=== PATIENT | male | born 1935 | race African-American/Black ===

== ENCOUNTER 2023-02-03 11:32 | Inpatient (IN) | payer OTHER ==
--- OUTSIDE RECORDS SUMMARY | 2023-02-03 11:39 | XMS REPORT | Continuity of Care Document ---
:1935 Author Organization [facility] t Address [address] [place] [address] [place] [id number] Care Team Providers Name Role Phone Rodolfo Durand Primary Care Physician [id number] Attending Clinician Unavailable RODOLFO DURAND Attending Clinician Unavailable LARRY SORTO Attending Clinician Unavailable JEFF FISHER Attending Clinician Unavailable ELVIRA MENDEZ Attending Clinician Unavailable Gita BOYD, [facility] Attending Clinician Doctor Unassigned, [place] Attending Clinician Unavailable Suki Lee RN Attending Clinician Unavailable ELAN WARNER Attending Clinician Unavailable Perri BOYD, Lilian Sahu Attending Clinician [phone] Elan Warner MD Attending Clinician Jackie Lennon Attending Clinician JACKIE GUTIÉRREZ Attending Clinician Unavailable ERIK PEDERSEN Attending Clinician Unavailable Erik Pedersen Rahil Attending Clinician Unavailable Celio BOYD, Kei Corado Attending Clinician Melody Bishop MA Attending Clinician Unavailable Waylon Clakre MD Attending Clinician Lucero PhD, Myla Reed Attending Clinician RASHAAD JAIN Attending Clinician Unavailable [id number] Admitting Clinician Unavailable ELAN WARNER Admitting Clinician Unavailable Elan Warner MD Admitting Clinician RODOLFO DURAND Admitting Clinician Unavailable Erik Pedersen Rahil Admitting Clinician Unavailable Payers Payer Name Policy Type Policy Number Effective Date Expiration Date S [facility] MEDIC[place] PART A [id number] AND B 00:00:00 00:00:00 [facility] [id number] GENERIC OTHER [id number] 2021 00:00:00 [facility] [id number] 2002 PLAN-[facility] 00:00:00 Problems Condition Condition Condition Status Onset Resolution Last Treating Co mments Source Name Details Category Date Date Treatment Clinician Date Class 2 Class 2 Disease Active 2022-03 [facility] obesity obesity 03-19 due to due to 00:00: Hospita excess excess 00 l calories calories without without serious serious comorbidit comorbidit y with y with body mass body mass index index (BMI) of (BMI) of 36.0 to 36.0 to 36.9 in 36.9 in adult adult Primary Primary Disease Active 2022-03 [facility] open angle open angle 03-19 glaucoma glaucoma 00:00: Hospit a (POAG) of (POAG) of 00 l both eyes both eyes Benign Benign Disease Active 2022-03 [facility] non-nodula non-nodula 03-19 r r 00:00: Hospita 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 a without a without lower lower urinary urinary tract tract symptoms symptoms Memory Memory Disease Active [facility] loss loss 9 Health 00:00: 00 Epilepsy Epilepsy Disease Active Metho di 10-25 st 00:00: Hospita 00 l 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 10-25 st 00:00: Hospita 00 l Procedure Procedure Disease Active [facility] not not 5-02 Health carried carried 00:00: out out 00 Seizure Seizure Disease Active Univers 3-13 ity of 00:00: [address] Branch 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 00:00: Hospita disease disease 00 l Seizure Seizure Disease Active 2021-[address] 00:00: Hospita 00 l Dementia Dementia Disease Active [facility] without without 4-12 Health behavioral behavioral 00:00: disturbanc disturbanc 00 e e 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 [address] st Alzheimer' Alzheimer' 00:00: Ho spita s dementia s dementia 00 l Essential Essential Disease Active Met hodi hypertensi hypertensi 4-12 st on on 00:00: Hospita 00 l 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 4 st 00:00: Hospita 00 l No known No known Disease Metho di active active st problems problems Hospit a l Allergies, Adverse Reactions, Alerts Allergy Allergy Status Severity Reaction(s) Onset Inactive Treating Comm ents Source Name Type Date Date Clinician NKA Allergy Active 2021-03 ENCCLR 0-14 14:00: 23 NKA Allergy Active 2021-03 ENCCLR 0-14 14:00: 23 NO KNOWN Drug Active Univers ALLERGIE Class ity of [facility] Family History Family Member Diagnosis Comments Start Date Stop Date Source Natural father [facility] Natural mother Hy[facility] Social History Social Habit Start Date Stop Date Quantity Comments Source Gender identity [facility] Sexual orientation [facility] History of Social 2023-01-17 2023-01-[address] function 00:00:00 00:00:00 Hospital Alcohol intake 2023-01-17 2023-01-17 Current [facility] 00:00:00 00:00:00 non-drinker of Hospital alcohol (finding) Exposure to 2022-06-24 2022-07-04 Not sure [facility] SARS-CoV-2 (event) 00:00:00 10:35:00 History SDOH Food 2022-05-17 2022-05-17 1 Univers ity of Worry 00:00:00 00:00:00 [place] [facility] History SDOH Food 2022-05-17 2022-05-17 1 Univers ity of Scarcity 00:00:00 00:00:00 [place] [facility] History SDOH 2022-05-17 2022-05-17 2 University o f Transport Med 00:00:00 00:00:00 [place] [facility] History SDOH 2022-05-17 2022-05-17 2 University o f Transport Non-Med 00:00:00 00:00:00 [place] [facility] History SDOH 2021-10-11 2021-10-11 2 [facility] Alcohol Frequency 00:00:00 00:00:00 History SDSD 2021-10-11 2021-10-11 0 [facility] Alcohol Std Drinks 00:00:00 00:00:00 History SDSD 2021-10-11 2021-10-11 2 [facility] Alcohol Binge 00:00:00 00:00:00 Education 2021-06-01 2021-06-01 18 [facility] 00:00:00 00:00:00 Alcohol Comment 2021-06-01 2021-06-01 has not had much [facility] 00:00:00 00:00:00 to drink for 50 years Tobacco use and 2020-11-05 2020-11-05 Smokeless [facility] exposure 00:00:00 00:00:00 tobacco non-user Hospital Sex Assigned At [birth year] [facility] Smoking Status Start Date Stop Date Source Tobacco [facility] [place] [facility] Never smoked tobacco [facility] Medications Ordered Filled Start Stop Current Ordering Indication Dosage Frequency Signature Comments Components Source Medication Medication Date Date Medication? Clinician (SIG) Name Name bimatoprost 2022-03- No 1[drp] QD 1 drop M etholegario (LEEANN) 03-[address] 0.01 % 12:06: 00:00 Hospita ophthalmic 44 :00 l drops aspirin 2022-03 Yes 81mg QD Take 1 [facility] (ECOTRIN) 1-15 tablet (81 st 81 MG 11:46: mg total) Hospita enteric 38 by mouth l coated daily. tablet simvastatin 2022-03 Yes [id number] 40mg QD Take 1 [facility] (ZOCOR) 40 1-15 tablet (40 st mg tablet 00:00: mg total) Hos bg 00 by mouth l nightly. OXcarbazepi 2022-03 Yes [id number] 450mg Q.5D Take 3 Methodi ne 1-[address] (TRILEPTAL) 00:00: (450 mg Hos bg 150 MG 00 total) by l tablet mouth 2 (two) times a day. NIFEdipine 2022-03 Yes [id number] 30mg QD Take 1 M ethodi ER 1-15 tablet (30 st (PROCARDIA- 00:00: mg total) H ospita XL) 30 MG 00 by mouth l 24 hr daily. tablet memantine 2022-03 Yes [id number] 5mg QD Take 1 Me thodi (NAMENDA) 5 1-15 tablet (5 st MG tablet 00:00: mg total) Hos bg 00 by mouth l daily. hydrALAZINE 2022-03 Yes [id number] 25mg Q.[id number] Take 1 [facility] (APRESOLINE 1-15 [id number] tablet (25 st ) 25 MG 00:00: 3D mg total) Hospi ta tablet 00 by mouth 3 l (three) times a day with meals. finasteride 2022-03 Yes [id number] 5mg QD Take 1 [facility] (PROSCAR) 5 1-15 tablet (5 st mg tablet 00:00: mg total) Hos bg 00 by mouth l daily. donepeziL 2022-03 Yes [id number] 10mg QD Take 1 Me thodi (ARICEPT) 1-15 tablet (10 st 10 MG 00:00: mg total) Hospita tablet 00 by mouth l nightly. Combigan 2022-03 Yes [id number] 1[drp] Q.5D Administer [facility] 0.2-0.5 % 1-15 [id number] [address] ophthalmic 00:00: both eyes Ho spita solution 00 2 (two) l times a day. bimatoprost 2022-03 Yes [id number] 1[drp] QD Administer [facility] (LUMIGAN) 03-19 [id number] 0.01 % 00:00: both eyes Hospit a ophthalmic 00 nightly. l drops OXcarbazepi Yes [id number] 450mg Q.5D Take 3 UT ne 11-03 tablets Health (Trileptal) 00:00: (450 mg 150 MG 00 total) by tablet mouth in the morning and 3 tablets (450 mg total) in the evening. donepezil 2025- No [id number] 10mg Take 1 U T (Aricept) 11-03-17 tablet (10 Hea lth 10 MG 00:00: 04:59 mg total) tablet 00 :00 by mouth every night. memantine 2023- No [id number] 5mg Q.5D Take 1 U T (Namenda) 5 11-03 08-27 tablet (5 He alth MG tablet 00:00: 04:59 mg total) 00 :00 by mouth in the morning and 1 tablet (5 mg total) in the evening. donepeziL 2022- No 10mg QD Take 1 Metho di (ARICEPT) 11-03-15 tablet (10 st 10 MG 00:00: 00:00 mg total) Hospit a tablet 00 :00 by mouth l nightly. memantine 2022- No 5mg Take 1 Metho di (NAMENDA) 5 11-03-15 tablet (5 st MG tablet 00:00: 00:00 mg total) Ho spita 00 :00 by mouth. l OXcarbazepi 2022- No [id number] TAKE 3 UT ne 10-17 TABLETS BY Health (Trileptal) 00:00: 00:00 MOUTH IN 150 MG 00 :00 THE tablet MORNING AND 3 TABLETS IN THE EVENING. finasteride 0 Yes [id number] 5mg QD Take 1 UT (Proscar) 5 8-10 tablet (5 Hea lth MG tablet 00:00: mg total) 00 by mouth 1 (one) time each day. Do not crush, chew, or split. simvastatin 2022-0 Yes [id number] 40mg Take 1 UT (Zocor) 40 8-10 tablet (40 Hea lth MG tablet 00:00: mg total) 00 by mouth every night. OXcarbazepi 2022-2022- No 450mg Take 3 Me thodi ne 7-15 11-[address] (TRILEPTAL) 00:00: 00:00 (450 mg Ho spita 150 MG 00 :00 total) by l tablet mouth. hydrALAZINE 2023- No [id number] 25mg Q.[id number] Take 1 UT (Apresoline 09-06 07-05 [id number] tablet (25 Health ) 25 MG 00:00: 04:59 3D mg total) tablet 00 :00 by mouth in the morning and 1 tablet (25 mg total) at noon and 1 tablet (25 mg total) in the evening. NIFEdipine Yes [id number] 30mg Take 1 U T XL 5-23 tablet (30 Health (Procardia 00:00: mg total) XL) 30 MG 00 by mouth 1 24 hr (one) time tablet each day before breakfast. ( DO NOT CRUSH CHEW OR SPLIT) NIFEdipine 2022- No 30mg QD Take 1 Meth olegario ER 07-25 11-15 tablet (30 st (PROCARDIA- 00:00: 00:00 mg total) Hospita XL) 30 MG 00 :00 by mouth l 24 hr daily. tablet donepezil 2025- No [id number] 10mg Take 1 U T (Aricept) 07-04-17 tablet (10 Hea lth 10 MG 00:00: 04:59 mg total) tablet 00 :00 by mouth every night. memantine 2023- No [id number] 5mg Q.5D Take 1 U T (Namenda) 5 07-04-27 tablet (5 He alth MG tablet 00:00: 04:59 mg total) 00 :00 by mouth in the morning and 1 tablet (5 mg total) in the evening. donepezil 2022-2022- No [id number] 10mg Take 1 U T (Aricept) 07-04 tablet (10 Hea lth 10 MG 00:00: 00:00 mg total) tablet 00 :00 by mouth every night. memantine 2022-0 2022- No [id number] 5mg Q.5D Take 1 U T (Namenda) 5 5-02 09-01 tablet (5 He alth MG tablet 00:00: 00:00 mg total) 00 :00 by mouth in the morning and 1 tablet (5 mg total) in the evening. aspirin 81 3-0 Yes 81mg QD Take 81 mg U T MG EC 4-27 by mouth 1 Health tablet 11:14: (one) time 30 each day. brimonidine 3-0 Yes 1[drp] Q12H Administer UT -timolol 4-27 1 drop Health (Combigan) 11:14: into both 0.2-0.5 % 30 eyes every ophthalmic 12 solution (twelve) hours. bimatoprost 3-0 Yes 1[drp] 1 drop UT (Lumigan) 4-27 every Health 0.03 % 11:14: night. ophthalmic 30 solution aspirin 81 3-0 Yes 81mg QD Take 81 mg U T MG EC 4-27 by mouth 1 Health tablet 11:14: (one) time 30 each day. brimonidine 3-0 Yes 1[drp] Q12H Administer UT -timolol 4-27 1 drop Health (Combigan) 11:14: into both 0.2-0.5 % 30 eyes every ophthalmic 12 solution (twelve) hours. bimatoprost 3-0 Yes 1[drp] 1 drop UT (Lumigan) 4-27 every Health 0.03 % 11:14: night. ophthalmic 30 solution aspirin 81 3-0 Yes 81mg QD Take 81 mg U T MG EC 4-27 by mouth 1 Health tablet 11:14: (one) time 30 each day. brimonidine 3-0 Yes 1[drp] Q12H Administer UT -timolol 4-27 1 drop Health (Combigan) 11:14: into both 0.2-0.5 % 30 eyes every ophthalmic 12 solution (twelve) hours. bimatoprost 3-0 Yes 1[drp] 1 drop UT (Lumigan) 4-27 every Health 0.03 % 11:14: night. ophthalmic 30 solution OXcarbazepi 2023-0 2024- No [id number] 450mg Q.5D Take 3 UT ne 4-25 04-25 tablets Health (Trileptal) 00:00: 04:59 (450 mg 150 MG 00 :00 total) by tablet mouth in the morning and 3 tablets (450 mg total) in the evening. OXcarbazepi 2023-0 2024- No [id number] 450mg Q.5D Take 3 DC ne 4-25 04-25 tablets Health (Trileptal) 00:00: 04:59 (450 mg 150 MG 00 :00 total) by tablet mouth in the morning and 3 tablets (450 mg total) in the evening. hydrALAZINE 2023-0 Yes 25mg Take 1 Univ ers 25 mg 3-14 tablet by ity of tablet 14:55: mouth in [place] [address] the Medical morning Branch and 1 tablet at noon and 1 tablet in the evening. Takes at 0900, 1500, 2100 OXcarbazepi 2023-0 Yes 450mg Take 3 Uni vers ne 150 mg 3-14 tablets by ity of tablet 14:55: mouth in [place] [address] the Medical morning Branch and 3 tablets in the evening. donepeziL 2022-0 Yes 10mg Take 1 Univer s 10 mg 3-14 tablet by ity of tablet 14:55: mouth at [place] [address] bedtime. Medical Branch aspirin 81 2022-0 Yes 81mg Take 1 Unive rs mg chewable 3-14 tablet by ity of tablet 14:55: mouth in [place] [address] the Medical morning. Branch Brimonidine 2022-0 Yes 2[drp] Place 2 U nivers -Timolol 3-14 Drops in ity of (COMBIGAN) 14:55: each eye Abdirashid as 0.2-0.5 % 34 in the Medical ophthalmic morning Branch drops and 2 Drops in the evening. bimatoprost 2022-0 Yes at Univer s (LUMIGAN) 3-14 bedtime. ity of 0.01 % 14:55: [place] [address] Medical drops Branch finasteride 3-0 Yes 5mg Take 1 Univ ers 5 mg tablet 3-14 tablet by ity of 14:55: mouth in [place] [address] the Medical morning. Branch NIFEdipine 3-0 Yes 30mg Take 1 Unive rs ER 30 mg 3-14 tablet by ity of tablet 14:55: mouth in [place] [address] the Medical morning. Branch hydrALAZINE 3-0 Yes 25mg Take 1 Univ ers 25 mg 3-14 tablet by ity of tablet 14:55: mouth in [place] [address] the Medical morning Branch and 1 tablet at noon and 1 tablet in the evening. Takes at 0900, 1500, 2100 OXcarbazepi 2023-0 Yes 450mg Take 3 Uni vers ne 150 mg 3-14 tablets by ity of tablet 14:55: mouth in [place] [address] the Medical morning Branch and 3 tablets in the evening. donepeziL 2023-0 Yes 10mg Take 1 Univer s 10 mg 3-14 tablet by ity of tablet 14:55: mouth at [place] [address] bedtime. Medical Branch aspirin 81 2022-0 Yes 81mg Take 1 Unive rs mg chewable 3-14 tablet by ity of tablet 14:55: mouth in [place] [address] the Medical morning. Branch Brimonidine 2022-0 Yes 2[drp] Place 2 U nivers -Timolol 3-14 Drops in ity of (COMBIGAN) 14:55: each eye Abdirashid as 0.2-0.5 % 34 in the [facility] ophthalmic morning Branch drops and 2 Drops in the evening. bimatoprost 3-0 Yes at Univer s (LUMIGAN) 3-14 bedtime. ity of 0.01 % 14:55: [place] [address] Medical drops Branch finasteride 3-0 Yes 5mg Take 1 Univ ers 5 mg tablet 3-14 tablet by ity of 14:55: mouth in [place] [address] the Medical morning. Branch NIFEdipine 2022-0 Yes 30mg Take 1 Unive rs ER 30 mg 3-14 tablet by ity of tablet 14:55: mouth in [place] [address] the Medical morning. Branch hydrALAZINE 3-0 Yes 25mg Take 1 Univ ers 25 mg 3-14 tablet by ity of tablet 14:55: mouth in [place] [address] the Medical morning Branch and 1 tablet at noon and 1 tablet in the evening. Takes at 0900, 1500, 2100 OXcarbazepi 2023-0 Yes 450mg Take 3 Uni vers ne 150 mg 3-14 tablets by ity of tablet 14:55: mouth in [place] [address] the Medical morning Branch and 3 tablets in the evening. donepeziL 2023-0 Yes 10mg Take 1 Univer s 10 mg 3-14 tablet by ity of tablet 14:55: mouth at [place] [address] bedtime. Medical Branch aspirin 81 3-0 Yes 81mg Take 1 Unive rs mg chewable 3-14 tablet by ity of tablet 14:55: mouth in [place] [address] the Medical morning. Branch Brimonidine Yes 2[drp] Place 2 U nivers -Timolol 3-14 Drops in ity of (COMBIGAN) 14:55: each eye Abdirashid as 0.2-0.5 % 34 in the Medical ophthalmic morning Branch drops and 2 Drops in the evening. bimatoprost 2022-0 Yes at Univer s (LUMIGAN) 3-14 bedtime. ity of 0.01 % 14:55: [place] ophthalmic Medical drops Branch finasteride 0 Yes 5mg Take 1 Univ ers 5 mg tablet 3-14 tablet by ity of 14:55: mouth in [place] [address] the Medical morning. [place] NIFEdipine 0 Yes 30mg Take 1 Unive rs ER 30 mg 3-14 tablet by ity of tablet 14:55: mouth in [place] [address] the Medical morning. [place] carvediloL 0 2022- No 12.5mg Take 1 Un derek 12.5 mg 3-14 03-14 tablet by ity of tablet 14:55: 00:00 mouth in [place] 29 :00 the Medical morning Branch and 1 tablet in the evening. Take with meals. simvastatin 2022-0 2022- No 40mg Take 1 Uni vers 40 mg 3-14 03-14 tablet by ity of tablet 14:55: 00:00 mouth at [place] 29 :00 bedtime. [facility] aspirin 0 Yes 81mg 81 mg, Univers chewable 3-14 Oral, ity of tablet 81 14:00: DAILY, [place] mg 00 First dose Medical on [facility] 05/16/22 at 0900, Until Discontinu ed, Routine carvediloL 0 Yes 12.5mg 12.5 mg, U nivers (COREG) 3-14 Oral, BID ity of tablet 12.5 13:00: MEALS, [place] mg 00 First dose Medical on [facility] 05/16/22 at 0800, Until Discontinu ed, Routine donepeziL 0 Yes 10mg 10 mg, Univer s (ARICEPT) 3-14 Oral, QHS, ity of tablet 10 02:00: First dose [place] mg 00 on [facility] 05/15/22 at [place] 2100, Until Discontinu ed, Routine QUEtiapine 2022- No 25mg 25 mg, Univ ers (SEROQUEL) 05-16 03-14 Oral, ity of tablet 25 02:00: 01:19 ONCE, 1 [place] mg [place] :00 dose, On Medical [facility] Branch 05/15/22 at 2100, Routine haloperidol 0 Yes 2.5mg 2.5 mg, Un derek lactate 3-14 Slow IV ity of (HALDOL) 01:30: Push, PRN, Abdirashid as injection 34 2 doses, Medica l 2.5 mg Starting Branch on Sun05/15/22 at 2030, Until Discontinu ed, Routine, Psychosis hydrALAZINE 0 Yes 25mg 25 mg, Univ ers (APRESOLINE 3-14 Oral, TID, it y of ) tablet 25 01:00: First dose [place] mg 00 on [facility] Medical 05/15/22 at Branch 1999, Until Discontinu ed, Routine OXcarbazepi 0 Yes 450mg 450 mg, Un derek ne 3-14 Oral, BID, ity of (TRILEPTAL) 01:00: First dose [place] tablet 450 00 on [facility] mg 05/15/22 at Branch 1999, Until Discontinu ed, Routine enoxaparin 0 Yes 30mg 30 mg, Unive rs (LOVENOX) 05-15 Subcutaneo ity of injection 22:00: us, DAILY, [place] 30 mg 00 First dose Medical on [place] Branch 05/15/22 at 1700, Until Discontinu ed, Routine acetaminoph 0 Yes 650mg 650 mg, Un derek en 13 Oral, ity of (TYLENOL) 19:58: Q6HPRN, [place] tablet 650 56 Starting Medic al mg on Sun Branch 05/15/22 at 1458, Until Discontinu ed, Routine, Pain (scale 1-3) NaCl 0.9% 2022- No 500mL at 999 Univ ers (NS) bolus 05-15-13 mL/hr, 500 it y of infusion 18:15: 20:37 mL, IV [place] 500 mL 00 :00 Infusion, Medical ONCE, 1 Branch dose, On Sun05/15/22 at 1315, STAT hydralAZINE 2022- No 10mg 10 mg, Uni vers (APRESOLINE 3-07 03-07 Slow IV ity of ) injection 02:15: 02:13 [place], [place] 10 mg 00 :00 ONCE, 1 Medical dose, On Branch Sun05/08/22 at 2015, [facility] hydralAZINE 0 2022- No 10mg 10 mg, Uni vers (APRESOLINE 307 03-07 Slow IV ity of ) injection 01:15: 01:17 [place], [place] 10 mg 00 :00 ONCE, 1 Medical dose, On Branch Sun05/08/22 at 1915, [facility] memantine 0 Yes [id number] 5mg Q.5D Take 1 UT (Namenda) 5 2-15 tablet (5 Hea lth MG tablet 00:00: mg total) 00 by mouth in the morning and 1 tablet (5 mg total) in the evening. donepezil 2022- No [id number] 10mg Take 1 U T (Aricept) 2-15 05-17 tablet (10 Hea lth 10 MG 00:00: 04:59 mg total) tablet 00 :00 by mouth every night. donepezil 2022- No [id number] 10mg Take 1 U T (Aricept) 2-15 05-02 tablet (10 Hea lth 10 MG 00:00: 00:00 mg total) tablet 00 :00 by mouth every night. memantine 2022- No [id number] 5mg Q.5D Take 1 U T (Namenda) 5 2-15 05-02 tablet (5 He alth MG tablet 00:00: 00:00 mg total) 00 :00 by mouth in the morning and 1 tablet (5 mg total) in the evening. NIFEdipine Yes [id number] Take 1 U T XL 1-30 tablet by Health (Procardia 00:00: mouth once XL) 30 MG 00 a day 24 hr before tablet breakfast ( Do not crush, chew, or split) NIFEdipine 2022-0 Yes [id number] Take 1 U T XL 1-30 tablet by Health (Procardia 00:00: mouth once XL) 30 MG 00 a day 24 hr before tablet breakfast ( Do not crush, chew, or split) hydrALAZINE 2021-03- No [id number] 25mg Q.[id number] Take 1 UT (Apresoline 04-10 [id number] tablet (25 Health ) 25 MG 00:00: 05:59 3D mg total) tablet 00 :00 by mouth in the morning and 1 tablet (25 mg total) at noon and 1 tablet (25 mg total) in the evening. hydrALAZINE 2021-03- No [id number] 25mg Q.[id number] Take 1 UT (Apresoline 04-10 [id number] tablet (25 Health ) 25 MG 00:00: 05:59 3D mg total) tablet 00 :00 by mouth in the morning and 1 tablet (25 mg total) at noon and 1 tablet (25 mg total) in the evening. carvedilol 2021-03- No [id number] 12.5mg Take 1 UT (Coreg) 03-13 tablet Health 12.5 MG 00:00: 00:00 (12.5 mg tablet 00 :00 total) by mouth in the morning and 1 tablet (12.5 mg total) in the evening. Take with meals. Take 12.5 mg by mouth in the morning and 12.5 mg in the evening. Take with meals.. finasteride Yes [id number] 5mg QD Take 1 UT (Proscar) 5 5-24 tablet (5 Hea lth MG tablet 00:00: mg total) 00 by mouth 1 (one) time each day. Do not crush, chew, or split. simvastatin Yes [id number] 40mg Take 1 UT (Zocor) 40 5-24 tablet (40 Hea lth MG tablet 00:00: mg total) 00 by mouth every night. finasteride Yes [id number] 5mg QD Take 1 UT (Proscar) 5 5-24 tablet (5 Hea lth MG tablet 00:00: mg total) 00 by mouth 1 (one) time each day. Do not crush, chew, or split. simvastatin 0 Yes [id number] 40mg Take 1 UT (Zocor) 40 5-24 tablet (40 Hea lth MG tablet 00:00: mg total) 00 by mouth every night. finasteride Yes [id number] Take 1 [facility]i (PROSCAR) 5 5-[address] mg tablet 00:00: mouth Hospita 00 daily l amLODIPine 2022-0 Yes [id number] Take 1 M ethodi (NORVASC) 5-[address] 10 mg 00:00: mouth Hospita tablet 00 daily l finasteride 2-0 Yes [id number] Take 1 [facility] (PROSCAR) 5 5-[address] mg tablet 00:00: mouth Hospita 00 daily l amLODIPine 2022-0 Yes [id number] Take 1 M ethodi (NORVASC) 5-[address] 10 mg 00:00: mouth Hospita tablet 00 daily l finasteride 2021-0 Yes [id number] Take 1 [facility]i (PROSCAR) 5 5-[address] mg tablet 00:00: mouth Hospita 00 daily l amLODIPine 2021-0 Yes [id number] Take 1 M ethodi (NORVASC) 5-[address] 10 mg 00:00: mouth Hospita tablet 00 daily l finasteride 2021-0 Yes [id number] Take 1 Methodi (PROSCAR) 5 5-[address] mg tablet 00:00: mouth Hospita 00 daily l amLODIPine 2021-0 Yes [id number] Take 1 M ethodi (NORVASC) 5-[address] 10 mg 00:00: mouth Hospita tablet 00 daily l finasteride 2021-0 Yes [id number] Take 1 Methodi (PROSCAR) 5 5-[address] mg tablet 00:00: mouth Hospita 00 daily l amLODIPine 2-0 Yes [id number] Take 1 M ethodi (NORVASC) 5-[address] 10 mg 00:00: mouth Hospita tablet 00 daily l finasteride 2-0 Yes [id number] Take 1 Methodi (PROSCAR) 5 5-[address] mg tablet 00:00: mouth Hospita 00 daily l amLODIPine 2022-0 Yes [id number] Take 1 M ethodi (NORVASC) 5-[address] 10 mg 00:00: mouth Hospita tablet 00 daily l finasteride 2022-0 2023- No [id number] Take 1 [facility]i (PROSCAR) 5 5-23 11-[address] mg tablet 00:00: 00:00 mouth Hospit a 00 :00 daily l amLODIPine 2022-0 2023- No [id number] Take 1 [facility]i (NORVASC) 5-23 11-[address] 10 mg 00:00: 00:00 mouth Hospita tablet 00 :00 daily l allopurinoL 2022-0 Yes [id number] Take 1 [facility] (ZYLOPRIM) 2-[address] 300 MG 00:00: mouth Hospita tablet 00 daily l simvastatin 2022-0 Yes [id number] Take 1 [facility] (ZOCOR) 40 2-[address] mg tablet 00:00: mouth Hospita 00 nightly l allopurinoL 2022-0 Yes [id number] Take 1 [facility] (ZYLOPRIM) 2-[address] 300 MG 00:00: mouth Hospita tablet 00 daily l simvastatin 2022-0 Yes [id number] Take 1 [facility] (ZOCOR) 40 2-[address] mg tablet 00:00: mouth Hospita 00 nightly l allopurinoL 2022-0 Yes [id number] Take 1 [facility] (ZYLOPRIM) 2-[address] 300 MG 00:00: mouth Hospita tablet 00 daily l simvastatin 2022-0 Yes [id number] Take 1 [facility] (ZOCOR) 40 2-[address] mg tablet 00:00: mouth Hospita 00 nightly l allopurinoL 2022-0 Yes [id number] Take 1 [facility] (ZYLOPRIM) 2-[address] 300 MG 00:00: mouth Hospita tablet 00 daily l simvastatin 2022-0 Yes [id number] Take 1 [facility] (ZOCOR) 40 2-[address] mg tablet 00:00: mouth Hospita 00 nightly l allopurinoL 2022-0 Yes [id number] Take 1 [facility] (ZYLOPRIM) 2-[address] 300 MG 00:00: [facility] tablet 00 daily l simvastatin 2022-0 Yes [id number] Take 1 [facility] (ZOCOR) 40 2-[address] mg tablet 00:[facility]: [facility] 00 nightly l allopurinoL 2022-0 Yes [id number] Take 1 [facility] (ZYLOPRIM) 2-[address] 300 MG 00:00: [facility] tablet 00 daily l simvastatin 2022-0 Yes [id number] Take 1 [facility] (ZOCOR) 40 - tablet by st mg tablet 00:[facility]: [facility] 00 nightly l allopurinoL 2022- No [id number] Take 1 [facility] (ZYLOPRIM) 05-[address] 300 MG 00:00: 00:00 [facility] tablet 00 :00 daily l simvastatin 2021-0 3- No [id number] Take 1 [facility] (ZOCOR) 40 05-[address] mg tablet 00:00: 00:00 mouth [facility] 00 :00 nightly l donepeziL 2021-0 2023- No 10mg QD Take 1 [facility] (Aricept) 05-02 tablet (10 st 10 MG 00:00: 05:59 mg total) [facility] tablet 00 :00 by mouth l nightly. donepeziL 2021-0 2023- No 10mg QD Take 1 [facility] ([facility]pt) 05-02 tablet (10 st 10 MG 00:00: 05:59 mg total) [facility] tablet 00 :00 by mouth l nightly. donepeziL 2021-0 2023- No 10mg QD Take 1 [facility] (Ar[facility]pt) 05-02 tablet (10 st 10 MG 00:00: 05:59 mg total) [facility] tablet 00 :00 by mouth l nightly. donepeziL 2021-0 2023- No 10mg QD Take 1 [facility] (Ar[facility]pt) 05-02 tablet (10 st 10 MG 00:00: 05:59 mg total) [facility] tablet 00 :00 by mouth l nightly. donepeziL 2-0 2023- No 10mg QD Take 1 [facility] (Aricept) 05-02 tablet (10 st 10 MG 00:00: 05:59 mg total) [facility] tablet 00 :00 by mouth l nightly. donepeziL 2022-0 2023- No 10mg QD Take 1 [facility] ([facility]pt) 05-02 tablet (10 st 10 MG 00:00: 05:59 mg total) [facility] tablet 00 :00 by mouth l nightly. donepeziL 2022-0 2023- No 10mg QD Take 1 [facility] (Aricept) 2-28 03-01 tablet (10 st 10 MG 00:00: 05:59 mg total) [facility] tablet 00 :00 by mouth l nightly. triamterene Yes [id number] 1{tbl} QD Take 1 [facility] (MAXZIDE-25 00 every l ) 37.5-25 morning mg per tablet triamterene 0 Yes [id number] 1{tbl} QD Take 1 [facility] (MAXZIDE-25 00 every l ) 37.5-25 morning mg per tablet triamterene 0 Yes [id number] 1{tbl} QD Take 1 [facility] (MAXZIDE-25 00 every l ) 37.5-25 morning mg per tablet triamterene 0 Yes [id number] 1{tbl} QD Take 1 [facility] (MAXZIDE-25 00 every l ) 37.5-25 morning mg per tablet triamterene 2021-0 Yes [id number] 1{tbl} QD Take 1 [facility] (MAXZIDE-25 00 every l ) 37.5-25 morning mg per tablet triamterene 2021-0 Yes [id number] 1{tbl} QD Take 1 [facility] (MAXZIDE-25 00 every l ) 37.5-25 morning mg per tablet triamterene 2021-0 2022- No [id number] 1{tbl} QD Take 1 [facility] (MAXZIDE-25 00 :00 every l ) 37.5-25 morning mg per tablet tamsulosin 2021-0 Yes [id number] Take 2 [facility] (FLOMAX) 1-[address] 0.4 mg 00:00: by [facility] capsule 00 once a day l metoprolol 2022-0 Yes [id number] 100mg Q.5D Take 1 [facility] tartrate 1-[address] (LOPRESSOR) 00:00: (100 mg Hos bg 100 mg 00 total) by l tablet mouth 2 (two) times a day. tamsulosin 2022-0 Yes [id number] Take 2 [facility] (FLOMAX) 1-[address] 0.4 mg 00:00: by [facility] capsule 00 once a day l metoprolol 2022-0 Yes [id number] 100mg Q.5D Take 1 [facility] tartrate 1-[address] (LOPRESSOR) 00:00: (100 mg Hos bg 100 mg 00 total) by l tablet mouth 2 (two) times a day. tamsulosin 2022-0 Yes [id number] Take 2 [facility] (FLOMAX) 1-[address] 0.4 mg 00:00: by [facility] capsule 00 once a day l metoprolol 2022-0 Yes [id number] 100mg Q.5D Take 1 [facility] tartrate 1-[address] (LOPRESSOR) 00:00: (100 mg Hos bg 100 mg 00 total) by l tablet mouth 2 (two) times a day. tamsulosin 2022-0 Yes [id number] Take 2 [facility] (FLOMAX) 1-[address] 0.4 mg 00:00: by [facility] capsule 00 once a day l metoprolol 2022-0 Yes [id number] 100mg Q.5D Take 1 [facility]rate 1-[address] (LOPRESSOR) 00:00: (100 mg Hos bg 100 mg 00 total) by l tablet mouth 2 (two) times a day. tamsulosin 2022-0 Yes [id number] Take 2 [facility] (FLOMAX) 1-[address] 0.4 mg 00:00: by [facility] capsule 00 once a day l metoprolol 2022-0 Yes [id number] 100mg Q.5D Take 1 [facility] tartrate 1-[address] (LOPRESSOR) 00:00: (100 mg Hos bg 100 mg 00 total) by l tablet mouth 2 (two) times a day. tamsulosin 2022-0 Yes [id number] Take 2 [facility] (FLOMAX) 1-[address] 0.4 mg 00:00: by [facility] capsule 00 once a day l metoprolol Yes [id number] 100mg Q.5D Take 1 [facility] tartrate 1-[address] (LOPRESSOR) 00:00: (100 mg Hos bg 100 mg 00 total) by l tablet mouth 2 (two) times a day. tamsulosin 2022- No [id number] Take 2 [facility] (FLOMAX) 1- 11-[address] 0.4 mg 00:00: 00:00 by mouth [facility] capsule 00 :00 once a day l metoprolol 2022- No [id number] 100mg Q.5D Take 1 [facility] tartrate 03-07-[address] (LOPRESSOR) 00:00: 00:00 (100 mg [facility] 100 mg 00 :00 total) by l tablet mouth 2 (two) times a day. metoprolol 2020-03 No [id number] 100mg Q.5D Take 1 [facility] tartrate 05-02-[address] (LOPRESSOR) 00:00: 00:00 (100 mg [facility] 100 mg 00 :00 total) by l tablet mouth 2 (two) times a day. metoprolol 2020-03 No [id number] 100mg Q.5D Take 1 [facility] tartrate 05-02-[address] (LOPRESSOR) 00:00: 00:00 (100 mg [facility] 100 mg 00 :00 total) by l tablet mouth 2 (two) times a day. donepeziL 2020-03- No 5mg QD Take 1 [facility] ([facility]pt) 5 04-25 tablet (5 st MG tablet 00:00: 05:59 mg total) [facility] 00 :00 by mouth l nightly. donepeziL 2020-03- No 5mg QD Take 1 [facility] ([facility]pt) 5 04-25- tablet (5 st MG tablet 00:00: 05:59 mg total) [facility] 00 :00 by mouth l nightly. donepeziL 2020-03- No 5mg QD Take 1 [facility] ([facility]pt) 5 04-25- tablet (5 st MG tablet 00:00: 05:59 mg total) [facility] 00 :00 by mouth l nightly. donepeziL 2020-03- No 5mg QD Take 1 [facility] ([facility]pt) 5 04-25- tablet (5 st MG tablet 00:00: 05:59 mg total) [facility] 00 :00 by mouth l nightly. donepeziL 2020-03- No 5mg QD Take 1 [facility] (Ar[facility]pt) 5 04-25 tablet (5 st MG tablet 00:00: 05:59 mg total) [facility] 00 :00 by mouth l nightly. donepeziL 2020-03- No 5mg QD Take 1 [facility] (Aricept) 5 04-25 tablet (5 st MG tablet 00:00: 05:59 mg total) [facility] 00 :00 by mouth l nightly. donepeziL 2020-03- No 5mg QD Take 1 [facility] (Aricept) 5 04-25 tablet (5 st MG tablet 00:00: 05:59 mg total) [facility] 00 :00 by mouth l nightly. donepeziL 2020-03- No 10mg QD Take 1 [facility] ([facility]pt) 04-25 tablet (10 st 10 MG 00:00: 00:00 mg total) [facility] tablet 00 :00 by mouth l nightly. donepeziL 2020-03 No 10mg QD Take 1 [facility] ([facility]pt) 04-25 tablet (10 st 10 MG 00:00: 00:00 mg total) [facility] tablet 00 :00 by mouth l nightly. triamterene 2020-03- No [id number] 1{tbl} QD Take 1 [facility] -hydrochlor 03-[address] othiazid 00:00: 00:00 [facility] (MAXZIDE-25 00 :00 every l ) 37.5-25 morning mg per tablet triamterene 2020-03- No [id number] 1{tbl} QD Take 1 [facility] -hydrochlor 03-12- tablet by st othiazid 00:00: 00:00 [facility] (MAXZIDE-25 00 :00 every l ) 37.5-25 morning mg per tablet lisinopriL 2020-03 Yes [id number] 40mg QD Take 1 [facility] (PRINIVIL) 0-25 tablet (40 st 40 mg 00:00: mg total) [facility]ospita tablet 00 by mouth l daily. lisinopriL 2020-03 Yes [id number] 40mg QD Take 1 [facility] (PRINIVIL) 0-25 tablet (40 st 40 mg 00:00: mg total) [facility]ospita tablet 00 by mouth l daily. lisinopriL 2020-03 Yes [id number] 40mg QD Take 1 [facility] (PRINIVIL) 0-25 tablet (40 st 40 mg 00:00: mg total) [facility]ospita tablet 00 by mouth l daily. lisinopriL 2020-03 Yes [id number] 40mg QD Take 1 [facility] (PRINIVIL) 0-25 tablet (40 st 40 mg 00:00: mg total) [facility]ospita tablet 00 by mouth l daily. lisinopriL 2020-03 Yes [id number] 40mg QD Take 1 [facility] (PRINIVIL) 0-25 tablet (40 st 40 mg 00:00: mg total) [facility]ospita tablet 00 by mouth l daily. lisinopriL 2020-03 Yes [id number] 40mg QD Take 1 [facility] (PRINIVIL) 0-25 tablet (40 st 40 mg 00:00: mg total) [facility]osp[facility] tablet 00 by mouth l daily. lisinopriL 2020-03- No [id number] 40mg QD Take 1 [facility] (PRINIVIL) 0-25 11-15 tablet (40 st 40 mg 00:00: 00:00 mg total) [facility] tablet 00 :00 by mouth l daily. amLODIPine 2020-03- No [id number] Take 1 [facility] (NORVASC) 0-25 05-[address] 10 mg 00:00: 00:00 [facility] tablet 00 :00 daily l amLODIPine 2020-03- No [id number] Take 1 [facility] (NORVASC) 0-25 05-[address] 10 mg 00:00: 00:00 [facility] tablet 00 :00 daily l amLODIPine 2020-03- No [id number] Take 1 [facility] (NORVASC) 0-25 05-[address] 10 mg 00:00: 00:00 [facility] tablet 00 :00 daily l aspirin 2020-0 Yes 81mg QD Take 81 mg [facility] (ECOTRIN) 11-[address] 81 MG 09:35: daily. [facility]ospita enteric 37 l coated tablet bimatoprost 2020-0 Yes 1[drp] QD 1 drop [facility] (LUMIGAN) 11-[address] 0.01 % 09:35: [facility]ospita ophthalmic 37 l drops aspirin 2020-0 Yes 81mg QD Take 81 mg [facility] (ECOTRIN) 11-[address] 81 MG 09:35: daily. [facility]osp[facility] enteric 37 l coated tablet bimatoprost 2020-0 Yes 1[drp] QD 1 drop [facility] (LUMIGAN) 11-[address] 0.01 % 09:35: [facility]ospita ophthalmic 37 l drops aspirin 2020-0 Yes 81mg QD Take 81 mg [facility] (ECOTRIN) 11-[address] 81 MG 09:35: daily. [facility]osp[facility] enteric 37 l coated tablet bimatoprost 2020-0 Yes 1[drp] QD 1 drop [facility] (LUMIGAN) 11-[address] 0.01 % 09:35: [facility]osp[facility] ophthalmic 37 l drops aspirin 2020-0 Yes 81mg QD Take 81 mg [facility] (ECOTRIN) 11-[address] 81 MG 09:35: daily. [facility]osp[facility] enteric 37 l coated tablet bimatoprost 2020-0 Yes 1[drp] QD 1 [facility] (LUMIGAN) 11-[address] 0.01 % 09:35: [facility]osp[facility] ophthalmic 37 l drops aspirin 1-0 Yes 81mg QD Take 81 mg [facility] (ECOTRIN) 11-[address] 81 MG 09:35: daily. [facility]osp[facility] enteric 37 l coated tablet bimatoprost 2020-0 Yes 1[drp] QD 1 [facility] (LUMIGAN) 11-[address] 0.01 % 09:35: [facility]osp[facility] ophthalmic 37 l drops aspirin 1-0 Yes 81mg QD Take 81 mg [facility] (ECOTRIN) 11-[address] 81 MG 09:35: daily. [facility]osp[facility] enteric 37 l coated tablet bimatoprost 2020-0 Yes 1[drp] QD 1 [facility] (LUMIGAN) 11-[address] 0.01 % 09:35: [facility]osp[facility] ophthalmic 37 l drops furosemide 2020-0 Yes [id number] 20mg QD Take 1 [facility] (LASIX) 20 9- tablet (20 st mg tablet 00:00: mg total) Hos bg 00 by mouth l daily. hydrALAZINE 0 Yes [id number] 25mg Q.[id number] Take 1 [facility] (APRESOLINE - [id number] tablet (25 st ) 25 MG 00:00: 3D mg total) Hospi ta tablet 00 by mouth 3 l (three) times a day with meals. furosemide 0 Yes [id number] 20mg QD Take 1 [facility] (LASIX) 20 11-05 tablet (20 st mg tablet 00:00: mg total) Hos bg 00 by mouth l daily. hydrALAZINE 0 Yes [id number] 25mg Q.[id number] Take 1 [facility] (APRESOLINE - [id number] tablet (25 st ) 25 MG 00:00: 3D mg total) [facility]pi ta tablet 00 by mouth 3 l (three) times a day with meals. furosemide 0 Yes [id number] 20mg QD Take 1 [facility] (LASIX) 20 11-05 tablet (20 st mg tablet 00:00: mg total) Hos bg 00 by mouth l daily. hydrALAZINE 0 Yes [id number] 25mg Q.[id number] Take 1 [facility] (APRESOLINE - [id number] tablet (25 st ) 25 MG 00:00: 3D mg total) [facility] ta tablet 00 by mouth 3 l (three) times a day with meals. furosemide 0 Yes [id number] 20mg QD Take 1 [facility] (LASIX) 20 -03 tablet (20 st mg tablet 00:00: mg total) Hos bg 00 by mouth l daily. hydrALAZINE 2020-0 Yes [id number] 25mg Q.[id number] Take 1 [facility] (APRESOLINE 9- [id number] tablet (25 st ) 25 MG 00:00: 3D mg total) [facility] ta tablet 00 by mouth 3 l (three) times a day with meals. furosemide Yes [id number] 20mg QD Take 1 [facility] (LASIX) 20 9-03 tablet (20 st mg tablet 00:00: mg total) Hos bg 00 by mouth l daily. hydrALAZINE Yes [id number] 25mg Q.[id number] Take 1 [facility] (APRESOLINE - [id number] tablet (25 st ) 25 MG 00:00: 3D mg total) [facility] ta tablet 00 by mouth 3 l (three) times a day with meals. furosemide Yes [id number] 20mg QD Take 1 [facility] (LASIX) 20 11-05 tablet (20 st mg tablet 00:00: mg total) Hos bg 00 by mouth l daily. hydrALAZINE Yes [id number] 25mg Q.[id number] Take 1 [facility] (APRESOLINE - [id number] tablet (25 st ) 25 MG 00:00: 3D mg total) Hospi ta tablet 00 by mouth 3 l (three) times a day with meals. furosemide 2022- No [id number] 20mg QD Take 1 [facility] (LASIX) 20 11-05 11-15 tablet (20 st mg tablet 00:00: 00:00 mg total) [facility] 00 :00 by mouth l daily. hydrALAZINE 2022- No [id number] 25mg Q.[id number] Take 1 [facility] (APRESOLINE 11-05 11-15 [id number] tablet (25 st ) 25 MG 00:00: 00:00 3D mg total) [facility] tablet 00 :00 by mouth 3 l (three) times a day with meals. finasteride 2021- No [id number] 5mg QD Take 1 [facility] (PROSCAR) 5 11-05 05-23 tablet (5 st mg tablet 00:00: 00:00 mg total) [facility] 00 :00 by mouth l daily. finasteride 2021- No [id number] 5mg QD Take 1 [facility] (PROSCAR) 5 11-05 05-23 tablet (5 st mg tablet 00:00: 00:00 mg total) [facility] 00 :00 by mouth l daily. finasteride 2021- No [id number] 5mg QD Take 1 [facility] (PROSCAR) 5 11-05 05-23 tablet (5 st mg tablet 00:00: 00:00 mg total) [facility] 00 :00 by mouth l daily. allopurinoL No [id number] 300mg QD Take 1 [facility] (ZYLOPRIM) 11-[address] 300 MG 00:00: 00:00 (300 mg [facility]osp[facility] tablet 00 :00 total) by l mouth daily. simvastatin No [id number] 40mg QD Take 1 [facility] (ZOCOR) 40 11-05 tablet (40 st mg tablet 00:00: 00:00 mg total) [facility] 00 :00 by mouth l nightly. allopurinoL No [id number] 300mg QD Take 1 [facility] (ZYLOPRIM) 11-[address] 300 MG 00:00: 00:00 (300 mg [facility]osp[facility] tablet 00 :00 total) by l mouth daily. simvastatin No [id number] 40mg QD Take 1 [facility] (ZOCOR) 40 11-05 tablet (40 st mg tablet 00:00: 00:00 mg total) [facility] 00 :00 by mouth l nightly. lisinopriL 2020- No [id number] 40mg QD Take 1 [facility] (PRINIVIL) 11-05 10-25 tablet (40 st 40 mg 00:00: 00:00 mg total) Hospit a tablet 00 :00 by mouth l daily. lisinopriL No [id number] 40mg QD Take 1 [facility] (PRINIVIL) 11-05 10-25 tablet (40 st 40 mg 00:00: 00:00 mg total) Hospit a tablet 00 :00 by mouth l daily. metoprolol 2020- No [id number] Take 1 [facility] tartrate 8-03 03- tablet by st (LOPRESSOR) 00:00: 00:00 mouth [facility] 100 mg 00 :00 twice l tablet daily metoprolol 2020- No [id number] Take 1 [facility] tartrate 8-30 -[address] (LOPRESSOR) 00:00: 00:00 mouth [facility] 100 mg 00 :00 twice l tablet daily tamsulosin 2021- No [id number] Take 2 [facility] (FLOMAX) 10-27- capsules st 0.4 mg 00:00: 00:00 by mouth [facility] a capsule 00 :00 once a day l tamsulosin 2021- No [id number] Take 2 [facility] (FLOMAX) 10-[address] 0.4 mg 00:00: 00:00 by mouth [facility] a capsule 00 :00 once a day l amLODIPine 2020- No [id number] Take 1 [facility] (NORVASC) 8- 10-[address] 10 mg 00:00: 00:00 [facility] tablet 00 :00 daily l amLODIPine 2020- No [id number] Take 1 [facility] (NORVASC) 8- 10-[address] 10 mg 00:00: 00:00 [facility] tablet 00 :00 daily l triamterene 2020- No [id number] 1{tbl} QD Take 1 [facility] -hydrochlor 5-17 -[address] othiazid 00:00: 00:00 [facility] (MAXZIDE-25 00 :00 every l ) 37.5-25 morning mg per tablet triamterene 2020- No [id number] 1{tbl} QD Take 1 [facility] -hydrochlor 5-17 11-[address] othiazid 00:00: 00:00 [facility] (MAXZIDE-25 00 :00 every l ) 37.5-25 morning mg per tablet COMBIGAN 2017-0 Yes [facility] 0.2-0.5 % 9- st ophthalmic 00:00: Hospita solution 00 l COMBIGAN 2017-0 Yes [facility] 0.2-0.5 % 9-11 st ophthalmic 00:00: Hospita solution 00 l COMBIGAN 2017-0 Yes [facility] 0.2-0.5 % 9-11 st ophthalmic 00:00: Hospita solution 00 l COMBIGAN 2017-0 Yes [facility] 0.2-0.5 % 9- st ophthalmic 00:00: Hospita solution 00 l COMBKEYONNA 2016-0 Yes [facility] 0.2-0.5 % 9-11 st ophthalmic 00:00: Hospita solution 00 l COMBIGAN Yes [facility] 0.2-0.5 % -11 st ophthalmic 00:00: Hospita solution 00 l COMBIGAN 2022- No [facility] 0.2-0.5 % -11 11-15 st ophthalmic 00:00: 00:00 Hospit a solution 00 :00 l Immunizations Ordered Filled Immunization Date Status Comments [facility] e Immunization Name Name Pneumococcal 2021-12-30 Completed [facility] Conjugate PCV 20 00:00:00 Pneumococcal 2021-12-30 Completed [facility] Conjugate PCV 20 00:00:00 Pneumococcal 2021-12-30 [facility]pleted [facility] Conjugate PCV 20 00:00:00 Influenza, live, 2021-12-03 [facility] Influenza, live, 2021-12-03 [facility]:00 Influenza, live, 2021-12-03 [facility]:00 COVID-19 Pfizer 2021-07-25 Completed [facility] 12+yr 00:00:00 (egan) COVID-19 Pfizer 2021-07-25 Completed [facility] 12+yr 00:00:00 (egan) COVID-19 Pfizer 2021-07-25 Completed [facility] 12+yr 00:00:00 (egan) PFIZER COVID-19 2020-11-30 Completed [facility] 00:00:00 [facility] PFIZER COVID-19 2020-11-30 Completed [facility] 00:00:00 [facility] PFIZER COVID-19 2020-11-30 Completed [facility] 00:00:00 [facility] PFIZER COVID-19 2020-11-30 Completed [facility] 00:00:00 [facility] PFIZER COVID-19 2020-11-30 Completed [facility] 00:00:00 [facility] COVID-19 Pfizer 2020-04-30 [facility] (PURPLE-DILUTE) COVID-19 Pfizer 2020-04-30 [facility] (PURPLE-DILUTE) COVID-19 Pfizer 2020-04-30 [facility] (PURPLE-DILUTE) PFIZER COVID-19 2020-04-30 Completed [facility] 00:00:00 [facility] PFIZER COVID-19 2020-04-30 Completed [facility] 00:00:00 [facility] PFIZER COVID-19 2020-04-30 Completed [facility] 00:00:00 [facility] PFIZER COVID-19 2020-04-30 Completed [facility] 00:00:00 Hospital PFIZER COVID-19 2020-04-30 Completed [facility] 00:00:00 [facility] COVID-19 Pfizer 2020-04-09 [facility] (PURPLE-DILUTE) COVID-19 Pfizer 2020-04-09 [facility] (PURPLE-DILUTE) COVID-19 Pfizer 2020-04-09 [facility] (PURPLE-DILUTE) PFIZER COVID-19 2020-04-09 Completed [facility] VACC[facility] 00:00:00 [facility] PFIZER COVID-19 2020-04-09 Completed [facility] VACC[facility] 00:00:00 [facility] PFIZER COVID-19 2020-04-09 Completed [facility] 00:00:00 Hospital PFIZER COVID-19 2020-04-09 Completed [facility] 00:00:00 Hospital PFIZER COVID-19 2020-04-09 Completed [facility]ACC[facility] 00:00:00 [facility] FLUCELVAX QUAD PF 2019-11-[address] [facility] FLUCELVAX QUAD PF 2019-11-[address] 00:[facility] FLUCELVAX QUAD PF 2019-11-[address] 00:[facility] FLUCELVAX QUAD PF 2019-11-[address] 00:[facility]:00 [facility] FLUCELVAX QUAD PF 2019-11-[address] 00:[facility]:00 [facility] Zoster Vaccine 2019-08-05 Completed [facility] Recombinant 00:00:00 [facility] Zoster Vaccine 2019-08-05 Completed [facility] Re[facility] 00:00:00 [facility] Zoster Vaccine 2019-08-05 Completed [facility] 00:00:00 [facility] Zoster Vaccine 2019-08-05 Completed [facility] 00:00:00 [facility] Zoster Vaccine 2019-08-05 Completed [facility] 00:00:00 [facility] Zoster Vaccine 2019-05-19 Completed [facility] 00:00:00 [facility] Zoster Vaccine 2019-05-19 Completed [facility] 00:00:00 [facility] Zoster Vaccine 2019-05-19 Completed [facility] 00:[facility]:00 [facility] Zoster Vaccine 2019-05-19 Completed [facility] 00:00:00 [facility] Zoster Vaccine 2019-05-19 Completed [facility] 00:[facility]:00 Hospital FLUZONE HIGH-DOSE 2019-01-[address] [facility] 00:00:00 Hospital FLUZONE HIGH-DOSE 2019-01-[address] [facility] 00:00:00 Hospital FLUZONE HIGH-DOSE 2019-01-[address] [facility] 00:00:00 Hospital FLUZONE HIGH-DOSE 2019-01-[address] PF 00:00:00 [facility] FLUZONE HIGH-DOSE 2019-01-[address] PF 00:00:00 [facility] FLUZONE HIGH-DOSE 2017-11-[address] PF 00:00:00 [facility] FLUZONE HIGH-DOSE 2017-11-[address] PF 00:00:00 [facility] FLUZONE HIGH-DOSE 2017-11-[address] PF 00:00:00 [facility] FLUZONE HIGH-DOSE 2017-11-[address] PF 00:00:00 [facility] FLUZONE HIGH-DOSE 2017-11-[address] PF 00:00:00 [facility] Influenza, High 2016-11-20 [facility] Dose Seasonal 00:00:00 (fluzone) Influenza, High 2016-11-20 Completed [facility] Dose Seasonal 00:00:00 (fluzone) Influenza, High 2016-11-20 Completed [facility] Dose Seasonal 00:00:00 (fluzone) FLUZONE HIGH-DOSE 2016-11-[address] [facility] 00:00:00 [facility] Pneumococcal 2016-11-20 Completed [facility] Conjugate 13-Valent 00:00:00 [facility] FLUZONE HIGH-DOSE 2016-11-[address] [facility] 00:00:00 Hospital Pneumococcal 2016-11-20 Completed [facility] Conjugate 13-[facility]ent 00:00:00 [facility] FLUZONE HIGH-DOSE 2016-11-[address] [facility] 00:00:00 Hospital Pneumococcal 2016-11-20 Completed [facility] Conjugate 13[facility] 00:00:00 [facility] FLUZONE HIGH-DOSE 2016-11-[address] PF 00:00:00 Hospital Pneumococcal 2016-11-20 Completed [facility] Conjugate 13[facility] 00:00:00 [facility] FLUZONE HIGH-DOSE 2016-11-[address] PF 00:00:00 Hospital Pneumococcal 2016-11-20 Completed [facility] Conjugate 13[facility]ent 00:00:00 [facility] FLUZONE HIGH-DOSE 2015-11-[address] PF 00:00:00 Hospital FLUZONE HIGH-DOSE 2015-11-[address] PF 00:00:00 Hospital FLUZONE HIGH-DOSE 2015-11-[address] PF 00:00:00 Hospital FLUZONE HIGH-DOSE 2015-11-[address] [facility] 00:00:00 Hospital FLUZONE HIGH-DOSE 2015-11-[address] [facility] 00:00:00 Hospital FLUZONE HIGH-DOSE Unknown Completed [facility] FLUZONE HIGH-DOSE Unknown Completed [facility] Pneumococcal Unknown Completed [facility] FLUZONE [facility]IGH-DOSE Unknown Completed [facility] FLUZONE HIGH-DOSE Unknown Completed [facility] Zoster Vaccine Unknown Completed [facility] Zoster Vacc[facility] Unknown Completed [facility] FLUCELVAX QUAD PF Unknown Completed [facility] PFIZER COVID-19 Unknown Completed [facility] PFIZER COVID-19 Unknown Completed [facility] PFIZER COVID-19 Unknown Completed [facility] FLUZONE HIGH-DOSE Unknown Completed [facility] FLUZONE HIGH-DOSE Unknown Completed [facility] Pneumococcal Unknown Completed [facility] FLUZONE HIGH-DOSE Unknown Completed [facility] FLUZONE HIGH-DOSE Unknown Completed [facility] Zoster Vaccine Unknown Completed [facility] Zoster Vacc[facility] Unknown Com[facility] FLUCELVAX QUAD PF Unknown Completed [facility] PFIZER COVID-19 Unknown Com[facility] P[facility] COVID[facility]19 Unknown Com[facility] P[facility] COVID-19 Unknown Com[facility] Influenza LAIV Unknown Com[facility] Pneumococcal Unknown Com[facility] P[facility] COVID[facility]19 Unknown Com[facility] FLUZONE HIGH-DOSE Unknown Completed [facility] Vital Signs Vital Name Observation Time Observation Value Comments Source Systolic blood 2022-05-16 17:00:00 131 mm[Hg] [facility] Diastolic blood 2022-05-16 17:00:00 70 mm[Hg] [facility] Heart rate 2022-05-16 17:00:00 50 /min [facility] [facility] Body temperature 2022-05-16 17:00:00 36.39 Alisha [facility] Respiratory rate 2022-05-16 17:00:00 12 /min [facility] Oxygen saturation in 2022-05-16 17:00:00 99 /min [facility] Arterial blood by [facility] kalia Pulse oximetry Branch Body weight 2022-05-16 09:02:00 84.959 kg [facility] BMI 2022-05-16 09:02:00 27.66 kg/m2 [facility] Body height 2022-05-15 20:59:00 175.3 cm [facility] Systolic blood 2022-05-09 03:00:00 166 mm[Hg] Univer [facility]ity of pressure [facility] Diastolic blood 2022-05-09 03:00:00 88 mm[Hg] Unive rsity of pressure [facility] Heart rate 2022-05-09 03:00:00 71 /min [facility] [place] [facility] Respiratory rate 2022-05-09 03:00:00 23 /min [facility] Oxygen saturation in 2022-05-09 03:00:00 98 /min [facility] Arterial blood by [facility] kalia Pulse oximetry Branch Body temperature 2022-05-08 23:30:00 36.61 Alisha [facility] Body height 2022-05-08 23:30:00 175.3 cm [facility] Body weight 2022-05-08 23:30:00 85.276 kg [facility] BMI 2022-05-08 23:30:00 27.76 kg/m2 [facility] Systolic blood 2023-01-17 17:48:00 138 mm[Hg] [facility] pressure Diastolic blood 2023-01-17 17:48:00 75 mm[facility]Hg[facility] Heart rate 2023-01-17 17:48:00 60 /min [facility] Respiratory rate 2023-01-17 17:48:00 18 /min [facility] Body height 2023-01-17 17:48:00 175.3 cm [facility] Oxygen saturation in 2023-01-17 17:48:00 99 /min [facility] Arterial blood by Pulse oximetry BMI 2021-02-22 16:52:00 36.92 kg/m2 [facility] Systolic blood 2021-02-22 16:52:00 119 mm[Hg] [facility] pressure Diastolic blood 2021-02-22 16:52:00 72 mm[Hg] [facility] pressure Heart rate 2021-02-22 16:52:00 67 /min [facility] Body temperature 2021-02-22 16:52:00 36.28 Alisha [facility] Body height 2021-02-22 16:52:00 175.3 cm [facility] Body weight 2021-02-22 16:52:00 113.399 kg [facility] Procedures Procedure Date / Time Performing Clinician Source Performed BASIC METABOLIC PANEL 2022-05-16 09:08:00 Elan Warner [facility] (NA, K, CL, CO2, Medical Branch GLUCOSE, BUN, CREATININE, CA) CBC WITH DIFF 2022-05-16 09:08:[address] [facility] MAGNESIUM 2022-05-16 09:08:[address] [facility] HEPATIC FUNCTION PANEL 2022-05-16 09:08:00 Elan Warner [facility] ([id number]) (ALB,T.PRO,BILI Medical Branch T,BU/BC,ALT,AST,ALK PHOS) CBC WITH DIFF 2022-05-15 21:26:[address] [facility] VITAMIN D, 25-OH 2022-05-15 21:26:00 Alana Elan [facility] PHOSPHORUS 2022-05-15 21:26:[address] [facility] VITAMIN B12, LEVEL 2022-05-15 21:26:00 Elan Warner [facility] FOLATE 2022-05-15 21:26:00 Elan Warner [facility] HB ECG ROUTINE & RHYTHM 2022-05-15 18:52:59 Lilian Rayo [facility] STRIP [facility] CT HEAD WO CONTRAST 2022-05-15 18:36:08 Lilian Rayo [facility] COMP. METABOLIC PANEL 2022-05-15 18:23:00 Lilian Rayo [facility] ([id number]) [facility] IRON PANEL 2022-05-15 18:23:[address] [facility] CBC WITH DIFF 2022-05-15 18:23:00 [facility] N-TERMINAL PRO-BNP 2022-05-15 18:23:00 Lilian Rayo [facility] FERRITIN SERUM 2022-05-15 18:23[facility] 2022-05-15 18:23:00 [facility] THYROID STIMULATING 2022-05-15 18:23:00 Alana [facility] HORMONE [facility] URINALYSIS 2022-05-09 00:19:00 Jackie Gutiérrez [facility] TROPONIN I 2022-05-09 00:10:00 Jackie Gutiérrez [facility] COMP. METABOLIC PANEL 2022-05-09 00:10:00 Jackie Gutiérrez [facility] ([id number]) [facility] CBC WITH DIFF 2022-05-09 00:10:00 Jackie Gutiérrez [facility] NOTICE OF PRIVACY 2022-05-08 23:07:55 Doctor Unassigned, No [facility] PRACTICES Name [facility] CONSENT/REFUSAL FOR 2022-05-08 23:04:49 Doctor Unassigned, No [facility] DIAGNOSIS AND TREATMENT Name Medical Branch MRI BRAIN WO CONTRAST 2020-12-13 20:26:17 Whitneykinjal Waylon [facility] Plan of Care Planned Activity Planned Date Details Comments Source Future Scheduled 2023-02-02 65+ PNEUMOCOCCAL [facility] Test 10:45:11 VACCINE (2 - PPSV23 or PCV20) [code = 65+ PNEUMOCOCCAL VACCINE (2 - PPSV23 or PCV20)] Future Scheduled 2023-02-02 COVID-19 VACCINE (5 - [facility] Test 10:45:11 season) [code = COVID-19 VACCINE ( - season)] Future Scheduled 2022-11-24 65+ PNEUMOCOCCAL [facility] Test 10:52:28 VACCINE (2 - PPSV23 or PCV20) [code = 65+ PNEUMOCOCCAL VACCINE (2 - PPSV23 or PCV20)] Future Scheduled 2022-11-24 COVID-19 VACCINE (4 - [facility] Test 10:52:28 Pfizer series) [code = COVID-19 VACCINE (4 - Pfizer series)] Future Scheduled 2022-11-24 INFLUENZA VACCINE (#1) [facility] Test 10:52:28 [code = INFLUENZA VACCINE (#1)] Future Scheduled 2022-08-23 65+ PNEUMOCOCCAL [facility] Test 09:02:58 VACCINE (2 - PPSV23 if available, else PCV20) [code = 65+ PNEUMOCOCCAL VACCINE (2 - PPSV23 if available, else PCV20)] Future Scheduled 2022-08-23 COVID-19 VACCINE (4 - [facility] Test 09:02:58 Pfizer series) [code = COVID-19 VACCINE (4 - Pfizer series)] Future Scheduled 2022-08-23 INFLUENZA VACCINE Method [facility] Test 09:02:58 [code = INFLUENZA VACCINE] Future Scheduled 2022-06-07 65+ PNEUMOCOCCAL [facility] Test 10:02:08 VACCINE (2 - PPSV23 if available, else PCV20) [code = 65+ PNEUMOCOCCAL VACCINE (2 - PPSV23 if available, else PCV20)] Future Scheduled 2022-06-07 COVID-19 VACCINE (4 - [facility] Test 10:02:08 Booster for Pfizer series) [code = COVID-19 VACCINE (4 - Booster for Pfizer series)] Future Scheduled 2022-06-07 INFLUENZA VACCINE [facility] Test 10:02:08 [code = INFLUENZA VACCINE] Future Scheduled 2022-06-07 65+ [facility] Test 10:02:08 VACCINE (2 - PPSV23 if available, else PCV20) [code = 65+ PNEUMOCOCCAL VACCINE (2 - PPSV23 if available, else PCV20)] Future Scheduled 2022-06-07 COVID-19 VACCINE (4 - [facility] Test 10:02:08 Booster for Pfizer series) [code = COVID-19 VACCINE (4 - Booster for Pfizer series)] Future Scheduled 2022-06-07 INFLUENZA VACCINE [facility] Test 10:02:08 [code = INFLUENZA VACCINE] Future Scheduled 2021-11-23 HEPATITIS B VACCINES Met [facility] Test 10:13:25 (1 of 3 - 3-dose series) [code = HEPATITIS B VACCINES (1 of 3 - 3-dose series)] Future Scheduled 2021-11-23 65+ [facility]OCCAL [facility] Test 10:13:25 VACCINE (2 - PPSV23 or PCV20) [code = 65+ PNEUMOCOCCAL VACCINE (2 - PPSV23 or PCV20)] Future Scheduled 2021-11-23 COVID-19 VACCINE (4 - [facility] Test 10:13:25 Booster for Pfizer series) [code = COVID-19 VACCINE (4 - Booster for Pfizer series)] Future Scheduled 2021-11-23 INFLUENZA VACCINE Method [facility] Test 10:13:25 [code = INFLUENZA VACCINE] Future Scheduled 2021-11-02 HEPATITIS B VACCINES Met [facility] Test 07:18:30 (1 of 3 - 3-dose series) [code = HEPATITIS B VACCINES (1 of 3 - 3-dose series)] Future Scheduled 2021-11-02 65+ [facility]OCCAL [facility] Test 07:18:30 VACCINE (2 - PPSV23 or PCV20) [code = 65+ PNEUMOCOCCAL VACCINE (2 - PPSV23 or PCV20)] Future Scheduled 2021-11-02 COVID-19 VACCINE (4 - Me [facility] Test 07:18:30 Booster for Pfizer series) [code = COVID-19 VACCINE (4 - Booster for Pfizer series)] Future Scheduled 2021-11-02 INFLUENZA VACCINE Method [facility] Test 07:18:30 [code = INFLUENZA VACCINE] Encounters Start End Encounter Admission Attending Care Care Encounter Source Date/Time Date/Time Type Type Clinicians Facility Department ID 2022-10-02 Outpatient [facility] [id number] [place] 10:28:44 [id number] [facility] 2022-09-19 Outpatient [facility] [id number] [place] 15:20:12 [id number] [facility] 2022-09-13 Outpatient [facility] [id number] [place] 07:03:06 [id number] [facility] 2022-09-07 Outpatient [facility] [id number] [place] 10:44:33 [id number] [facility] 2022-08-08 Outpatient [facility] [id number] [place] 13:26:33 [id number] [facility] 2022-08-04 Outpatient [facility] [id number] [place] 07:08:03 [id number] [facility] 2022-07-25 Outpatient [facility] [id number] [place] 10:12:59 [id number] [facility] 2022-07-17 Outpatient [facility] [id number] [place] 16:34:28 [id number] [facility] 2022-07-13 Outpatient [facility] [id number] [place] 09:13:27 [id number] [facility] 2022-07-10 Outpatient [facility] [id number] [place] 15:44:06 [id number] [facility] 2022-07-09 Outpatient [facility] [id number] [place] 14:49:08 [id number] [facility] 2022-07-04 Outpatient [facility] [id number] [place] 06:51:25 [id number] [facility] 2022-06-26 Outpatient [facility] [id number] [place] 08:14:13 [id number] [facility] 2022-06-23 Outpatient [facility] [id number] [place] 13:39:58 [id number] [facility] 2022-06-20 Outpatient [facility] [id number] [place] 07:59:41 [id number] [facility] 2022-06-09 Outpatient [facility] [id number] [place] 14:24:03 [id number] [facility] 2022-06-07 Outpatient [facility] [id number] [place] 09:05:31 [id number] [facility] 2022-06-05 Outpatient [facility] [id number] [place] 09:25:48 [id number] [facility] 2022-05-29 Outpatient [facility] [id number] [place] 09:21:30 [id number] [facility] 2022-05-22 Outpatient [facility] [id number] [place] 11:39:58 [id number] [facility] 2022-05-22 Outpatient [facility] [id number] [place] 09:08:45 [id number] [facility] 2022-05-19 Outpatient [facility] [id number] [place] 13:32:39 [id number] [facility] 2022-05-11 Outpatient [facility] [id number] [place] 13:48:36 [id number] [facility] 2022-05-10 Outpatient [facility] [id number] [place] 06:35:56 [id number] [facility] 2022-05-09 Outpatient [facility] [id number] [place] 11:02:16 [id number] [facility] 2022-04-18 Outpatient [facility] [id number] [place] 10:10:04 [id number] [facility] 2022-04-11 Outpatient [facility] [id number] [place] 08:11:22 [id number] [facility] 2022-04-04 Outpatient [facility] [id number] [place] 06:04:58 [id number] [facility] 2022-04-02 Outpatient [facility] [id number] [place] 16:45:57 [id number] [facility] 2022-03-26 Outpatient [facility] [id number] [place] 13:39:40 [id number] [facility] 2022-03-25 Outpatient [facility] [id number] [place] 18:42:02 [id number] [facility] 2022-03-20 Outpatient [facility] [id number] [place] 08:29:55 [id number] [facility] 2022-03-10 Outpatient [facility] [id number] [place] 03:28:19 [id number] [facility] 2022-03-09 Outpatient [facility] [id number] [place] 19:20:13 [id number] [facility] 2022-03-02 Outpatient [facility] [id number] [place] 08:23:48 [facility] 2022-02-13 Outpatient [facility]TH [facility] [id number] [place] 16:50:57 [id number] [facility] 2022-02-07 Outpatient [facility] [id number] [place] 11:21:45 [id number] [facility] 2022-02-06 Outpatient UTH UTH [id number] [place] 11:24:33 [id number] [facility] 2022-01-31 Outpatient [facility]TH [facility] [id number] [place] 16:23:57 [id number] [facility] 2022-01-17 Outpatient UTH U[facility] [id number] [place] 14:23:44 [id number] [facility] 2022-01-13 Outpatient [facility]TH U[facility] [id number] [place] 14:46:45 [id number] [facility] 2022-01-11 Outpatient UTH UTH [id number] [place] 11:03:50 [id number] [facility] 2021-12-27 Outpatient UTH UTH [id number] [place] 15:58:53 [id number] [facility] 2021-12-21 Outpatient UTH UTH [id number] [place] 11:58:59 [id number] [facility] 2021-12-20 Outpatient UTH UTH [id number] [place] 08:36:25 [id number] [facility] 2021-12-19 Outpatient UTH [place] [id number] UT 13:22:39 [id number] [facility] 2021-12-17 Outpatient UTH UTH [id number] [place] 08:53:28 [id number] [facility] 2021-11-29 Outpatient [id number] [place] [id number] [facility] 13:48:04 [facility] Jamila baldwin 2021-11-21 Outpatient UTH UTH [id number] [place] 13:14:36 [id number] [facility] 2021-11-17 Outpatient UTH UTH [id number] [place] 10:23:52 [id number] [facility] 2021-11-15 Outpatient UTH U[facility] [id number] [place] 13:54:54 [id number] [facility] 2021-10-27 Outpatient UTH UTH [id number] [place] 09:48:42 [id number] [facility] 2021-10-20 Outpatient UTH UTH [id number] UT 15:21:33 [id number] [facility] 2021-10-03 Outpatient UTH UTH [id number] [place] 15:01:24 [id number] [facility] 2021-09-29 Outpatient UTH UTH [id number] UT 12:59:22 [id number] [facility] 2021-09-21 Outpatient [place] [id number] UT 12:13:19 [id number] [facility] 2021-09-14 Outpatient HINCKS, [facility] [id number] [place] 02:49:49 RODOLFO [id number] [facility] 2021-09-13 Outpatient HINCKS, [facility] [id number] [place] 02:56:36 RODOLFO [id number] [facility] 2021-09-12 [facility] [id number] [place] 12:45:23 [id number] [facility] 2021-08-17 Outpatient HINCKS, [facility] [id number] [place] 11:01:52 RODOLFO [id number] [facility] 2021-07-26 Outpatient BROWN, [facility] [id number] UT 03:05:43 LARRY [id number] [facility] 2021-07-25 Outpatient [facility] [id number] [place] 17:05:20 [id number] [facility] 2021-06-24 Outpatient BROWN, [facility] [id number] [place] 03:11:14 LARRY [id number] [facility] 2021-06-23 Outpatient FISHER, [facility] [id number] UT 14:43:49 JEFF [id number] [facility] 2021-06-21 Outpatient BROWN, [facility] [id number] [place] 13:19:15 LARRY [id number] [facility] 2021-06-15 Outpatient BROWN, [facility] [id number] UT 03:09:41 LARRY [id number] [facility] 2021-06-14 Outpatient HINCKS, [facility] [id number] UT 14:55:01 RODOLFO [id number] [facility] 2021-06-09 Outpatient FISHER, [facility] [id number] UT 11:03:47 JEFF [id number] [facility] 2021-06-08 Outpatient HINCKS, [facility] [id number] UT 12:28:36 RODOLFO [id number] [facility] 2021-06-06 Outpatient BROWN, [facility] [id number] [place] 08:16:37 LARRY [id number] [facility] 2021-06-03 Outpatient [facility] [id number] [place] 17:05:09 [id number] [facility] 2021-06-02 Outpatient [facility] [id number] [place] 08:38:02 [id number] [facility] 2021-06-01 Outpatient HINCKS, [facility] [id number] [place] 10:48:35 RODOLFO [id number] [facility] 2021-05-30 Outpatient HINCVANCE, [facility] [id number] [place] 12:08:39 RODOLFO [id number] [facility] 2023-07-04 2023-07-04 [facility] [id number] [place] 11:00:00 11:00:00 [facility] 2023-04-20 2023-04-20 Outpatient ANDREA, [facility] [id number] [place] 11:00:00 11:00:00 [facility] 2023-01-31 2023-01-31 Orders Askandar, 1.2.840.1 [id number] Methodi 00:00:00 00:00:00 Only [facility] [id number] 3.430.2.7 Hospit a .3.392411 l .8 2023-01-17 2023-01-17 Office Askandar, 1.2.840.1 [id number] [id number] Methodi 11:30:00 12:14:44 Visit Same 20932.1.[address] 3.430.2.7 Hospit a .3.312779 l .8 2023-01-17 2023-01-17 Outpatient ASKANDAR, [facility] [id number] [place] 00:00:00 00:00:[address] SAME [address] 2022-11-02 2022-11-02 Telemedici Santhosh, [facility] [id number] 1.2.840.114 [id number] [place] 16:00:00 16:37:[address] 350.1.13.58 [facility] 9.2.7.2.686 [id number] 8 2022-10-03 2022-10-03 [facility] [id number] [place] 15:00:00 15:00:00 LARRY [facility] 2022-09-19 2022-09-19 Outpatient SANTHOSH [facility] [id number] [place] 13:00:00 13:00:00 LARRY [facility] 2022-07-04 2022-07-04 Telemedici SANTHOSH [facility] 1.2.840.114 [id number] [place] 10:30:00 10:30:00 ne LARRY LYN[place] 350.1.13.58 He [place]th [place] 9.2.7.2.686 MULTI [id number] SPECIALTY 5 2022-06-29 2022-06-29 Telemedici Ladarius [facility] 1.2.840.114 [id number] [place] 11:00:00 11:21:27 ne Rodolfo LYNNE 350.1.13.58 He [place]th [place] 9.2.7.2.686 MULTI [id number] SPECIALTY 3 2022-06-07 2022-06-07 Outpatient LADARIUS, [facility] [id number] [place] 09:15:00 09:24:08 RODOLFO [facility] 2022-05-31 2022-05-31 Patient Doctor [facility] 1.2.840.114 [id number] Univers 00:00:00 00:00:00 Secure Msg Unassigned, MULTISPEC 350.1.13.10 [place] [id number] [facility] [place] [id number] [facility] 2022-05-17 2022-05-17 Transition HEATH Lee 1.2.840.114 [id number] Univers 00:00:00 00:00:00 of Care Suki CEBALLOS 350.1.13.10 it [place] [id number] [facility] 403 Branch 2022-05-15 2022-05-16 Outpatient X ALANA [facility] LISA [id number] Univers 12:51:00 14:43:00 ELAN jones of [facility] 2022-05-15 2022-05-16 Emergency AufderheLilian neal [facility] 1.2.840.114 [id number] Univers 12:51:00 14:43:00 Elan Warner 350.1.13.10 ity of [place] 4.2.7.2.686 [facility] [id number] [place] [id number] Branch 2022-05-11 2022-05-11 Outpatient HINCKS, [facility] [id number] [place] 13:00:00 14:12:10 [facility] 2022-05-08 2022-05-08 Emergency Ibidrisunaileen, [facility] 1.2.840.114 [id number] Univers 17:31:00 21:31:00 Jackie [facility].10 [facility] 4.2.7.2.686 [facility] [id number] [place] [id number] Branch 2022-05-08 2022-05-08 Emergency X IBCELINE, [facility] ERT [id number] Univers 17:31:00 21:31:00 JACKIE jones [facility] 2022-04-18 2022-04-18 Outpatient CHIADIKA, [facility] [id number] [place] 11:40:00 11:47:04 [facility] 2022-04-18 2022-04-18 Outpatient HINCKS, [facility] [id number] [place] 10:30:00 10:44:28 [facility] 2022-03-21 2022-03-21 Outpatient SANTHOSH, [facility] [id number] [place] 15:30:00 15:49:23 [facility] 2022-03-16 2022-03-16 Outpatient FISHER, [facility] [id number] [place] 10:20:00 10:20:00 [facility] 2021-12-16 2022-02-08 Outpatient JESUS PEDERSEN, [facility] [id number] [facility] 00:00:00 00:00:00 ADMISSION ERIK 2022-01-13 2022-01-13 Outpatient CHIADIKA, [facility] [id number] [place] 09:00:00 10:08:14 [facility] 2021-12-30 2021-12-30 Outpatient HINCKS, [facility] [id number] [place] 13:30:00 14:57:22 [facility] 2021-12-27 2021-12-27 Outpatient SANTHOSH, [facility] [id number] [place] 08:15:00 08:15:00 [facility] 2021-11-30 2021-12-15 Inpatient 3 Slava, ENCPL BIN [id number] [facility] 18:18:00 11:25:00 Erik 0928 [facility] itation Jamila d 2021-11-15 2021-11-15 Outpatient BROWN, [facility] [id number] [place] 14:15:00 14:49:07 [facility] 2021-10-20 2021-10-20 Outpatient FISHER, [facility] [id number] [place] 15:40:00 15:40:00 [facility] 2021-10-11 2021-10-11 Outpatient HINCKS, [facility] [id number] [place] 11:00:00 11:13:44 [facility] 2021-07-23 2021-07-23 Refill Kei Shelton 1.2.840.1 [id number] Methodi 00:00:00 00:00:[address] 3.430.2.7 Hospit a .3.478167 l .8 2021-04-30 2021-04-30 Refill Kei Shelton 1.2.840.1 [id number] 21 [id number] Methodi 00:00:00 00:00:[address] 3.430.2.7 Hospit a .3.214508 l .8 2021-04-16 2021-04-16 Refill Kei Shelton 1.2.840.1 [id number] 21 [id number] Methodi 00:00:00 00:00:[address] 3.430.2.7 Hospit a .3.092317 l .8 2021-03-01 2021-03-01 Refill Dario 1.2.840.1 [id number] Methodi 00:00:00 00:00:[address] 3.430.2.7 Hospit a .3.476935 l .8 2021-03-01 2021-03-01 Telephone Kei Shelton 1.2.840.1 [id number] Methodi 00:00:00 00:00:[address] 3.430.2.7 Hospit a .3.330032 l .8 2021-02-22 2021-02-22 Office Waylon Clarke 1.2.840.1 [id number] 21 [id number] Methodi 10:50:00 11:24:[address] 3.430.2.7 Hospit a .3.643364 l .8 2021-02-22 2021-02-22 Travel 1.2.840.1 1.2.896.891 [id number] Methodi 00:00:00 00:00:[address] 3.430.2.7 0.2.7.3.698 Ho spita .3.350684 084.8 l .8 2021-02-14 2021-02-14 Office Waylon Clarke 1.2.840.1 [id number] Methodi 13:00:00 15:06:49 Visit Myla Barker 89663.1.[address] 3.430.2.7 Hospit a .3.549819 l .8 2021-02-14 2021-02-14 Travel 1.2.840.1 1.2.780.830 [id number] Methodi 00:00:00 00:00:[address] 3.430.2.7 0.2.7.3.698 Ho spita .3.088742 084.8 l .8 2021-01-08 2021-01-08 Kei Gann 1.2.840.1 [id number] 21 [id number] Methodi 00:00:00 00:00:[address] 3.430.2.7 Hospit a .3.154233 l .8 2020-12-25 2020-12-25 Refill Kei Shelton 1.2.840.1 [id number] [facility] 00:00:00 00:00:[address] 3.430.2.7 Hospit a .3.339590 l .8 2020-12-13 2020-12-13 [facility] Waylon Clarke 1.2.840.1 [id number] 2 [id number] [facility] 14:03:27 23:59:[address] 3.430.2.7 Hospit a .3.428580 l .8 2020-12-13 2020-12-13 Travel 1.2.840.1 1.2.351.690 1151 031391 [facility] 00:00:00 00:00:[address] 3.430.2.7 0.2.7.3.698 Ho spita .3.398139 084.8 l .8 2020-11-30 2020-11-30 Clinical 1.2.840.1 [id number] [facility] 11:50:00 12:24:[address] 3.430.2.7 Hospit a .3.252084 l .8 2020-11-19 2020-11-19 Travel 1.2.840.1 1.2.372.115 0990 247922 [facility] 00:00:00 00:00:[address] 3.430.2.7 0.2.7.3.698 Ho spita .3.344594 084.8 l .8 2020-11-17 2020-11-17 [facility] Waylon Clarke 1.2.840.1 [id number] [facility] 13:45:00 14:09:[address] 3.430.2.7 Hospit a .3.417535 l .8 2020-11-05 2020-11-05 Outpatient [facility] [id number] [address] [place] [address] 00:00:00 00:00:[address] 2020-05-31 2020-05-31 Outpatient [facility] [id number] [address] [place] 00:00:00 00:00:[address] 2020-04-30 2020-04-30 Outpatient CRISTOBAL, [facility] [id number] [place] 00:00:00 00:00:00 RASHAAD [address] 2020-04-09 2020-04-09 Outpatient [facility] [id number] [address] [place] 00:00:00 00:00:[address] 2020-02-18 2020-02-18 Outpatient KEI SHELTON [facility] [id number] [place] 00:00:00 00:00:[address] 2019-11-18 2019-11-18 Outpatient WAYLON CLARKE [facility] 960 [id number] [place] 00:00:00 00:00:00 904 Method i st 2019-10-23 2019-10-23 Outpatient [facility] [id number] [place] 00:00:00 00:00:[address] Results Test Description Test Time Test Comments Results Result Comments Source CBC with Differential 2022-05-16 11:24:00 Test Item Value Reference Range Interpretation Comme nts WBC (test code = 6690-2) 3.82 See_Comment L [A utomated message] The system which ge nerated this result transmit fernando reference range: 4.20 - 1 0.70 10*3/?L. The reference r marcus was not used to interpr et this result as normal/abnor mal. RBC (test code = 789-8) 3.34 See_Comment L [Au tomated message] The system which ge nerated this result transmit fernando reference range: 4.26 - 5 .52 10*6/?L. The reference r marcus was not used to interpr et this result as normal/abnor mal. HGB (test code = 718-7) 10.5 g/dL 12.2-16.4 L HCT (test code = 4544-3) 30.9 % 38.4-49.3 L MCV (test code = 787-2) 92.5 fL 81.7-95.6 MCH (test code = 785-6) 31.4 pg 26.1-32.7 MCHC (test code = 786-4) 34.0 g/dL 31.2-35.0 RDW-SD (test code = 49759-2) 43.8 fL 38.5-51.6 RDW-CV (test code = 788-0) 13.1 % 12.1-15.4 PLT (test code = 777-3) 186 See_Comment [Au tomated message] The system which ge nerated this result transmit fernando reference range: 150 - 32 8 10*3/?L. The reference range was not used to interpret th is result as normal/abnormal . MPV (test code = 41174-6) 10.8 fL 9.8-13.0 NRBC/100 WBC (test code = 0.0 See_Comment [ Automated message] The 8762175662) system which ge nerated this result transmit fernando reference range: 0.0 - 10 .0 /100 WBCs. The reference r marcus was not used to interpr et this result as normal/abnor mal. NRBC x10^3 (test code = See_Comment [Au tomated message] The 6771012624) system which ge nerated this result transmit fernando reference range: 10*3/?L. The reference range was not u sed to interpret this result as normal/abnormal . SEG % (test code = 07517-7) 40 % 33-76 LYMPH % (test code = 40 % 14-54 71495-6) MONO % (test code = 73747-2) 12 % 0-4 H EOS % (test code = 07714-5) 8 % 0-3 H ANC (test code = 753-4) 1.53 10*3/uL 1.99-6.95 L Lab Interpretation (test Abnormal code = 99400-0) [facility] (NA, K, CL, CO2, GLUCOSE, BUN, CREATININE, CA)2022-05-16 09:55:48 Test Item Value Reference Range Interpretation Comments NA (test code = 138 mmol/L 135-145 2079417782) K (test code = 3.4 mmol/L 3.5-5.0 L 3449027074) CL (test code = 106 mmol/L 98-108 6248308821) CO2 TOTAL (test code = 24 mmol/L 23-31 8829710295) AGAP (test code = 8 2-16 2618552302) BUN (test code = 31 mg/dL 7-23 H 5122336084) GLUCOSE (test code = 98 mg/dL 70-110 4809021766) CREATININE (test code = 2.42 mg/dL 0.60-1.25 H 8677821086) CALCIUM (test code = 9.0 mg/dL 8.6-10.6 2532286512) eGFR (test code = 25.5 mL/min/1.73m2 0336179917) JACQUES (test code = JACQUES) Association of Glomerular Filtration Rate (GFR) and Staging of Kidney Disease* + --+ --+ ------+| GFR (mL/min/1.73 m2) ?| With Kidney Damage ?| ?Without Kidney Damage+ --------+ --------+ +| ?>90 ?| ?Stage one ?| ? Normal ?+ ---+ ---+ -------+| ?60-89 ?| ?Stage two ?| ? Decreased GFR ? + --+ --+ ------+| ?30-59 ?| ?Stage three ?| ? Stage three ? + --+ --+ ------+| ?15-29 ?| ?Stage four ? | ? Stage four ?+ ---+ ---+ -------+| ?<15 (or dialysis) ? ?| ?Stage five ? | ? Stage five ?+ ---+ ---+ -------+ *Each stage assumes the associated GFR level has been in effect for at least three months. ?Stages 1 to 5, with or without kidney disease, indicate chronic kidney disease. Notes: Determination of stages one and two (with eGFR >59mL/min/1.73 m2) requires estimation of kidney damage for at least three months as defined by structural or functional abnormalities of the kidney, manifested by either:Pathological abnormalities or Markers of kidney damage (including abnormalities in the composition of the blood or urine or abnormalities in imaging tests). Lab Interpretation Abnormal (test code = 19125-4) [facility] [id number] 09:55:48 Test Item Value Reference Range Interpretation Comments MAGNESIUM (test code = 0155949806) 1.7 mg/dL 1.7-2.4 Lab Interpretation (test code = Normal 05161-5) [facility] (83855) (ALB,T.PRO,BILI T,BU/BC,ALT,AST,ALK PHOS)2022-05-16 09:55:48 Test Item Value Reference Range Interpretation Comments TOTAL BILI (test code = 1707631594) 0.7 mg/dL 0.1-1.1 BILI UNCON (test code = 3160602737) 0.3 mg/dL 0.1-1.1 BILI CONJ (test code = 3688843813) 0.0 mg/dL 0.0-0.3 T PROTEIN (test code = 9367604369) 6.6 g/dL 6.3-8.2 ALBUMIN (test code = 4248216245) 3.6 g/dL 3.5-5.0 ALK PHOS (test code = 9328796203) 67 U/L 34-122 ALTv (test code = 1742-6) 16 U/L 5-50 AST(SGOT) (test code = 9534638015) 24 U/L 13-40 Lab Interpretation (test code = Normal 91664-8) [facility]ERR[facility] [id number] 22:12:47 Test Item Value Reference Range Interpretation Comments FERRITIN (test code = 224.0 ng/mL 18.0-464.0 1635628253) JACQUES (test code = JACQUES) Biotin has been reported to cause a negative bias, interpret results relative to patient's use of biotin. Lab Interpretation (test Normal code = 42573-1) [facility] STIMULATING [id number] 22:08:44 Test Item Value Reference Range Interpretation Comments TSH (test code = 5.35 See_Comment H [Automated message] 3164922776) The system [employer] generated this result transmitted ref erence range: 0.45 - 4 .70 mIU/L. The refe rence range was not u sed to interpret this result as normal/abnor mal. Lab Interpretation (test Abnormal code = 21300-6) [facility] [id number] 21:43:21 Test Item Value Reference Range Interpretation Comments IRON (test code = 3326958276) 75 ug/dL 50-160 TIBC (test code = 0881377651) 247 ug/dL 250-410 L % FE SAT (test code = 7946773923) 30 % 20-50 Lab Interpretation (test code = Abnormal 38025-8) [facility] Paso[facility] [id number] 19:03:55 Test Item Value Reference Range Interpretation Comments TROPONIN I (test code = 0.021 ng/mL <=0.034 8853105991) JACQUES (test code = JACQUES) Reference (Normal) Range (defined by the 99th percentile reference limit): <= 0.034 ng/mL Note: Cardiac troponin begins to rise 3-4 hours after the onset of ischemia. Repeat in 4-6 hours if the sample was drawn within 3-4 hours of the onset of the symptom and found normal. Diagnosis of myocardial injury is made with acute changes in cTn concentrations with at least one serial sample above the 99th percentile upper reference limit (URL), taken together with the patient's clinical presentation. Biotin has been reported to cause a negative bias, interpret results relative to patient's use of biotin. Lab Interpretation Normal (test code = 39173-8) [facility] [id number] 19:00:33 Test Item Value Reference Range Interpretation Comments NT-proBNP (test code = 854 pg/mL <=450 H 1082507110) JACQUES (test code = JACQUES) Biotin has been reported to cause a negative bias, interpret results relative to patient's use of biotin. Lab Interpretation (test Abnormal code = 35290-7) [facility]. METABOLIC PANEL (22566)2022-05-15 18:52:10 Test Item Value Reference Range Interpretation Comments NA (test code = 138 mmol/L 135-145 1864998636) K (test code = 3.8 mmol/L 3.5-5.0 7274049530) CL (test code = 103 mmol/L 98-108 6677906337) CO2 TOTAL (test code = 25 mmol/L 23-31 3819601186) AGAP (test code = 10 2-16 0894983530) BUN (test code = 31 mg/dL 7-23 H 2890107317) GLUCOSE (test code = 145 mg/dL 70-110 H 1796608264) CREATININE (test code = 2.08 mg/dL 0.60-1.25 H 0851729776) TOTAL BILI (test code = 0.7 mg/dL 0.1-1.4 2548902835) CALCIUM (test code = 8.9 mg/dL 8.6-10.6 5822998811) T PROTEIN (test code = 7.0 g/dL 6.3-8.2 5336983285) ALBUMIN (test code = 4.0 g/dL 3.5-5.0 6630321404) ALK PHOS (test code = 73 U/L 34-122 8716670224) ALTv (test code = 17 U/L 5-50 1742-6) AST(SGOT) (test code = 24 U/L 13-40 7636382491) eGFR (test code = 30.4 mL/min/1.73m2 3404534880) JACQUES (test code = JACQUES) Association of Glomerular Filtration Rate (GFR) and Staging of Kidney Disease* + --+ --+ ------+| GFR (mL/min/1.73 m2) ?| With Kidney Damage ?| ?Without Kidney Damage+ --------+ --------+ +| ?>90 ?| ?Stage one ?| ? Normal ?+ ---+ ---+ -------+| ?60-89 ?| ?Stage two ?| ? Decreased GFR ? + --+ --+ ------+| ?30-59 ?| ?Stage three ?| ? Stage three ? + --+ --+ ------+| ?15-29 ?| ?Stage four ? | ? Stage four ?+ ---+ ---+ -------+| ?<15 (or dialysis) ? ?| ?Stage five ? | ? Stage five ?+ ---+ ---+ -------+ *Each stage assumes the associated GFR level has been in effect for at least three months. ?Stages 1 to 5, with or without kidney disease, indicate chronic kidney disease. Notes: Determination of stages one and two (with eGFR >59mL/min/1.73 m2) requires estimation of kidney damage for at least three months as defined by structural or functional abnormalities of the kidney, manifested by either:Pathological abnormalities or Markers of kidney damage (including abnormalities in the composition of the blood or urine or abnormalities in imaging tests). Lab Interpretation Abnormal (test code = 74484-5) [facility] WITH [id number] 18:39:30 Test Item Value Reference Range Interpretation Comments WBC (test code = 5.41 See_Comment [Automated 6690-2) message] The sy stem which generated this result transmitted reference range : 4.20 - 10.70 10*3/?L. The reference range was not used to interpret this result as normal/abnormal . RBC (test code = 3.46 See_Comment L [Automated 789-8) message] The sy stem which generated this result transmitted reference range : 4.26 - 5.52 10*6/?L. The reference range was not used to interpret this result as normal/abnormal . HGB (test code = 10.8 g/dL 12.2-16.4 L 718-7) HCT (test code = 32.6 % 38.4-49.3 L 4544-3) MCV (test code = 94.2 fL 81.7-95.6 787-2) MCH (test code = 31.2 pg 26.1-32.7 785-6) MCHC (test code = 33.1 g/dL 31.2-35.0 786-4) RDW-SD (test code = 45.0 fL 38.5-51.6 86934-9) RDW-CV (test code = 13.1 % 12.1-15.4 788-0) PLT (test code = 209 See_Comment [Automated 777-3) message] The sy stem which generated this result transmitted reference range : 150 - 328 10*3/ ?L. The reference r marcus was not used to interpret this result as normal/abnormal . MPV (test code = 10.3 fL 9.8-13.0 24901-0) NRBC/100 WBC (test 0.0 See_Comment [Automat ed code = 6824796297) message] The system which generated this result transmitted reference range : 0.0 - 10.0 /100 WBCs. The refer ence range was not u sed to interpret th is result as normal/abnormal . NRBC x10^3 (test code See_Comment [Auto mated = 8604430557) message] The s ystem which generated this result transmitted reference range : 10*3/?L. The reference range was not used to interpret this result as normal/abnormal . GRAN MAT (NEUT) % 66.1 % (test code = 770-8) IMM GRAN % (test code 0.20 % = 2934650608) LYMPH % (test code = 20.9 % 736-9) MONO % (test code = 8.5 % 5905-5) EOS % (test code = 3.0 % 713-8) BASO % (test code = 1.3 % 706-2) GRAN MAT x10^3(ANC) 3.58 10*3/uL 1.99-6.95 (test code = 5788418720) IMM GRAN x10^3 (test 0.00-0.06 code = 9196503005) LYMPH x10^3 (test code 1.13 10*3/uL 1.09-3.23 = 731-0) MONO x10^3 (test code 0.46 10*3/uL 0.36-1.02 = 742-7) EOS x10^3 (test code = 0.16 10*3/uL 0.06-0.53 711-2) BASO x10^3 (test code 0.07 10*3/uL 0.01-0.09 = 704-7) Lab Interpretation Abnormal (test code = 15834-6) [facility]"
--- NOTE | 2023-02-03 12:35 | RAD REPORT ---
EXAM DESCRIPTION: RAD - Chest Single View - 02/03/2023 12:23 pm CLINICAL HISTORY: COUGH Chest pain. COMPARISON: <Comparisons> FINDINGS: Portable technique limits examination quality. The lungs are grossly clear. The heart is mildly enlarged in size. Chondroid lesion is seen in the sh aft of the proximal right humerus.Aortic atherosclerosis. IMPRESSION: No acute intrathoracic process suspected.
[2023-02-03 12:39] LABS: SARS-CoV-2 Antigen Rapid Res Negative (Negative)
[2023-02-03] MEDS ORDERED: NA CHLORIDE 0.9% 500 ML ONE (12:39)
[2023-02-03] MEDS ORDERED: CEFTRIAXONE 1000 MG/VIAL ONE (12:39)
[2023-02-03] MEDS ORDERED: NA CHLORIDE 0.9% 1,000 ML ONE (12:39)
[2023-02-03 12:43] LABS: Absolute Lymphocytes (CBC) 1.1 K/uL (0.7-4.9); Lymphocytes % 17.2 % (15.3-44.8); MCV 93.3 fL (80-100); Platelets 257 thou/uL (152-406); RBC Red Blood Cell Count 3.43 M/uL (4.33-5.43)
[2023-02-03 12:50] LABS: Protime INR 1.05
[2023-02-03 13:03] LABS: Bilirubin Direct 0.2 mg/dL (0-0.2); Bilirubin Indirect, Calculated 0.3 mg/dL (0.2-0.8); Bilirubin Total 0.5 mg/dL (0.2-1.0); Magnesium 2.4 mg/dL (1.6-2.4); Potassium 3.7 mEq/L (3.5-5.1); Protein, Total 7.8 g/dL (6.4-8.2)
[2023-02-03 13:05] LABS: Troponin High Sensitivity 72.7 pg/mL (<58.9)
--- NOTE | 2023-02-03 13:16 | RAD REPORT ---
EXAM DESCRIPTION: CT - Head Brain Wo Cont - 02/03/2023 1:08 pm CLINICAL HISTORY: MENTAL STATUS CHANGE Headache, drowsiness COMPARISON: <Comparisons> TECHNIQUE: All CT scans are performed using dose optimization technique as appropriate and may inclu de automated exposure control or mA/KV adjustment according to patient size. FINDINGS: No intracranial hemorrhage, hydrocephalus or extra-axial fluid collection.Advanced general ized brain atrophy is present with advanced periventricular and deep white matter chronic microvascul ar ischemic changes.No areas of brain edema or evidence of midline shift. The paranasal sinuses and mastoids are clear. The calvarium is intact. Vertebral atherosclerosis. IMPRESSION: No acute intracranial abnormality. Advanced atrophy and chronic microvascular ischemic.
[2023-02-03 13:21] LABS: Specific Gravity 1.021 (1.005-1.030); Urine Bacteria None Seen /HPF (<20); Urine Bilirubin NEGATIVE (Negative); Urine Blood Trace (Negative); Urine Clarity Clear (Clear); Urine Color Light-Yellow (Yellow); Urine Glucose NEGATIVE (Negative); Urine Mucus Slight /HPF (None Seen); Urine Protein 2+ (Negative); Urine RBC 21-50 /HPF (None Seen); Urine Urobilinogen Normal (Normal); Urine pH 6.5 (5.0-7.0)
--- NOTE | 2023-02-03 13:57 | RAD REPORT ---
EXAM DESCRIPTION: CT - Stone Protocol - 02/03/2023 1:41 pm CLINICAL HISTORY: Flank pain. Flank pain;Fever COMPARISON: <Comparisons> TECHNIQUE: Axial images were obtained without oral or IV contrast. Lack of contrast limits solid org an and vascular assessment. The fkhar-ub-gykm spans the entirety of the system partially obscuring uppermost abdomen and lung bases. Coronal reformatted images were obtained and reviewed. All CT scans are performed using dose optimization technique as appropriate and may include automated exposure control or mA/KV adjustment according to patient size. FINDINGS: The lower lung conner are clear. The liver contains nonspecific 21 mm low-density lesion lateral right lobe. Additional 22 mm low-dens ity lesion inferior right lobe additional small subcentimeter lesions are present centrally and in th e left lobe. These are incompletely assessed on noncontrast CT.Cholelithiasis. The pancreas and adren al glands are normal. No pathologic lymphadenopathy in the abdomen or pelvis. Aortoiliac atherosclero sis. Small to moderate fat containing umbilical hernia. No urinary tract stones or obstructive uropathy. No bowel obstruction, free air, free fluid or abscess. The appendix is not identified as a discrete s tructure, however, no secondary findings of appendicitis are identified. Significant stool retention is present throughout the colon with a particularly notable amount of stool retained in the rectum. B ilateral fat containing inguinal hernias, slightly larger on the left. No significant bony abnormality. IMPRESSION: No urinary tract stones or obstructive uropathy. Cholelithiasis. There is a large amount of retained stool throughout the colon. Rectal fecal impaction also suspected .
--- NOTE | 2023-02-03 14:22 | ER ---
Nurse's Notes [facility] Name: Boubacar Holly Age: 87 yrs Sex: Male : 1935 Arrival Date: 02/03/2023 Time: 11:32 Bed 16 Private MD: Diagnosis: Altered mental status, unspecified;Acute kidney failure, unspecified;Anorexia;Dysuria;Abnormal levels of other serum enzymes-ELEVATED TROPONIN;Weakness Presentation: 02/03 11:45 Chief complaint: EMS states: pt has dementia and has gradually been getting worse over kc6 the past 2 weeks with weakness x1 day. BGl en route 162. Coronavirus screen: At this time, the client does not indicate any symptoms associated with coronavirus-19. Ebola Screen: No symptoms or risks identified at this time. Initial Sepsis Screen: Does the patient meet any 2 criteria? Altered Mental Status. Does the patient have a suspected source of infection? No. Patient's initial sepsis screen is negative. Risk Assessment: Do you want to hurt yourself or someone else? Patient reports no desire to harm self or others. Onset of symptoms was February 03, 2023. 11:45 Method Of Arrival: EMS: [facility] kc6 11:45 Acuity: MAURICE 3 kc6 Triage Assessment: 11:46 General: Appears in no apparent distress. comfortable, Behavior is calm, cooperative, kc6 appropriate for age. Pain: Unable to use pain scale. Patient is disoriented. FLACC scale score is 0 out of 10. EENT: No signs and/or symptoms were reported regarding the EENT system. Neuro: Level of Consciousness is awake, alert, obeys commands, Oriented to person, Appropriate for age. Cardiovascular: Capillary refill < 3 seconds. Respiratory: Airway is patent Trachea midline Respiratory effort is even, unlabored, Respiratory pattern is regular, symmetrical. GI: No signs and/or symptoms were reported involving the gastrointestinal system. : No signs and/or symptoms were reported regarding the genitourinary system. Derm: No signs and/or symptoms reported regarding the dermatologic system. Skin is intact, is healthy with good turgor, Skin is pink, warm \T\ dry. Musculoskeletal: No signs and/or symptoms reported regarding the musculoskeletal system. Circulation, motion, and sensation intact. Capillary refill < 3 seconds, Range of motion: intact in all extremities. Historical: - Allergies: 11:46 No Known Allergies; kc6 - PMHx: 11:46 Hypertensive disorder; Seizure; Cerebrovascular accident; Dementia; Alzheimer's disease;kc6 - PSHx: 11:46 None; kc6 - Immunization history:: Adult Immunizations up to date. - Social history:: Smoking status: Patient denies any tobacco usage or history of. Screenin:47 [facility] ED Fall Risk Assessment (Adult) History of falling in the last 3 months, kc6 including since admission No falls in past 3 months (0 pts) Confusion or Disorientation Yes (5 pts) Intoxicated or Sedated No (0 pts) Impaired Gait Yes (1 pt) Mobility Assist Device Used Yes (1 pt) Altered Elimination Yes (1 pt) Score/Fall Risk Level 3 or more points = High Risk. Abuse screen: Denies threats or abuse. Denies injuries from another. Nutritional screening: No deficits noted. Tuberculosis screening: No symptoms or risk factors identified. Assessment: 11:48 Reassessment: please see triage assessment. [facility] 12:48 Reassessment: Patient appears in no apparent distress at this time. No changes from kc6 previously documented assessment. Patient and/or family updated on plan of care and expected duration. Pain level reassessed. 13:48 Reassessment: Patient appears in no apparent distress at this time. No changes from kc6 previously documented assessment. Patient and/or family updated on plan of care and expected duration. Pain level reassessed. 14:48 Reassessment: Patient appears in no apparent distress at this time. No changes from kc6 previously documented assessment. Patient and/or family updated on plan of care and expected duration. Pain level reassessed. 15:48 Reassessment: Patient appears in no apparent distress at this time. No changes from kc6 previously documented assessment. Patient and/or family updated on plan of care and expected duration. Pain level reassessed. 19:10 General: Appears in no apparent distress. Behavior is calm, cooperative, appropriate la4 for age. 19:10 Neuro: Mccall Agitation-Sedation Scale (RASS): 0 - Alert and Calm Level of la4 Consciousness is confused, Oriented to person, [employer] are equal bilaterally. Respiratory: No deficits noted. Airway is patent Trachea midline Respiratory effort is even, unlabored, Respiratory pattern is regular, symmetrical, Breath sounds are coarse bilaterally. Vital Signs: 11:45 BP 149 / 92; Pulse 74; Resp 14 S; Temp 98.6(O); Pulse Ox 100% on R/A; Weight 83.91 kg kc6 (R); Height 5 ft. 9 in. (R); 13:28 BP 182 / 85; Pulse 61; Resp 16 S; Pulse Ox 99% on R/A; kc6 16:17 BP 161 / 101; Pulse 82; Resp 19 S; Pulse Ox 97% on R/A; kc6 19:10 BP 182 / 99; Pulse 87; Resp 20; Pulse Ox 93% ; la4 20:00 BP 191 / 101; Pulse 82; Resp 20; Pulse Ox 94% ; la4 21:00 BP 167 / 99; Pulse 75; Resp 20; Temp 97.8; Pulse Ox 93% on R/A; Pain 0/10; la4 11:45 Body Mass Index 27.32 (83.91 kg, 175.26 cm) kc6 21:00 Pain Scale: Adult la4 Vitals: 21:00 Cardiac Rhythm Assessment. la4 [place] Coma Score: 21:00 Eye Response: spontaneous(4). Motor Response: obeys commands(6). Verbal Response: la4 confused(4). Total: 14. ED Course: 11:44 Patient arrived in ED. kc6 11:46 Triage completed. kc6 11:46 Arm band placed on. kc6 11:47 Patient maintains SpO2 saturation greater than 95% on room air. kc6 11:48 Patient has correct armband on for positive identification. Placed in gown. Bed in low kc6 position. Call light in reach. Side rails up X2. Adult w/ patient. Client placed on continuous cardiac and pulse oximetry monitoring. NIBP monitoring applied. residential monitor on. 11:51 Wilner Bartlett MD is Attending Physician. bang 11:52 Paula Arango, JASMYNE is Primary Nurse. kc6 12:21 Missed attempt(s): 20 gauge in left forearm. Missed attempt(s): 20 gauge in right kc6 antecubital area. 12:24 XRAY Chest (1 view) In Process Unspecified. EDMS 13:10 CT Head Brain wo Cont In Process Unspecified. EDMS 13:43 CT Stone Protocol In Process Unspecified. EDMS 14:20 Chana Hope MD is Hospitalizing Provider. bang 19:17 Primary Nurse role handed off by Paula Arango RN la4 19:17 Raf Bowling, JASMYNE is Primary Nurse. la4 20:00 No provider procedures requiring assistance completed. Inserted saline lock: 20 gauge la4 in right forearm, using aseptic technique. Patient admitted, IV remains in place. intact. 21:00 Provided Education on: Plan of care discussed with patients spouse and daughter who are la4 present at bedside. Administered Medications: 12:54 Drug: NS 0.9% IV 500 ml IV at bolus once Route: IV; Rate: bolus; Site: right kc6 antecubital; 12:54 Drug: NS 0.9% IV 1000 ml IV at 125 ml/hr continuous Route: IV; Rate: 125 ml/hr; Site: kc6 right antecubital; 12:54 Drug: Rocephin IV 1 grams IV at per protocol once; Given slow IV push per pharmacy kc6 instructions Route: IV; Rate: per protocol; Site: right antecubital; 13:47 Not Given (already infusingg): ns 0.9% 1000 ml IV at 125 ml/hr continuous kc6 15:39 Drug: Aspirin PO Chewable Tablet 162 mg PO once Route: PO; kc6 16:18 Follow up: Response: No adverse reaction kc6 15:39 Drug: Famotidine IVP 20 mg IVP once; dilute with 10 mL 0.9% NaCl; give over 2 minutes kc6 Route: IVP; Site: right antecubital; 16:18 Follow up: Response: No adverse reaction kc6 Medication: 21:00 VIS not applicable for this client. la4 Outcome: 14:22 Decision to Hospitalize by Provider. [facility] 20:00 Admitted to Tele accompanied by tech, via stretcher, on monitor, with chart, Report la4 called to Jesus MEDLEY 20:00 Condition: stable 20:00 Instructed on the need for admit, 22:10 Patient left the ED. la4 Signatures: Dispatcher [employer] EDWilner Santos MD MD cha Campbell, Kaitlyn, RN RN kc6 Raf Bowling RN RN laNohemi Corrections: (The following items were deleted from the chart) 16:16 12:48 Reassessment: Patient appears in no apparent distress at this time. No changes kc6 from previously documented assessment. Patient and/or family updated on plan of care and expected duration. Pain level reassessed. Patient is alert, oriented x 3, equal unlabored respirations, skin warm/dry/pink. kc6
--- NOTE | 2023-02-03 14:22 | EDPHYS ---
Physician Documentation [facility] Name: Boubacar Holly Age: 87 yrs Sex: Male : 1935 Arrival Date: 02/03/2023 Time: 11:32 Bed 16 Private MD: ED Physician Wilner Bartlett HPI: 02/03 14:16 This 87 yrs old Black Male presents to ER via EMS with complaints of Altered Mental bang Status, General Weakness. 14:16 The patient presents with confusion, decreased mental status. Onset: The bang symptoms/episode began/occurred 2 day(s) ago. Possible causes: CVA or TIA, head injury, low blood sugar, sepsis. Associated signs and symptoms: Pertinent positives: confusion, dizziness, weakness. Current symptoms: In the emergency department the patient's symptoms are unchanged from the initial presentation. Historical: - Allergies: 11:46 No Known Allergies; kc6 - PMHx: 11:46 Hypertensive disorder; Seizure; Cerebrovascular accident; Dementia; Alzheimer's disease;kc6 - PSHx: 11:46 None; kc6 - Immunization history:: Adult Immunizations up to date. - Social history:: Smoking status: Patient denies any tobacco usage or history of. ROS: 14:17 Constitutional: Negative for fever, chills, and weight loss, Eyes: Negative for injury, bang pain, redness, and discharge, ENT: Negative for injury, pain, and discharge, Neck: Negative for injury, pain, and swelling, Cardiovascular: Negative for chest pain, palpitations, and edema, Respiratory: Negative for shortness of breath, cough, wheezing, and pleuritic chest pain, Abdomen/GI: Negative for abdominal pain, nausea, vomiting, diarrhea, and constipation, Back: Negative for injury and pain, : Negative for injury, bleeding, discharge, and swelling, MS/Extremity: Negative for injury and deformity, Skin: Negative for injury, rash, and discoloration, Psych: Negative for depression, anxiety, suicide ideation, homicidal ideation, and hallucinations, Allergy/Immunology: Negative for hives, rash, and allergies, Endocrine: Negative for neck swelling, polydipsia, polyuria, polyphagia, and marked weight changes, 14:17 Neuro: Positive for altered mental status, weakness, Exam: 14:17 Constitutional: This is a well developed, well nourished patient who is awake, alert, bang and in no acute distress. Head/Face: Normocephalic, atraumatic. Eyes: Pupils equal round and reactive to light, extra-ocular motions intact. Lids and lashes normal. Conjunctiva and sclera are non-icteric and not injected. Cornea within normal limits. Periorbital areas with no swelling, redness, or edema. ENT: Nares patent. No nasal discharge, no septal abnormalities noted. Tympanic membranes are normal and external auditory canals are clear. Oropharynx with no redness, swelling, or masses, exudates, or evidence of obstruction, uvula midline. Mucous membranes moist. Neck: Trachea midline, no thyromegaly or masses palpated, and no cervical lymphadenopathy. Supple, full range of motion without nuchal rigidity, or vertebral point tenderness. No Meningismus. Chest/axilla: Normal chest wall appearance and motion. Nontender with no deformity. No lesions are appreciated. Cardiovascular: Regular rate and rhythm with a normal S1 and S2. No gallops, murmurs, or rubs. Normal PMI, no JVD. No pulse deficits. Respiratory: Lungs have equal breath sounds bilaterally, clear to auscultation and percussion. No rales, rhonchi or wheezes noted. No increased work of breathing, no retractions or nasal flaring. Abdomen/GI: Soft, non-tender, with normal bowel sounds. No distension or tympany. No guarding or rebound. No evidence of tenderness throughout. Back: No spinal tenderness. No costovertebral tenderness. Full range of motion. Skin: Warm, dry with normal turgor. Normal color with no rashes, no lesions, and no evidence of cellulitis. MS/ Extremity: Pulses equal, no cyanosis. Neurovascular intact. Full, normal range of motion. Neuro: Awake and alert, GCS 15, oriented to person, place, time, and situation. Cranial nerves II-XII grossly intact. Motor strength 5/5 in all extremities. Sensory grossly intact. Cerebellar exam normal. Normal gait. Psych: Awake, alert, with orientation to person, place and time. Behavior, mood, and affect are within normal limits. 14:17 Neck: ROM/movement: is normal, no acute changes, Lymph nodes: no appreciated lymphadenopathy, 14:17 ECG was reviewed by the Attending Physician. Vital Signs: 11:45 BP 149 / 92; Pulse 74; Resp 14 S; Temp 98.6(O); Pulse Ox 100% on R/A; Weight 83.91 kg kc6 (R); Height 5 ft. 9 in. (R); 13:28 BP 182 / 85; Pulse 61; Resp 16 S; Pulse Ox 99% on R/A; kc6 16:17 BP 161 / 101; Pulse 82; Resp 19 S; Pulse Ox 97% on R/A; kc6 19:10 BP 182 / 99; Pulse 87; Resp 20; Pulse Ox 93% ; la4 20:00 BP 191 / 101; Pulse 82; Resp 20; Pulse Ox 94% ; la4 21:00 BP 167 / 99; Pulse 75; Resp 20; Temp 97.8; Pulse Ox 93% on R/A; Pain 0/10; la4 11:45 Body Mass Index 27.32 (83.91 kg, 175.26 cm) kc6 21:00 Pain Scale: Adult la4 Edson Coma Score: 21:00 Eye Response: spontaneous(4). Motor Response: obeys commands(6). Verbal Response: la4 confused(4). Total: 14. MDM: 11:52 Patient medically screened. [facility] 02/03 11:51 Order name: Basic Metabolic Panel [facility] 02/03 11:51 Order name: CBC with Diff; Complete Time: 13:10 [facility] 02/03 11:51 Order name: LFT's [facility] 02/03 11:51 Order name: Magnesium [facility] 02/03 11:51 Order name: NT PRO-BNP [facility] 02/03 11:51 Order name: PT-INR; Complete Time: 13:10 [facility] 02/03 11:51 Order name: Troponin HS [facility] 02/03 11:51 Order name: Urinalysis w/ reflexes; Complete Time: 14:11 [facility] 02/03 11:51 Order name: Blood Culture Adult (2) [facility] 02/03 11:51 Order name: Lactate w/ 2H reflex if indic.; Complete Time: 13:10 [facility] 02/03 11:51 Order name: SARS RAPID; Complete Time: 13:10 [facility] 02/03 11:51 Order name: Flu; Complete Time: 13:10 [facility] 02/03 15:20 Order name: Basic Metabolic Panel [facility] 02/03 15:20 Order name: Basic Metabolic Panel [facility] 02/03 15:20 Order name: Basic Metabolic Panel [facility] 02/03 15:20 Order name: Basic Metabolic Panel [facility] 02/03 15:20 Order name: CBC with Automated Diff [facility] 02/03 15:20 Order name: CBC with Automated Diff [facility] 02/03 15:20 Order name: CBC with Automated Diff [facility] 02/03 15:20 Order name: CBC with Automated Diff [facility] 02/03 15:20 Order name: Creatine Phosphokinase [facility] 02/03 15:20 Order name: Creatine Phosphokinase EDMS 02/03 15:20 Order name: Creatine Phosphokinase EDMS 02/03 15:20 Order name: Creatine Phosphokinase EDMS 02/03 15:20 Order name: Magnesium EDMS 02/03 15:20 Order name: Magnesium EDMS 02/03 15:20 Order name: Magnesium EDMS 02/03 15:20 Order name: Magnesium [facility]MS 02/03 16:07 Order name: Creatine Phosphokinase [facility] 02/03 11:51 Order name: XRAY Chest (1 view); Complete Time: 13:10 [facility] 02/03 11:51 Order name: CT Head Brain wo Cont; Complete Time: 14:11 [facility] 02/03 13:11 Order name: CT Stone Protocol; Complete Time: 14:11 [facility] 02/03 20:42 Order name: US [facility] 02/03 11:51 Order name: EKG; Complete Time: 11:51 [facility] 02/03 15:20 Order name: Physical Therapy Consult [facility] 02/03 11:51 Order name: Cardiac monitoring; Complete Time: 11:53 [facility] 02/03 11:51 Order name: EKG - Nurse/Tech; Complete Time: 12:12 [facility] 02/03 11:51 Order name: IV Saline Lock; Complete Time: 12:54 [facility] 02/03 11:51 Order name: Labs collected and sent; Complete Time: 12:54 [facility] 02/03 11:51 Order name: O2 Per Protocol; Complete Time: 11:52 [facility] 02/03 11:51 Order name: O2 Sat Monitoring; Complete Time: 11:52 [facility] EC:17 Rate is 68 beats/min. Rhythm is regular. QRS [place] is Normal. [place] interval is normal. QRS bang interval is normal. No Q waves. T waves are Normal. No ST changes noted. Clinical impression: Abnormal EKG without significant change. Interpreted by me. Reviewed by me. Administered Medications: 12:54 Drug: NS 0.9% IV 500 ml IV at bolus once Route: IV; Rate: bolus; Site: right kc6 antecubital; 12:54 Drug: NS 0.9% IV 1000 ml IV at 125 ml/hr continuous Route: IV; Rate: 125 ml/hr; Site: kc6 right antecubital; 12:54 Drug: Rocephin IV 1 grams IV at per protocol once; Given slow IV push per pharmacy kc6 instructions Route: IV; Rate: per protocol; Site: right antecubital; 13:47 Not Given (already infusingg): ns 0.9% 1000 ml IV at 125 ml/hr continuous kc6 15:39 Drug: Aspirin PO Chewable Tablet 162 mg PO once Route: PO; kc6 16:18 Follow up: Response: No adverse reaction kc6 15:39 Drug: Famotidine IVP 20 mg IVP once; dilute with 10 mL 0.9% NaCl; give over 2 minutes kc6 Route: IVP; Site: right antecubital; 16:18 Follow up: Response: No adverse reaction kc6 Disposition Summary: 02/03/23 14:22 Hospitalization Ordered Notes: Hospitalization Status: Inpatient Admission bang Provider: Chana Hope cha Condition: Stable bang Problem: new bang Symptoms: have improved bang Bed/Room Type: Standard bang Location: Telemetry/MedSurg (Inpatient)(02/03/23 20:23) Room Assignment: 211(02/03/23 20:38) as6 Diagnosis - Altered mental status, unspecified bang - Acute kidney failure, unspecified bang - Anorexia bang - Dysuria bang - Abnormal levels of other serum enzymes - ELEVATED TROPONIN bang - Weakness bang Forms: - Medication Reconciliation Form bang - SBAR form bang - Leadership Thank You Letter bang Signatures: Dispatcher [employer] Angelina Null RN RN kl Anderson, Corey, MD MD cha Botello, Elizabeth eb Slawson, Ashby, RN RN as6 Paula Arango RN RN kc6 Corrections: (The following items were deleted from the chart) 16:51 14:22 Telemetry/MedSurg (Inpatient) [facility] eb 16:51 14:22 bang eb 20:23 16:51 [facility] ER HOLD eb kl 20:23 16:51 ERHOLD- eb kl 20:38 20:23 kl as6
--- NOTE | 2023-02-03 14:57 | P.HP ---
Certification for Inpatient Patient admitted to: Inpatient With expected LOS: <2 Midnights Patient will require the following post-hospital care: None Practitioner: I am a practitioner with admitting privileges, knowledge of patient current condition, hospital course, and medical plan of care. Services: Services provided to patient in accordance with Admission requirements found in Title 42 Section 412.3 of the Code of Federal Regulations Patient History Date of Service: 02/03/23 Reason for admission: acute renal failure History of Present Illness: 89 yo AA male PMHX HTN, HLD, CKD, CVA, sezure disorder, Dementia; Alzheimer's disease; from home presents to ER with altered mental status. is a bedside reports fever yesterday, mild confusion, generalized weaknes x 2 days. No reported chest pain, NVD, shortness of breath or edema. Plan to admit for metabolic encephalopahty secondary to acute renal failure, elevated troponin, elevated BNP. Lab evaluation troponin 72.7, BNP 1041, BUN 32, cr 2.02, UA unremarkable, CBC microcytic anemia, BP 149 / 92; Pulse 74; Resp 14 S; Temp 98.6(O); Pulse Ox 100% on R/A; EKG s 68 beats/min. Rhythm is regular. QRS [place] is Normal. [place] interval is normal. QRS interval is normal. No Q waves. T waves are Normal. No ST changes noted. Clinical impression: Abnormal EKG without significant change CT abd IMPRESSION: No urinary tract stones or obstructive uropathy. Cholelithiasis. There is a large amount of retained stool throughout the colon. Rectal fecal impaction also suspected. CXR IMPRESSION: No acute int rathoracic process suspected.Head CT MPRESSION: No acute intracranial abnormality. Advanced atrophy and chronic microvascular ischemic - Past Medical/Surgical History -: HTN -: HLD -: CVA -: seziure disorder -: appy Psychosocial/ Personal History: lives wth family - Social History Alcohol use: No CD- Drugs: No Caffeine use: No Place of Residence: Home Review of Systems per O Physical Examination - Physical Exam General: Alert, In no apparent distress, Oriented x1 HEENT: Atraumatic, Normocephalic Neck: Supple, 2+ carotid pulse no bruit Respiratory: Normal air movement, Diminished Cardiovascular: Normal pulses, Regular rate/rhythm Capillary refill: <2 Seconds Gastrointestinal: Normal bowel sounds, Soft and benign Musculoskeletal: No clubbing, No swelling Neurological: Normal speech, Other (confused) - Studies Laboratory Data (last 24 hrs) 02/03/23 02/03/23 02/03/23 12:35 12:35 12:35 WBC 6.20 Hgb 10.8 L Hct 32.0 L Plt Count 257 PT 11.5 INR 1.05 Sodium 141 Potassium 3.7 BUN 32 H Creatinine 2.02 H Glucose 111 H Magnesium 2.4 Total Bilirubin 0.5 AST 19 ALT 24 Alkaline Phosphatase 86 Microbiology Data (last 24 hrs): 02/03/23 12:20 Nasopharnyx Influenza Type A Antigen Screen - Final 02/03/23 12:20 Nasopharnyx Influenza Type B Antigen Screen - Final Assessment and Plan - Plan Assessment plan Metabolic encephalopathy likely from acute renal failure CT abd IMPRESSION: No urinary tract stones or obstructive uropathy. Cholelithiasis. There is a large amount of retained stool throughout the colon. Rectal fecal impaction also suspected. CXR IMPRESSION: No acute intrathoracic process suspected.Head CT MPRESSION: No acute intracranial abnormality. Advanced atrophy and chronic microvascular ischemic Renal US ordered, UA acute renal failure CKDunkn baseline gentle IVF, neph consult, trend kidney function BUN 32, cr 2.02, UA unremarkable, elevated troponin elevated BNP trend tropon, tele troponin 72.7, BNP 1041, BP 149 / 92; Pulse 74; Resp 14 S; Temp 98.6(O); Pulse Ox 100% on R/A; EKG s 68 beats/min. Rhythm is regular. QRS [place] is Normal. [place] interval is normal. QRS interval is normal. No Q waves. T waves are Normal. No ST changes noted. Normocytic anemia 10.8, 32 Trend H&H essential HTN HLD CKD CVA sezure disorder Dementia Alzheimer's resume approp home meds PT eval to encourage ambulation Full code DVT heparin Diet cardiac , Discharge Plan: Home Plan to discharge in: 48 Hours - Advance Directives Does patient have a Living Will: No Does patient have a Durable POA for Healthcare: No - Code Status/Comfort Care Code Status: Full Code Physician Review: Patient Assessed, Agree with Above Assessment and Plan Critical Care: No Time Spent Managing Pts Care (In Minutes): 55
[2023-02-03] MEDS ORDERED: ASPIRIN 81 MG CHEWABLE TABLET ONE (15:45)
[2023-02-03] MEDS ORDERED: FAMOTIDINE 20 MG/2 ML VIAL IV ONE (15:45)
[2023-02-03] MEDS ORDERED: SENOSIDES 8.6 MG TAB PO PRN (17:33)
[2023-02-03] MEDS ORDERED: POLYETHYL GLY 3350 17 GM/DOSE PO PRN (17:33)
[2023-02-03] MEDS ORDERED: NA CHLORIDE 0.9% 1,000 ML IV SCH (17:33)
[2023-02-03] MEDS ORDERED: ACETAMINOPHEN 500 MG TAB PO PRN (17:33)
[2023-02-03] MEDS ORDERED: ONDANSETRON 4 MG/2 ML VIAL IV PRN (17:33)
[2023-02-03] MEDS: HEPARIN 5000 UNIT/ML 1 ML VIAL SQ SCH (17:33)
--- NOTE | 2023-02-03 20:42 | RAD REPORT ---
EXAM DESCRIPTION: US - Renal Ultrasound-Complete - 02/03/2023 8:32 pm CLINICAL HISTORY: acute renal failure Flank pain COMPARISON: Stone Protocol dated 02/03/2023 FINDINGS: Both kidneys are mildly echogenic. The right kidney measures 10.3 x 6.5 x 4.8 cm. No hydronephrosis, focal mass or perinephric fluid. The left kidney measures 9.9 x 5.6 x 4.9 cm. No hydronephrosis, focal mass or perinephric fluid. The urinary bladder is incompletely distended without gross abnormality seen. IMPRESSION: Mildly echogenic kidneys suggests underlying medical renal disease.
[2023-02-03] MEDS: ATORVASTATIN 10 MG TAB PO SCH (23:13)
[2023-02-03] MEDS: OXcarbazepine 150 MG TAB PO SCH (23:13)
[2023-02-03] MEDS: HYDRALAZINE HCL 25 MG TABLET PO SCH (23:13)
[2023-02-04] MEDS: HEPARIN 5000 UNIT/ML 1 ML VIAL SQ SCH ×3 (01:00→17:14)
[2023-02-04 03:31] LABS: Hematocrit 30.7 % (39.6-49.0); Lymphocytes % 16.7 % (15.3-44.8); MCV 93.5 fL (80-100); MPV 8.3 fL (7.6-11.3); Platelets 284 thou/uL (152-406); RBC Red Blood Cell Count 3.29 M/uL (4.33-5.43)
[2023-02-04 03:49] LABS: Magnesium 2.1 mg/dL (1.6-2.4); Potassium 3.9 mEq/L (3.5-5.1)
[2023-02-04] MEDS ORDERED: HYDRALAZINE HCL 20 MG/ML VIAL IV PRN (07:04)
--- NOTE | 2023-02-04 07:07 | P.PN ---
Subjective Date of Service: 02/04/23 Chief Complaint: acute renal failure Subjective: No C/O voiced Poor appetite this a.m., awake and alert, afebrile - Physical Exam General: Alert, In no apparent distress, Oriented x1 HEENT: Atraumatic, Normocephalic Neck: Supple, 2+ carotid pulse no bruit Respiratory: Normal air movement, Diminished Cardiovascular: Normal pulses, Regular rate/rhythm Capillary refill: <2 Seconds Gastrointestinal: Normal bowel sounds, Soft and benign Musculoskeletal: No clubbing, No swelling Neurological: Normal speech, Other (confused) Review of Systems PER HPI Physical Examination - Vital Signs Temperature: 99.3 F Blood Pressure: 197/91 Pulse: 80 Respirations: 18 Pulse Ox (%): 93 - Studies Laboratory Data (last 24 hrs) 02/03/23 02/03/23 02/03/23 12:35 12:35 12:35 WBC 6.20 Hgb 10.8 L Hct 32.0 L Plt Count 257 PT 11.5 INR 1.05 Sodium 141 Potassium 3.7 BUN 32 H Creatinine 2.02 H Glucose 111 H Magnesium 2.4 Total Bilirubin 0.5 AST 19 ALT 24 Alkaline Phosphatase 86 Microbiology Data (last 24 hrs): 02/03/23 12:20 Nasopharnyx Influenza Type A Antigen Screen - Final 02/03/23 12:20 Nasopharnyx Influenza Type B Antigen Screen - Final Assessment And Plan - Plan Assessment plan Metabolic encephalopathy likely from acute renal failure history of dementia, unknown baseline orientation CT abd IMPRESSION: No urinary tract stones or obstructive uropathy. Cholelithiasis. There is a large amount of retained stool throughout the colon. Rectal fecal impaction also suspected. CXR IMPRESSION: No acute intrathoracic process suspected.Head CT MPRESSION: No acute intracranial abnormality. Advanced atrophy and chronic microvascular ischemic Renal US ordered, IMPRESSION: Mildly echogenic kidneys suggests underlying medical renal disease UA no leukoesterase acute renal failure CKDunkn baseline gentle IVF, neph consult, trend kidney function BUN 32, cr 2.02, UA unremarkable, elevated troponin elevated BNP Echo ordered for the a.m. Lasix HTN urgency prn antihypertensives, renal US ECHO ordered Thursday 02/08 trend tropon, tele troponin 72.7, BNP 1041, BP 149 / 92; Pulse 74; Resp 14 S; Temp 98.6(O); Pulse Ox 100% on R/A; EKG s 68 beats/min. Rhythm is regular. QRS [place] is Normal. [place] interval is normal. QRS interval is normal. No Q waves. T waves are Normal. No ST changes noted. Normocytic anemia 10.8, 32 Trend H&H essential HTN HLD CKD CVA sezure disorder Dementia Alzheimer's resume approp home meds PT eval to encourage ambulation Full code DVT heparin Diet cardiac , Discharge Plan: Home - Code Status/Comfort Care Code Status Assessed: Yes Code Status: Full Code Physician Review: Patient Assessed, Agree with Above Assessment and Plan Critical Care: No Time Spent Managing PTS Care (In Minutes): 35
--- NOTE | 2023-02-04 08:01 | P.CNS ---
Date of Consult: 02/04/23 Reason for Consult: KILO/ CKD Requesting Physician: Chana Hope Chief Complaint: KILO History of Present Illness: 89 yo AA male PMHX HTN, HLD, CKD, CVA, sezure disorder, Dementia; Alzheimer's disease; from home presents to ER with altered mental status. is a bedside reports fever yesterday, mild confusion, generalized weaknes x 2 days. No reported chest pain, NVD, shortness of breath or edema. Plan to admit for metabolic encephalopahty secondary to acute renal failure, elevated troponin, elevated BNP. Lab evaluation troponin 72.7, BNP 1041, BUN 32, cr 2.02, UA unremarkable, CBC microcytic anemia, BP 149 / 92; Pulse 74; Resp 14 S; Temp 98.6(O); Pulse Ox 100% on R/A; EKG s 68 beats/min. Rhythm is regular. QRS [place] is Normal. NH interval is normal. QRS interval is normal. No Q waves. T waves are Normal. No ST changes noted. Clinical impression: Abnormal EKG without significant change CT abd IMPRESSION: No urinary tract stones or obstructive uropathy. Cholelithiasis. There is a large amount of retained stool throughout the colon. Rectal fecal impaction also suspected. CXR IMPRESSION: No acute intrathoracic process suspected.Head CT MPRESSION: No acute intracranial abnormality. Advanced atrophy and chronic microvascular ischemic. [id number] 14:16 This 87 yrs old Black Male presents to ER via EMS with complaints of Altered Mental bang Status, General Weakness. 14:16 The patient presents with confusion, decreased mental status. Onset: The bang symptoms/episode began/occurred 2 day(s) ago. Possible causes: CVA or TIA, head injury, low blood sugar, sepsis. Associated signs and symptoms: Pertinent positives: confusion, dizziness, weakness. Current symptoms: In the emergency department the patient's symptoms are unchanged from the initial presentation. 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 Staley with a most recent GFR reported as 39%. Hx acute HD in the past. No NSAIDs. No difficulty with urination reported by the family. Limited HPI/ ROS due to dementia. Right knee pain reported by the family. Allergies No Known Allergies Allergy (Unverified 02/03/23 17:31) - Past Medical/Surgical History -: HTN -: CKD III (Dr. Staley/ Dr. You) -: HLD -: CVA -: Seizure Disorder -: Dementia -: appy Psychosocial/ Personal History: lives [facility] family - Social History Alcohol use: No CD- Drugs: No Caffeine use: No Place of Residence: Home Review of Systems 10-point ROS is otherwise unremarkable Musculoskeletal: Other (Right Knee Pain) Neurological: Confusion Physical Examination Temp Pulse Resp BP Pulse Ox 99.3 F 80 18 197/91 H 93 02/04/23 07:09 02/04/23 07:09 02/04/23 07:09 02/04/23 07:09 02/04/23 07:09 General: In no apparent distress, Confused HEENT: Atraumatic Neck: Supple Respiratory: Clear to auscultation bilaterally Cardiovascular: No edema, Regular rate/rhythm Gastrointestinal: Soft and benign, Non-distended Musculoskeletal: No clubbing, No contractures Integumentary: No rashes, No cyanosis Neurological: Normal speech Laboratory Data (last 24 hrs) 02/03/23 02/03/23 02/03/23 12:35 12:35 12:35 WBC 6.20 Hgb 10.8 L Hct 32.0 L Plt Count 257 PT 11.5 INR 1.05 Sodium 141 Potassium 3.7 BUN 32 H Creatinine 2.02 H Glucose 111 H Magnesium 2.4 Total Bilirubin 0.5 AST 19 ALT 24 Alkaline Phosphatase 86 Imagings Data: [id number] EXAM DESCRIPTION: US - Renal Ultrasound-Complete - 02/03/2023 8:32 pm CLINICAL HISTORY: acute renal failure Flank pain COMPARISON: Stone Protocol dated 02/03/2023 FINDINGS: Both kidneys are mildly echogenic. The right kidney measures 10.3 x 6.5 x 4.8 cm. No hydronephrosis, focal mass or perinephric fluid. The left kidney measures 9.9 x 5.6 x 4.9 cm. No hydronephrosis, focal mass or perinephric fluid. The urinary bladder is incompletely distended without gross abnormality seen. IMPRESSION: Mildly echogenic kidneys suggests underlying medical renal disease. [id number] EXAM DESCRIPTION: CT - Stone Protocol - 02/03/2023 1:41 pm CLINICAL HISTORY: Flank pain. Flank pain;Fever COMPARISON: <Comparisons> TECHNIQUE: Axial images were obtained without oral or IV contrast. Lack of contrast limits solid organ and vascular assessment. The [id number] spans the entirety of the system partially obscuring uppermost abdomen and lung bases. Coronal reformatted images were obtained and reviewed. All CT scans are performed using dose optimization technique as appropriate and may include automated exposure control or mA/KV adjustment according to patient size. FINDINGS: The lower lung conner are clear. The liver contains nonspecific 21 mm low-density lesion lateral right lobe. Additional 22 mm low-density lesion inferior right lobe additional small sub centimeter lesions are present centrally and in the left lobe. These are incompletely assessed on noncontrast CT.Cholelithiasis. The pancreas and adrenal glands are normal. No pathologic lymphadenopathy in the abdomen or pelvis. Aortoiliac atherosclerosis. Small to moderate fat containing umbilical hernia. No urinary tract stones or obstructive uropathy. No bowel obstruction, free air, free fluid or abscess. The appendix is not identified as a discrete structure, however, no secondary findings of appendicitis are identified. Significant stool retention is present throughout the colon with a particularly notable amount of stool retained in the rectum. Bilateral fat containing inguinal hernias, slightly larger on the left. No significant bony abnormality. IMPRESSION: No urinary tract stones or obstructive uropathy. Cholelithiasis. There is a large amount of retained stool throughout the colon. Rectal fecal impaction also suspected. [id number] EXAM DESCRIPTION: RAD - Chest Single View - 02/03/2023 12:23 pm CLINICAL HISTORY: COUGH Chest pain. COMPARISON: <Comparisons> FINDINGS: Portable technique limits examination quality. The lungs are grossly clear. The heart is mildly enlarged in size. Chondroid lesion is seen in the shaft of the proximal right humerus.Aortic atherosclerosis. IMPRESSION: No acute intrathoracic process suspected. Conclusions/Impression: CKD IIIb with Proteinuria -No NSAIDs -Hold diuresis at this time Microscopic hematuria -Repeat UA HTN with CKD -Change to Nifedipine ER -Continue Hydralaizine Elevated BNP -Echocardiogram pending Hyperglycemia -No sugar diet Anemia in chronic illness -Monitor H&H BPH with LUTS -Continue finasteride Right knee pain -Knee xray ordered Thank you kindly for the consultation Case reviewed with the family at the bedside Home medications requested for the chart
[2023-02-04] MEDS ORDERED: FUROSEMIDE 40 MG/4 ML VIAL IV SCH (09:00)
[2023-02-04] MEDS ORDERED: NIFEdipine 10 MG CAP PO SCH ×2 (09:00→10:00)
[2023-02-04] MEDS ORDERED: MINERAL OIL ENEMA 135 ML BTL PR SCH (09:00)
[2023-02-04] MEDS: OXcarbazepine 150 MG TAB PO SCH ×2 (09:27→21:00)
[2023-02-04] MEDS: HYDRALAZINE HCL 25 MG TABLET PO SCH ×3 (09:28→21:24)
[2023-02-04] MEDS: FINASTERIDE 5 MG TAB PO SCH (09:28)
[2023-02-04] MEDS: MEMANTINE HCL 10 MG TABLET PO SCH (09:28)
[2023-02-04] MEDS: ASPIRIN EC 81 MG TAB PO SCH (09:28)
[2023-02-04] MEDS ORDERED: NACHLORIDE 0.45% 1,000 ML IV SCH (13:00)
[2023-02-04] MEDS: NIFEDIPINE XL 30 MG TABLET PO SCH ×2 (13:21→13:27)
[2023-02-04] MEDS ORDERED: LABETALOL 20 MG/4ML SYRINGE IV PRN (13:29)
--- NOTE | 2023-02-04 16:53 | RAD REPORT ---
EXAM DESCRIPTION: RAD - Knee Right 2 View - 02/04/2023 4:36 pm CLINICAL HISTORY: Right knee pain FINDINGS: No fracture or dislocation is seen. Osteoporosis. 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
[2023-02-04 18:58] VITALS: BMI 26.7
[2023-02-04] MEDS: ATORVASTATIN 10 MG TAB PO SCH (21:24)
[2023-02-05] MEDS: HEPARIN 5000 UNIT/ML 1 ML VIAL SQ SCH ×3 (01:00→17:25)
[2023-02-05 03:01] LABS: Absolute Lymphocytes (CBC) 1.2 K/uL (0.7-4.9); Hematocrit 28.3 % (39.6-49.0); Lymphocytes % 19.6 % (15.3-44.8); MCV 93.6 fL (80-100); MPV 9.7 fL (7.6-11.3); Platelets 207 thou/uL (152-406); RBC Red Blood Cell Count 3.03 M/uL (4.33-5.43)
[2023-02-05 03:26] LABS: Phosphorus 3.5 mg/dL (2.5-4.9); Potassium 3.4 mEq/L (3.5-5.1); Uric Acid 5.7 mg/dL (3.5-7.2)
[2023-02-05] MEDS: NA CHLORIDE 0.9% 1,000 ML IV SCH (06:00)
[2023-02-05] MEDS: MEMANTINE HCL 10 MG TABLET PO SCH (08:24)
[2023-02-05] MEDS: FINASTERIDE 5 MG TAB PO SCH (08:24)
[2023-02-05] MEDS: ASPIRIN EC 81 MG TAB PO SCH (08:24)
[2023-02-05] MEDS: NIFEDIPINE XL 30 MG TABLET PO SCH ×2 (08:26→20:42)
[2023-02-05] MEDS: HYDRALAZINE HCL 25 MG TABLET PO SCH ×3 (08:26→20:42)
[2023-02-05] MEDS: OXcarbazepine 150 MG TAB PO SCH ×2 (08:26→20:41)
--- NOTE | 2023-02-05 10:00 | P.PN ---
Subjective Date of Service: 02/05/23 Chief Complaint: KILO Subjective: No new changes, Improving, Doing well Patient is sleepy, arousable Spouse at bedside, denies any new complaints Vital signs stable Discussed with the nursing staff <Rafal Bustos - Last Filed: 02/05/23 12:47> Date of Service: 02/05/23 <Cahrity Ascencio - Last Filed: 02/05/23 18:10> Review of Systems 10-point ROS is otherwise unremarkable <Rafal Bustos - Last Filed: 02/05/23 12:47> Physical Examination - Vital Signs Temperature: 98.5 F Blood Pressure: 185/86 Pulse: 64 Respirations: 18 Pulse Ox (%): 95 - Physical Exam General: Alert, Oriented x1, Cooperative HEENT: Atraumatic Neck: 2+ carotid pulse no bruit Respiratory: Clear to auscultation bilaterally, Normal air movement Cardiovascular: No edema, Regular rate/rhythm, Normal S1 S2 Capillary refill: <2 Seconds Gastrointestinal: Normal bowel sounds, Soft and benign Musculoskeletal: No clubbing, No swelling Neurological: Normal tone, Normal affect <Rafal Bustos - Last Filed: 02/05/23 12:47> Assessment And Plan - Current Problems (Diagnosis) (1) Metabolic encephalopathy Current Visit: Yes Status: Acute (2) Alzheimers disease Current Visit: Yes Status: Chronic (3) Dementia Current Visit: Yes Status: Chronic Qualifiers: Dementia type: unspecified type Dementia severity: moderate (4) CKD (chronic kidney disease) stage 4, GFR 15-29 ml/min Current Visit: Yes Status: Chronic (5) Hypertension Current Visit: Yes Status: Chronic Qualifiers: Hypertension type: primary hypertension Qualified Code(s): I10 - Essential (primary) hypertension (6) Anemia Current Visit: Yes Status: Acute Qualifiers: Anemia type: unspecified type Qualified Code(s): D64.9 - Anemia, unspecified (7) Hyperlipidemia Current Visit: Yes Status: Chronic Qualifiers: Hyperlipidemia type: moderate mixed hyperlipidemia not requiring statin therapy Qualified Code(s): E78.2 - Mixed hyperlipidemia (8) Seizures Current Visit: Yes Status: Chronic (9) CVA (cerebral vascular accident) Current Visit: Yes Status: Chronic - Plan - Plan Metabolic encephalopathy likely from acute renal failure history of dementia, unknown baseline orientation Chronic, improving CT abd IMPRESSION: No urinary tract stones or obstructive uropathy. Cholelithiasis. There is a large amount of retained stool throughout the colon. Rectal fecal impaction also suspected. CXR IMPRESSION: No acute intrathoracic process suspected.Head CT MPRESSION: No acute intracranial abnormality. Advanced atrophy and chronic microvascular ischemic Renal US ordered, IMPRESSION: Mildly echogenic kidneys suggests underlying medical renal disease UA no leukoesterase acute renal failure CKD unkn baseline gentle IVF, neph consult, trend kidney function BUN 36, creatinine 2.2, GFR 28, UA unremarkable, elevated troponin elevated BNP Echo ordered for the a.m. Lasix BNP 2825 today HTN urgency Improving. On nifedipine 30 mg p.o. daily, hydralazine 25 mg p.o. 3 times daily prn antihypertensives, renal US ECHO ordered Thursday 02/08 68 beats/min. Rhythm is regular.. Normocytic anemia Hemoglobin 9.6, hematocrit 28 Trend H&H essential HTN HLD CKD CVA sezure disorder Dementia Alzheimer's resume approp home meds PT eval to encourage ambulation Full code DVT heparin Diet cardiac Discharge Plan: Home Plan to discharge in: 48 Hours - Code Status/Comfort Care Code Status Assessed: Yes (full code) Comfort Measures: Palliative Care Physician Review: Patient Assessed, Agree with Above Assessment and Plan Critical Care: No Time Spent Managing PTS Care (In Minutes): 35 (minutes) <Rafal Bustos - Last Filed: 02/05/23 12:47> Physician Review Additional Text: 02/05/23 18:01 Pt seen and examined. I agree with the note by the GENERAL FREIGHT AGENT. Cr is trending down. Will avoid nephrotoxins and monitor renal function. <Charity Ascencio - Last Filed: 02/05/23 18:10>
[2023-02-05] MEDS ORDERED: POTASSIUM 25 MEQ EFFERV TAB PO ONE (12:00)
[2023-02-05] MEDS: DRISDOL (VITAMIN D=ERGOCALCIFEROL) 50000 UNIT CAP PO SCH (12:04)
[2023-02-05] MEDS: DOCUSATE NA 100 MG CAP PO SCH ×2 (12:04→20:41)
--- NOTE | 2023-02-05 13:37 | RAD REPORT ---
EXAM DESCRIPTION: RAD - Abdomen 1 View (KUB) - 02/05/2023 1:18 pm CLINICAL HISTORY: Rectal Fecal Impaction Pain COMPARISON: <Comparisons> FINDINGS: Large amount of stool again noted in the rectal vault. Multiple dilated small bowel loops are present in the central abdomen suggesting mechanical obstruction. No free air is present. IMPRESSION: Large amount of stool in the rectal vault. Distended loops of bowel in the central abdom en suggest developing mechanical obstruction.
[2023-02-05] MEDS ORDERED: MINERAL OIL 30 ML UCUP PO ONE (20:08)
[2023-02-05] MEDS: ATORVASTATIN 10 MG TAB PO SCH (20:42)
[2023-02-06] MEDS: HEPARIN 5000 UNIT/ML 1 ML VIAL SQ SCH ×3 (01:58→16:31)
[2023-02-06] MEDS: NA CHLORIDE 0.9% 1,000 ML IV SCH (02:00)
[2023-02-06 02:55] LABS: Absolute Lymphocytes (CBC) 1.3 K/uL (0.7-4.9); Hematocrit 28.9 % (39.6-49.0); MCV 92.4 fL (80-100); MPV 8.7 fL (7.6-11.3); Platelets 257 thou/uL (152-406); RBC Red Blood Cell Count 3.13 M/uL (4.33-5.43)
[2023-02-06 03:02] LABS: Potassium 3.9 mEq/L (3.5-5.1)
--- NOTE | 2023-02-06 09:30 | P.PN ---
Subjective Date of Service: 02/06/23 Chief Complaint: KILO Subjective: No new changes, Improving, Doing well Patient is sleepy, arousable Spouse at bedside, denies any new complaints Vital signs stable Discussed with the nursing staff <BustosRafal krishnamurthy - Last Filed: 02/06/23 09:27> Date of Service: 02/06/23 <Charity Ascencio Pako - Last Filed: 02/06/23 18:08> Review of Systems 10-point ROS is otherwise unremarkable <BustosRafal krishnamurthy - Last Filed: 02/06/23 09:27> Physical Examination - Vital Signs Temperature: 99.6 F Blood Pressure: 160/87 Pulse: 77 Respirations: 17 Pulse Ox (%): 96 - Physical Exam General: Alert, Oriented x1 HEENT: Atraumatic, Normocephalic Neck: Supple, 2+ carotid pulse no bruit Respiratory: Clear to auscultation bilaterally, Normal air movement Capillary refill: <2 Seconds Gastrointestinal: Normal bowel sounds, Soft and benign Musculoskeletal: No clubbing, No swelling, No contractures Neurological: Normal speech, Normal tone, Normal affect <[place] Bustosfrench - Last Filed: 02/06/23 09:27> Assessment And Plan - Current Problems (Diagnosis) (1) Metabolic encephalopathy Current Visit: Yes Status: Acute (2) Alzheimers disease Current Visit: Yes Status: Chronic (3) Dementia Current Visit: Yes Status: Chronic Qualifiers: Dementia type: unspecified type Dementia severity: moderate (4) CKD (chronic kidney disease) stage 4, GFR 15-29 ml/min Current Visit: Yes Status: Chronic (5) Hypertension Current Visit: Yes Status: Chronic Qualifiers: Hypertension type: primary hypertension Qualified Code(s): I10 - Essential (primary) hypertension (6) Anemia Current Visit: Yes Status: Acute Qualifiers: Anemia type: unspecified type Qualified Code(s): D64.9 - Anemia, unspecified (7) Hyperlipidemia Current Visit: Yes Status: Chronic Qualifiers: Hyperlipidemia type: moderate mixed hyperlipidemia not requiring statin therapy Qualified Code(s): E78.2 - Mixed hyperlipidemia (8) Seizures Current Visit: Yes Status: Chronic (9) CVA (cerebral vascular accident) Current Visit: Yes Status: Chronic - Plan - Plan Metabolic encephalopathy likely from acute renal failure history of dementia, unknown baseline orientation Chronic, improving CT abd IMPRESSION: No urinary tract stones or obstructive uropathy. Cholelithiasis. There is a large amount of retained stool throughout the colon. Rectal fecal impaction also suspected. CXR IMPRESSION: No acute intrathoracic process suspected.Head CT MPRESSION: No acute intracranial abnormality. Advanced atrophy and chronic microvascular ischemic Renal US ordered, IMPRESSION: Mildly echogenic kidneys suggests underlying medical renal disease UA no leukoesterase acute renal failure CKD unkn baseline gentle IVF, neph consult, trend kidney function BUN 36, creatinine 2.2, GFR 28, UA unremarkable, elevated troponin elevated BNP Echo ordered for the a.m. Lasix BNP 2825 today HTN urgency Improving. On nifedipine 30 mg p.o. daily, hydralazine 25 mg p.o. 3 times daily prn antihypertensives, renal US ECHO ordered Thursday 02/08 68 beats/min. Rhythm is regular.. Normocytic anemia Hemoglobin 9.6, hematocrit 28 Trend H&H essential HTN HLD CKD CVA sezure disorder Dementia Alzheimer's resume approp home meds PT eval to encourage ambulation Full code DVT heparin Diet cardiac Discharge Plan: Home Plan to discharge in: 24 Hours - Code Status/Comfort Care Code Status Assessed: Yes (Full code) Code Status: Full Code Physician Review: Patient Assessed, Agree with Above Assessment and Plan Critical Care: Yes Time Spent Managing PTS Care (In Minutes): 35 (Minutes) <Rafal Bustos - Last Filed: 02/06/23 09:27> Physician Review Additional Text: 02/06/23 18:08 Pt seen and examined. I agree withe note by the SIMPLEX PRINTER INSTALLER. Pt will benefit from SNF placement because he is max assist per PT/ His cannot lift him up. <Charity Ascencio - Last Filed: 02/06/23 18:08>
[2023-02-06] MEDS: DOCUSATE NA 100 MG CAP PO SCH ×2 (09:55→21:07)
[2023-02-06] MEDS: OXcarbazepine 150 MG TAB PO SCH ×2 (09:55→21:06)
[2023-02-06] MEDS: HYDRALAZINE HCL 25 MG TABLET PO SCH ×3 (09:55→21:07)
[2023-02-06] MEDS: ASPIRIN EC 81 MG TAB PO SCH (09:56)
[2023-02-06] MEDS: FINASTERIDE 5 MG TAB PO SCH (09:56)
[2023-02-06] MEDS: NIFEDIPINE XL 30 MG TABLET PO SCH ×2 (09:56→21:07)
[2023-02-06] MEDS: MEMANTINE HCL 10 MG TABLET PO SCH (09:57)
--- NOTE | 2023-02-06 12:54 | ECHO ---
HEIGHT: 5 ft 9 in WEIGHT: 181 lb 0 oz DATE OF STUDY: 02/05/[address]: Kalpana López 2-DIMENSIONAL: YES M.MODE: YES DOPPLER: YES COLOR FLOW: YES TDS: YES PORTABLE: YES DEFINITY: BUBBLE STUDY: DIAGNOSIS: ELEVATED TROPONIN CARDIAC HISTORY: CATHERIZATION: SURGERY: PROSTHETIC VALVE: PACEMAKER: MEASUREMENTS (cm) DIASTOLIC (NORMALS) SYSTOLIC (NORMALS) IVSd 1.2 (0.6-1.2) LA Diam (1.9-4.0) LVEF 66% LVIDd 3.7 (3.5-5.7) LVIDs 2.4 (2.0-3.5) %FS 36% LVPWd 1.5 (0.6-1.2) Ao Diam 2.7 (2.0-3.7) 2 DIMENSIONAL ASSESSMENT: RIGHT ATRIUM: NORMAL LEFT ATRIUM: ENLARGED RIGHT VENTRICLE: NORMAL LEFT VENTRICLE: LEFT VENTRICULAR HYPERTROPHY TRICUSPID VALVE: NORMAL MITRAL VALVE: MILD MITRAL REGURGITATION PULMONIC VALVE: NORMAL AORTIC VALVE: MILD AORTIC INSUFFICIENCY PERICARDIAL EFFUSION: NONE AORTIC ROOT: NORMAL LEFT VENTRICULAR WALL MOTION: NORMAL DOPPLER/COLOR FLOW: SEE BELOW COMMENTS: 1. NORMAL LEFT VENTRICULAR EJECTION FRACTION 60-65% WITH NORMAL WALL MOTION 2. MODERATE CONCENTRIC LEFT VENTRICULAR HYPERTROPHY 3. LEFT ATRIAL ENLARGEMENT 4. MILD MITRAL REGURGITATION 5. MILD AORTIC INSUFFICIENCY TECHNOLOGIST: PHILIP CAMEJO
--- NOTE | 2023-02-06 13:39 | EKG ---
Test Date: 2023-02-03 Test Time: 11:59:57 Mailroom Manager: KATARINA MEASUREMENT RESULTS: Intervals: Rate: 68 AR: 204 QRSD: 112 QT: 408 QTc: 433 [place]: P: 80 AR: 204 QRS: -50 T: 0 INTERPRETIVE STATEMENTS: Normal sinus rhythm Left anterior fascicular block Septal infarct, age undetermined Abnormal ECG No previous ECG available for comparison Electronically Signed On 02-06-23 13:30:12 HUMAN RESOURCES OFFICE MANAGER by Lars Partida
[2023-02-06] MEDS: ATORVASTATIN 10 MG TAB PO SCH (21:07)
--- NOTE | 2023-02-06 21:19 | P.PN ---
Date of Service: 02/06/23 Vital Signs Temp Pulse Resp BP Pulse Ox 98.5 F 71 18 169/84 H 95 02/06/23 16:00 02/06/23 21:07 02/06/23 16:00 02/06/23 21:07 02/06/23 16:00 Medications Acetaminophen (Acetaminophen 500 Mg Tab) 500 mg PO Q4HP PRN PRN Reason: Pain scale 2-4 (Mild) Aspirin (Aspirin Ec 81 Mg Tab) 81 mg PO DAILY [facility] Last Admin: 02/06/23 09:56 Dose: 81 mg Atorvastatin Calcium (Atorvastatin 10 Mg Tab) 10 mg PO BEDTIME [facility] Last Admin: 02/06/23 21:07 Dose: 10 mg Docusate Sodium (Docusate Na 100 Mg Cap) 100 mg PO BID [facility] Last Admin: 02/06/23 21:07 Dose: 100 mg Ergocalciferol (Drisdol (Vitamin D=Ergocalciferol) 08555 Unit Cap) 50,000 unit PO Q48H [facility] Stop: 02/07/23 12:01 Last Admin: 02/05/23 12:04 Dose: 50,000 unit Finasteride (Finasteride 5 Mg Tab) 5 mg PO DAILY [facility] Last Admin: 02/06/23 09:56 Dose: 5 mg Heparin Sodium (Porcine) (Heparin 5000 Unit/Ml 1 Ml Vial) 5,000 unit SQ Q8HR [facility] Last Admin: 02/06/23 16:31 Dose: 5,000 unit Hydralazine HCl (Hydralazine Hcl 25 Mg Tablet) 25 mg PO TID [facility] Last Admin: 02/06/23 21:07 Dose: 25 mg Hydralazine HCl (Hydralazine Hcl 20 Mg/Ml Vial) 10 mg IV Q4HP PRN PRN Reason: FOR SBP>160 OR DBP>100 MMHG Labetalol HCl (Labetalol 20 Mg/4ml Syringe) 10 mg IV Q4H PRN PRN Reason: Give for SBP greater than 165 Memantine (Memantine Hcl 10 Mg Tablet) 5 mg PO DAILY [facility] Last Admin: 02/06/23 09:57 Dose: 5 mg Nifedipine (Nifedipine Xl 30 Mg Tablet) 30 mg PO BID [facility] Last Admin: 02/06/23 21:07 Dose: 30 mg Ondansetron HCl (Ondansetron 4 Mg/2 Ml Vial) 4 mg IV Q6HP PRN PRN Reason: NAUSEA / VOMITING Oxcarbazepine (Oxcarbazepine 150 Mg Tab) 450 mg PO BID [facility] Last Admin: 02/06/23 21:06 Dose: 450 mg Polyethylene Glycol (Polyethyl Gly 3350 17 Gm/Dose) 17 gm PO DAILY PRN PRN Reason: CONSTIPATION - 1ST LINE Last Admin: 02/05/23 11:48 Dose: 17 gm Senna (Senosides 8.6 Mg Tab) 8.6 mg PO DAILY PRN PRN Reason: CONSTIPATION - 2ND LINE Last Admin: 02/05/23 11:48 Dose: 8.6 mg Microbiology Results 02/03/23 12:15 Blood - Blood Aerobic Blood Culture - Preliminary No growth in 24 hours. 02/03/23 12:15 Blood - Blood Anaerobic Blood Culture - Preliminary No growth in 24 hours. 02/03/23 12:35 Blood - Blood Aerobic Blood Culture - Preliminary No growth in 24 hours. 02/03/23 12:35 Blood - Blood Anaerobic Blood Culture - Preliminary No growth in 24 hours. 02/03/23 12:20 Nasopharnyx Influenza Type A Antigen Screen - Final 02/03/23 12:20 Nasopharnyx Influenza Type B Antigen Screen - Final Assessment/ Plan: Nephrology Progress Note No Dyspnea No Chest Pain +BM No Acute Events Overnight Limited IH/ ROS due to dementia Vital Signs, Medications, Blood Work, and Imaging reviewed in the chart General: In no apparent distress, Confused HEENT: Atraumatic Neck: Supple Respiratory: Clear to auscultation bilaterally Cardiovascular: No edema, Regular rate/rhythm Gastrointestinal: Soft and benign, Non-distended Musculoskeletal: No clubbing, No contractures Integumentary: No rashes, No cyanosis Neurological: Normal speech Laboratory Data (last 24 hrs) 02/03/23 02/03/23 02/03/23 12:35 12:35 12:35 WBC 6.20 Hgb 10.8 L Hct 32.0 L Plt Count 257 PT 11.5 INR 1.05 Sodium 141 Potassium 3.7 BUN 32 H Creatinine 2.02 H Glucose 111 H Magnesium 2.4 Total Bilirubin 0.5 AST 19 ALT 24 Alkaline Phosphatase 86 Imagings Data: [id number] EXAM DESCRIPTION: US - Renal Ultrasound-Complete - 02/03/2023 8:32 pm CLINICAL HISTORY: acute renal failure Flank pain COMPARISON: Stone Protocol dated 02/03/2023 FINDINGS: Both kidneys are mildly echogenic. The right kidney measures 10.3 x 6.5 x 4.8 cm. No hydronephrosis, focal mass or perinephric fluid. The left kidney measures 9.9 x 5.6 x 4.9 cm. No hydronephrosis, focal mass or perinephric fluid. The urinary bladder is incompletely distended without gross abnormality seen. IMPRESSION: Mildly echogenic kidneys suggests underlying medical renal disease. [id number] EXAM DESCRIPTION: CT - Stone Protocol - 02/03/2023 1:41 pm CLINICAL HISTORY: Flank pain. Flank pain;Fever COMPARISON: <Comparisons> TECHNIQUE: Axial images were obtained without oral or IV contrast. Lack of contrast limits solid organ and vascular assessment. The [id number] spans the entirety of the system partially obscuring uppermost abdomen and lung bases. Coronal reformatted images were obtained and reviewed. All CT scans are performed using dose optimization technique as appropriate and may include automated exposure control or mA/KV adjustment according to patient size. FINDINGS: The lower lung conner are clear. The liver contains nonspecific 21 mm low-density lesion lateral right lobe. Additional 22 mm low-density lesion inferior right lobe additional small subcentimeter lesions are present centrally and in the left lobe. These are incompletely assessed on noncontrast CT.Cholelithiasis. The pancreas and adrenal glands are normal. No pathologic lymphadenopathy in the abdomen or pelvis. Aortoiliac atherosclerosis. Small to moderate fat containing umbilical hernia. No urinary tract stones or obstructive uropathy. No bowel obstruction, free air, free fluid or abscess. The appendix is not identified as a discrete structure, however, no secondary findings of appendicitis are identified. Significant stool retention is present throughout the colon with a particularly notable amount of stool retained in the rectum. Bilateral fat containing inguinal hernias, slightly larger on the left. No significant bony abnormality. IMPRESSION: No urinary tract stones or obstructive uropathy. Cholelithiasis. There is a large amount of retained stool throughout the colon. Rectal fecal impaction also suspected. [id number] EXAM DESCRIPTION: RAD - Chest Single View - 02/03/2023 12:23 pm CLINICAL HISTORY: COUGH Chest pain. COMPARISON: <Comparisons> FINDINGS: Portable technique limits examination quality. The lungs are grossly clear. The heart is mildly enlarged in size. Chondroid lesion is seen in the shaft of the proximal right humerus.Aortic atherosclerosis. IMPRESSION: No acute intrathoracic process suspected. Reason for Exam: Right knee pain/ tenderness Report Status: Signed EXAM DESCRIPTION: RAD - Knee Right 2 View - 02/04/2023 4:36 pm CLINICAL HISTORY: Right knee pain FINDINGS: No fracture or dislocation is seen. Osteoporosis. 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 [id number] LEFT VENTRICULAR WALL MOTION: NORMAL DOPPLER/COLOR FLOW: SEE BELOW COMMENTS: 1. NORMAL LEFT VENTRICULAR EJECTION FRACTION 60-65% WITH NORMAL WALL MOTION 2. MODERATE CONCENTRIC LEFT VENTRICULAR HYPERTROPHY 3. LEFT ATRIAL ENLARGEMENT 4. MILD MITRAL REGURGITATION 5. 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
[2023-02-06 23:38] LABS: UR PROTEIN 112.5 mg/dL (<11.9); Urine Protein/Creatinine Ratio 0.83 ratio (<0.15)
[2023-02-07 00:16] LABS: Specific Gravity 1.019 (1.005-1.030); Urine Bacteria None Seen /HPF (<20); Urine Bilirubin NEGATIVE (Negative); Urine Blood Negative (Negative); Urine Clarity Turbid (Clear); Urine Color Light-Yellow (Yellow); Urine Glucose NEGATIVE (Negative); Urine Protein 1+ (Negative); Urine RBC <5 /HPF (None Seen); Urine Urobilinogen Normal (Normal); Urine pH 5.5 (5.0-7.0)
[2023-02-07] MEDS: HEPARIN 5000 UNIT/ML 1 ML VIAL SQ SCH ×3 (00:27→15:56)
[2023-02-07 00:59] LABS: UR MICROALBUMIN 48.1 mg/dL (< 1.9)
[2023-02-07 02:29] LABS: Albumin 2.3 g/dL (3.4-5.0); Phosphorus 3.6 mg/dL (2.5-4.9); Potassium 3.3 mEq/L (3.5-5.1); Uric Acid 6.2 mg/dL (3.5-7.2)
[2023-02-07] MEDS ORDERED: POTASSIUM CL SA 10 MEQ TAB PO ONE ×2 (05:21→07:30)
[2023-02-07] MEDS ORDERED: NIFEDIPINE XL 30 MG TABLET PO SCH (09:00)
[2023-02-07] MEDS: DOCUSATE NA 100 MG CAP PO SCH ×2 (09:00→22:08)
[2023-02-07] MEDS: ASPIRIN EC 81 MG TAB PO SCH (09:13)
[2023-02-07] MEDS: OXcarbazepine 150 MG TAB PO SCH ×2 (09:13→22:05)
[2023-02-07] MEDS: FINASTERIDE 5 MG TAB PO SCH (09:13)
[2023-02-07] MEDS: POTASSIUM CL SA 10 MEQ TAB PO SCH ×2 (09:14→12:00)
[2023-02-07] MEDS: NIFEDIPINE XL 60 MG TABLET PO SCH ×2 (09:15→22:22)
[2023-02-07] MEDS: MEMANTINE HCL 10 MG TABLET PO SCH (09:15)
[2023-02-07] MEDS: HYDRALAZINE HCL 25 MG TABLET PO SCH ×3 (09:16→22:22)
--- NOTE | 2023-02-07 10:36 | P.PN ---
Subjective Date of Service: 02/07/23 Chief Complaint: KILO Subjective: No new changes, Improving Patient is sleepy, arousable Pleasantly confused Spouse at bedside, denies any new complaints Vital signs stable Discussed with the nursing staff Pending approval for SNF <Rafal Bustos - Last Filed: 02/07/23 10:37> Date of Service: 02/07/23 <Charity Ascencio Pako - Last Filed: 02/07/23 15:28> Review of Systems 10-point ROS is otherwise unremarkable <Rafal Bustos - Last Filed: 02/07/23 10:37> Physical Examination - Vital Signs Temperature: 98.7 F Blood Pressure: 152/76 Pulse: 78 Respirations: 18 Pulse Ox (%): 97 - Physical Exam General: Alert, Oriented x1, Cooperative HEENT: Atraumatic, Normocephalic Neck: Supple, 2+ carotid pulse no bruit Respiratory: Clear to auscultation bilaterally, Normal air movement Cardiovascular: No edema, Normal pulses Capillary refill: <2 Seconds Gastrointestinal: Normal bowel sounds, Soft and benign Musculoskeletal: No clubbing, No swelling Neurological: Normal speech, Normal tone, Normal affect, Dementia (Responds appropriately, confused) <Rafal Bustos - Last Filed: 02/07/23 10:37> Assessment And Plan - Current Problems (Diagnosis) (1) Metabolic encephalopathy Current Visit: Yes Status: Acute (2) Alzheimers disease Current Visit: Yes Status: Chronic (3) Dementia Current Visit: Yes Status: Chronic Qualifiers: Dementia type: unspecified type Dementia severity: moderate (4) CKD (chronic kidney disease) stage 4, GFR 15-29 ml/min Current Visit: Yes Status: Chronic (5) Hypertension Current Visit: Yes Status: Chronic Qualifiers: Hypertension type: primary hypertension Qualified Code(s): I10 - Essential (primary) hypertension (6) Anemia Current Visit: Yes Status: Acute Qualifiers: Anemia type: unspecified type Qualified Code(s): D64.9 - Anemia, unspecified (7) Hyperlipidemia Current Visit: Yes Status: Chronic Qualifiers: Hyperlipidemia type: moderate mixed hyperlipidemia not requiring statin therapy Qualified Code(s): E78.2 - Mixed hyperlipidemia (8) Seizures Current Visit: Yes Status: Chronic (9) CVA (cerebral vascular accident) Current Visit: Yes Status: Chronic - Plan - Plan Metabolic encephalopathy likely from acute renal failure history of dementia, unknown baseline orientation Chronic, improving CT abd IMPRESSION: No urinary tract stones or obstructive uropathy. Cholelithiasis. There is a large amount of retained stool throughout the colon. Rectal fecal impaction also suspected. CXR IMPRESSION: No acute intrathoracic process suspected.Head CT MPRESSION: No acute intracranial abnormality. Advanced atrophy and chronic microvascular ischemic Renal US ordered, IMPRESSION: Mildly echogenic kidneys suggests underlying medical renal disease UA no leukoesterase acute renal failure CKD unkn baseline gentle IVF, neph consult, trend kidney function BUN 36, creatinine 2.2, GFR 28, UA unremarkable, elevated troponin elevated BNP Echo ordered for the a.m. Lasix BNP 2825 today HTN CKD IIIb with Proteinuria -No NSAIDs -Improving. On nifedipine 30 mg p.o. daily, hydralazine 25 mg p.o. 3 times daily -prn antihypertensives, renal US ECHO ordered Thursday 02/08 Normocytic anemia Anemia in chronic illness -Monitor H&H Hemoglobin 9.6, hematocrit 28 Trend H&H Right knee pain due to OA with effusion -Ongoing, denies pain -Knee xray reviewed -Consider arthrocentesis to improve mobility -Pending approval for SNF -Continue PT to encourage ambulation essential HTN HLD CKD CVA sezure disorder Dementia Alzheimer's resume approp home meds Full code DVT heparin Diet cardiac Discharge Plan: Home Plan to discharge in: 24 Hours - Code Status/Comfort Care Code Status Assessed: Yes (Full code) Code Status: Full Code Physician Review: Patient Assessed, Agree with Above Assessment and Plan Critical Care: No Time Spent Managing PTS Care (In Minutes): 35 (Minute) <Rafal Bustos - Last Filed: 02/07/23 10:37> Physician Review Additional Text: 02/07/23 15:27 Pt seen and examined. I agree with the note by the ECONOMIC DEVELOPMENT COORDINATOR. Pt has been pocketting meds in his mouth. Will give iv KCL. Pt is waiting for SNF <Charity Ascencio - Last Filed: 02/07/23 15:28>
[2023-02-07] MEDS: DRISDOL (VITAMIN D=ERGOCALCIFEROL) 50000 UNIT CAP PO SCH (12:00)
[2023-02-07] MEDS ORDERED: POTASSIUM CL 40 MEQ in NA CHLORIDE 0.9% 500 ML IV SCH (15:00)
--- NOTE | 2023-02-07 20:37 | P.PN ---
Date of Service: 02/07/23 Vital Signs Temp Pulse Resp BP Pulse Ox 99.3 F 62 20 155/82 H 97 02/07/23 12:00 02/07/23 12:00 02/07/23 12:00 02/07/23 14:00 02/07/23 12:00 Medications Acetaminophen (Acetaminophen 500 Mg Tab) 500 mg PO Q4HP PRN PRN Reason: Pain scale 2-4 (Mild) Aspirin (Aspirin Ec 81 Mg Tab) 81 mg PO DAILY [facility] Last Admin: 02/07/23 09:13 Dose: 81 mg Atorvastatin Calcium (Atorvastatin 10 Mg Tab) 10 mg PO BEDTIME [facility] Last Admin: 02/06/23 21:07 Dose: 10 mg Docusate Sodium (Docusate Na 100 Mg Cap) 100 mg PO BID [facility] Last Admin: 02/07/23 09:00 Dose: 100 mg Finasteride (Finasteride 5 Mg Tab) 5 mg PO DAILY [facility] Last Admin: 02/07/23 09:13 Dose: 5 mg Heparin Sodium (Porcine) (Heparin 5000 Unit/Ml 1 Ml Vial) 5,000 unit SQ Q8HR [facility] Last Admin: 02/07/23 15:56 Dose: 5,000 unit Hydralazine HCl (Hydralazine Hcl 20 Mg/Ml Vial) 10 mg IV Q4HP PRN PRN Reason: FOR SBP>160 OR DBP>100 [facility] Last Admin: 02/07/23 05:00 Dose: 10 mg Hydralazine HCl (Hydralazine Hcl 25 Mg Tablet) 25 mg PO TID [facility] Last Admin: 02/07/23 15:56 Dose: 25 mg Labetalol HCl (Labetalol 20 Mg/4ml Syringe) 10 mg IV Q4H PRN PRN Reason: Give for SBP greater than 165 Memantine (Memantine Hcl 10 Mg Tablet) 5 mg PO DAILY [facility] Last Admin: 02/07/23 09:15 Dose: 5 mg Nifedipine (Nifedipine Xl 60 Mg Tablet) 60 mg PO BID [facility] Last Admin: 02/07/23 09:15 Dose: 60 mg Ondansetron HCl (Ondansetron 4 Mg/2 Ml Vial) 4 mg IV Q6HP PRN PRN Reason: NAUSEA / VOMITING Oxcarbazepine (Oxcarbazepine 150 Mg Tab) 450 mg PO BID [facility] Last Admin: 02/07/23 09:13 Dose: 450 mg Polyethylene Glycol (Polyethyl Gly 3350 17 Gm/Dose) 17 gm PO DAILY PRN PRN Reason: CONSTIPATION - 1ST LINE Last Admin: 02/05/23 11:48 Dose: 17 gm Senna (Senosides 8.6 Mg Tab) 8.6 mg PO DAILY PRN PRN Reason: CONSTIPATION - 2ND LINE Last Admin: 02/05/23 11:48 Dose: 8.6 mg Microbiology Results 02/03/23 12:15 Blood - Blood Aerobic Blood Culture - Preliminary No growth in 24 hours. 02/03/23 12:15 Blood - Blood Anaerobic Blood Culture - Preliminary No growth in 24 hours. 02/03/23 12:35 Blood - Blood Aerobic Blood Culture - Preliminary No growth in 24 hours. 02/03/23 12:35 Blood - Blood Anaerobic Blood Culture - Preliminary No growth in 24 hours. 02/03/23 12:20 Nasopharnyx Influenza Type A Antigen Screen - Final 02/03/23 12:20 Nasopharnyx Influenza Type B Antigen Screen - Final Assessment/ Plan: Nephrology Progress Note No Dyspnea No Chest Pain +BM +PO No Acute Events Overnight Limited IH/ ROS due to dementia Vital Signs, Medications, Blood Work, and Imaging reviewed in the chart General: In no apparent distress, Confused HEENT: Atraumatic Neck: Supple Respiratory: Clear to auscultation bilaterally Cardiovascular: No edema, Regular rate/rhythm Gastrointestinal: Soft and benign, Non-distended Musculoskeletal: No clubbing, No contractures Integumentary: No rashes, No cyanosis Neurological: Normal speech Laboratory Data (last 24 hrs) 02/03/23 02/03/23 02/03/23 12:35 12:35 12:35 WBC 6.20 Hgb 10.8 L Hct 32.0 L Plt Count 257 PT 11.5 INR 1.05 Sodium 141 Potassium 3.7 BUN 32 H Creatinine 2.02 H Glucose 111 H Magnesium 2.4 Total Bilirubin 0.5 AST 19 ALT 24 Alkaline Phosphatase 86 Imagings Data: [id number] EXAM DESCRIPTION: US - Renal Ultrasound-Complete - 02/03/2023 8:32 pm CLINICAL HISTORY: acute renal failure Flank pain COMPARISON: Stone Protocol dated 02/03/2023 FINDINGS: Both kidneys are mildly echogenic. The right kidney measures 10.3 x 6.5 x 4.8 cm. No hydronephrosis, focal mass or perinephric fluid. The left kidney measures 9.9 x 5.6 x 4.9 cm. No hydronephrosis, focal mass or perinephric fluid. The urinary bladder is incompletely distended without gross abnormality seen. IMPRESSION: Mildly echogenic kidneys suggests underlying medical renal disease. [id number] EXAM DESCRIPTION: CT - Stone Protocol - 02/03/2023 1:41 pm CLINICAL HISTORY: Flank pain. Flank pain;Fever COMPARISON: <Comparisons> TECHNIQUE: Axial images were obtained without oral or IV contrast. Lack of contrast limits solid organ and vascular assessment. The [id number] spans the entirety of the system partially obscuring uppermost abdomen and lung bases. Coronal reformatted images were obtained and reviewed. All CT scans are performed using dose optimization technique as appropriate and may include automated exposure control or mA/KV adjustment according to patient size. FINDINGS: The lower lung conner are clear. The liver contains nonspecific 21 mm low-density lesion lateral right lobe. Additional 22 mm low-density lesion inferior right lobe additional small subcentimeter lesions are present centrally and in the left lobe. These are incompletely assessed on noncontrast CT.Cholelithiasis. The pancreas and adrenal glands are normal. No pathologic lymphadenopathy in the abdomen or pelvis. Aort oiliac atherosclerosis. Small to moderate fat containing umbilical hernia. No urinary tract stones or obstructive uropathy. No bowel obstruction, free air, free fluid or abscess. The appendix is not identified as a discrete structure, however, no secondary findings of appendicitis are identified. Significant stool retention is present throughout the colon with a particularly notable amount of stool retained in the rectum. Bilateral fat containing inguinal hernias, slightly larger on the left. No significant bony abnormality. IMPRESSION: No urinary tract stones or obstructive uropathy. Cholelithiasis. There is a large amount of retained stool throughout the colon. Rectal fecal impaction also suspected. [id number] EXAM DESCRIPTION: RAD - Chest Single View - 02/03/2023 12:23 pm CLINICAL HISTORY: COUGH Chest pain. COMPARISON: <Comparisons> FINDINGS: Portable technique limits examination quality. The lungs are grossly clear. The heart is mildly enlarged in size. Chondroid lesion is seen in the shaft of the proximal right humerus.Aortic atherosclerosis. IMPRESSION: No acute intrathoracic process suspected. Reason for Exam: Right knee pain/ tenderness Report Status: Signed EXAM DESCRIPTION: RAD - Knee Right 2 View - 02/04/2023 4:36 pm CLINICAL HISTORY: Right knee pain FINDINGS: No fracture or dislocation is seen. Osteoporosis. 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 NORMAL LEFT VENTRICULAR EJECTION FRACTION 60-65% WITH NORMAL WALL MOTION 2. MODERATE CONCENTRIC LEFT VENTRICULAR HYPERTROPHY 3. LEFT ATRIAL ENLARGEMENT 4. MILD MITRAL REGURGITATION 5. 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
[2023-02-07] MEDS: ATORVASTATIN 10 MG TAB PO SCH (22:04)
[2023-02-08] MEDS: HEPARIN 5000 UNIT/ML 1 ML VIAL SQ SCH ×2 (00:34→09:18)
[2023-02-08] MEDS: NIFEDIPINE XL 60 MG TABLET PO SCH (09:16)
[2023-02-08] MEDS: MEMANTINE HCL 10 MG TABLET PO SCH (09:16)
[2023-02-08] MEDS: ASPIRIN EC 81 MG TAB PO SCH (09:16)
[2023-02-08] MEDS: OXcarbazepine 150 MG TAB PO SCH (09:17)
[2023-02-08] MEDS: HYDRALAZINE HCL 25 MG TABLET PO SCH (09:17)
[2023-02-08] MEDS: DOCUSATE NA 100 MG CAP PO SCH (09:18)
[2023-02-08 09:23] VITALS: TEMP 97.9
[2023-02-08] MEDS: FINASTERIDE 5 MG TAB PO SCH (09:30)
[2023-02-08] MEDS ORDERED: POLYETHYL GLY 3350 17 GM/DOSE PO PRN (11:57)
[2023-02-08] MEDS ORDERED: ACETAMINOPHEN 500 MG TAB PO PRN (11:57)
[2023-02-08] MEDS ORDERED: ONDANSETRON 4 MG/2 ML VIAL IV PRN (11:57)
[2023-02-08] MEDS ORDERED: SENOSIDES 8.6 MG TAB PO PRN (11:58)
[2023-02-08] MEDS ORDERED: HYDRALAZINE HCL 20 MG/ML VIAL IV PRN (11:58)
[2023-02-08] MEDS ORDERED: LABETALOL 20 MG/4ML SYRINGE IV PRN (11:59)
[2023-02-08 12:01] VITALS: O2SAT 96
--- NOTE | 2023-02-08 12:59 | P.DS ---
Admission Date: 02/03/23 Discharge Date: 02/08/23 Reason for Admission: KILO - Problems (1) Metabolic encephalopathy Status: Acute (2) Alzheimers disease Status: Chronic (3) Dementia Status: Chronic Qualifiers: Dementia type: unspecified type Dementia severity: moderate (4) CKD (chronic kidney disease) stage 4, GFR 15-29 ml/min Status: Chronic (5) Hypertension Status: Chronic Qualifiers: Hypertension type: primary hypertension Qualified Code(s): I10 - Essential (primary) hypertension (6) Anemia Status: Acute Qualifiers: Anemia type: unspecified type Qualified Code(s): D64.9 - Anemia, unspecified (7) Hyperlipidemia Status: Chronic Qualifiers: Hyperlipidemia type: moderate mixed hyperlipidemia not requiring statin therapy Qualified Code(s): E78.2 - Mixed hyperlipidemia (8) Seizures Status: Chronic (9) CVA (cerebral vascular accident) Status: Chronic Brief History of Present Illness: Date of admission: 02/03/23 Reason for admission: acute renal failure History of Present Illness: 89 yo AA male PMHX HTN, HLD, CKD, CVA, sezure disorder, Dementia; Alzheimer's disease; from home presents to ER with altered mental status. is a bedside reports fever yesterday, mild confusion, generalized weaknes x 2 days. No reported chest pain, NVD, shortness of breath or edema. Plan to admit for metabolic encephalopahty secondary to acute renal failure, elevated troponin, elevated BNP. Lab evaluation troponin 72.7, BNP 1041, BUN 32, cr 2.02, UA unremarkable, CBC microcytic anemia, BP 149 / 92; Pulse 74; Resp 14 S; Temp 98.6(O); Pulse Ox 100% on R/A; EKG s 68 beats/min. Rhythm is regular. QRS Lynch is Normal. VT interval is normal. QRS interval is normal. No Q waves. T waves are Normal. No ST changes noted. Clinical impression: Abnormal EKG without significant change CT abd IMPRESSION: No urinary tract stones or obstructive uropathy. Cholelithiasis. There is a large amount of retained stool throughout the colon. Rectal fecal impaction also suspected. CXR IMPRESSION: No acute intrathoracic process suspected.Head CT MPRESSION: No acute intracranial abnormality. Advanced atrophy and chronic microvascular ischemic Hospital Course: Mr. Holly is a pleasant 89 yo AA male with a past medical history significant for 89 yo AA male PMHX HTN, HLD, CKD, CVA, sezure disorder, Dementia; Alzheimer's disease; who was admitted to the [facility] on 02/03/23 for mild confusion, generalized weaknes . Patient also had large amount of retained stool throughout the colon. Patient was admitted and treated with IV fluid, treated with a laxative. On 02/09/2020, patient was seen on morning rounds and deemed medically stable for discharge. Patient was discharged with the approval for [facility] with instructions to schedule follow-up appointments with PCP. The patient and family members were given the opportunity to ask questions and reported no further questions. <Rafal Bustos - Last Filed: 02/08/23 12:57> Admission Date: 02/03/23 Discharge Date: 02/09/23 Hospital Course: Pt seen and examined. I agree with the note by the INSERTING PRESS OPERATOR. Ok to discharge pt to the the SNF <Charity Ascencio - Last Filed: 02/09/23 18:15> Disposition: TRANSFER TO SNF - REHAB Discharge Condition: GOOD Vital Signs/Physical Exam: Temp Pulse Resp BP Pulse Ox 97.9 F 77 16 177/82 H 96 02/08/23 11:46 02/08/23 11:46 02/08/23 11:46 02/08/23 11:46 02/08/23 11:46 General: Alert, Oriented x1 HEENT: Atraumatic, Normocephalic Neck: Supple, 2+ carotid pulse no bruit Respiratory: Clear to auscultation bilaterally, Normal air movement Cardiovascular: No edema, Normal pulses Capillary refill: <2 Seconds Gastrointestinal: Normal bowel sounds Musculoskeletal: No clubbing Integumentary: No rashes Neurological: Normal gait, Normal speech Laboratory Data at Discharge: WBC 5.10 thou/uL (4.3-10.9) 02/06/23 02:13 Hgb 10.1 g/dL (13.6-17.9) L 02/06/23 02:13 Hct 28.9 % (39.6-49.0) L 02/06/23 02:13 Plt Count 257 thou/uL (152-406) 02/06/23 02:13 PT 11.5 SECONDS (9.5-12.5) 02/03/23 12:35 INR 1.05 02/03/23 12:35 Sodium 137 mEq/L (136-145) 02/07/23 01:55 Potassium 3.9 mEq/L (3.5-5.1) D 02/07/23 14:24 BUN 42 mg/dL (7-18) H 02/07/23 01:55 Creatinine 2.08 mg/dL (0.70-1.30) H 02/07/23 01:55 Glucose 99 mg/dL (74-106) 02/07/23 01:55 Uric Acid 6.2 mg/dL (3.5-7.2) 02/07/23 01:55 Phosphorus 3.6 mg/dL (2.5-4.9) 02/07/23 01:55 Magnesium 2.0 mg/dL (1.6-2.4) 02/06/23 02:13 Total Bilirubin 0.5 mg/dL (0.2-1.0) 02/03/23 12:35 AST 19 U/L (15-37) 02/03/23 12:35 ALT 24 U/L (16-61) 02/03/23 12:35 Alkaline Phosphatase 86 U/L (45-117) 02/03/23 12:35 <Rafal Bustos - Last Filed: 02/08/23 12:57> Vital Signs/Physical Exam: Temp Pulse Resp BP Pulse Ox 97.9 F 74 16 162/84 H 96 02/08/23 11:46 02/08/23 14:36 02/08/23 11:46 02/08/23 14:36 02/08/23 11:46 Laboratory Data at Discharge: WBC 5.10 thou/uL (4.3-10.9) 02/06/23 02:13 Hgb 10.1 g/dL (13.6-17.9) L 02/06/23 02:13 Hct 28.9 % (39.6-49.0) L 02/06/23 02:13 Plt Count 257 thou/uL (152-406) 02/06/23 02:13 PT 11.5 SECONDS (9.5-12.5) 02/03/23 12:35 INR 1.05 02/03/23 12:35 Sodium 137 mEq/L (136-145) 02/07/23 01:55 Potassium 3.9 mEq/L (3.5-5.1) D 02/07/23 14:24 BUN 42 mg/dL (7-18) H 02/07/23 01:55 Creatinine 2.08 mg/dL (0.70-1.30) H 02/07/23 01:55 Glucose 99 mg/dL (74-106) 02/07/23 01:55 Uric Acid 6.2 mg/dL (3.5-7.2) 02/07/23 01:55 Phosphorus 3.6 mg/dL (2.5-4.9) 02/07/23 01:55 Magnesium 2.0 mg/dL (1.6-2.4) 02/06/23 02:13 Total Bilirubin 0.5 mg/dL (0.2-1.0) 02/03/23 12:35 AST 19 U/L (15-37) 02/03/23 12:35 ALT 24 U/L (16-61) 02/03/23 12:35 Alkaline Phosphatase 86 U/L (45-117) 02/03/23 12:35 <Charity Ascencio - Last Filed: 02/09/23 18:15> Diet: Regular Activity: Ad meghana Physician Review: Patient Assessed, Agree with Above Assessment and Plan Time spent managing pt's care (in minutes): 55 (minutes) <Rafal Bustos - Last Filed: 02/08/23 12:57> <Charity Ascencio - Last Filed: 02/09/23 18:15> Home Medications: Aspirin Chewable [Aspirin Chewable*] 81 mg PO DAILY 02/06/23 Bimatoprost [Lumigan Opthalmic Drops*] 1 drop EACH EYE BEDTIME 02/06/23 Brimonidine Tartrate/Timolol [Combigan 0.2%-0.5% Eye Drops] 1 drop EACH EYE BID 02/06/23 Donepezil HCl 10 mg PO BEDTIME 02/06/23 Finasteride [Proscar*] 5 mg PO DAILY 02/06/23 Hydralazine HCl 25 mg PO TID 02/06/23 Memantine HCl [Namenda] 5 mg PO BID 02/06/23 Nifedipine [Nifedipine ER] 30 mg PO DAILY 02/06/23 OXcarbazepine [Trileptal*] 450 mg PO BID 02/06/23 Simvastatin 40 mg PO BEDTIME 02/06/23 Physician Discharge Instructions: Mr. Holly is a pleasant 89 yo AA male with a past medical history significant for 89 yo AA male PMHX HTN, HLD, CKD, CVA, sezure disorder, Dementia; Alzheimer's disease; who was admitted to the [facility] on 02/03/23 for mild confusion, generalized weaknes . Patient also had large amount of retained stool throughout the colon. Patient was admitted and treated with IV fluid, treated with a laxative. On 02/09/2020, patient was seen on morning rounds and deemed medically stable for discharge. Patient was discharged with the approval for [facility] with instructions to schedule follow-up appointments with PCP. The patient and family members were given the opportunity to ask questions and reported no further questions. Followup: Hugo You DO [ACTIVE - CAN ADMIT] - 1-2 Weeks (call for appointment.) NONE,NONE [Primary Care Provider] - 1 Week (Call for appointment.)
[2023-02-08] MEDS ORDERED: HYDRALAZINE HCL 25 MG TABLET PO SCH (14:00)
[2023-02-08 14:12] LABS: SARS-CoV-2 Antigen Rapid Res Negative (Negative)
[2023-02-08 14:37] VITALS: BP 162/84
[2023-02-08] MEDS ORDERED: HEPARIN 5000 UNIT/ML 1 ML VIAL SQ SCH (17:00)
[2023-02-08] MEDS ORDERED: ATORVASTATIN 10 MG TAB PO SCH (21:00)
[2023-02-08] MEDS ORDERED: OXcarbazepine 150 MG TAB PO SCH (21:00)
[2023-02-08] MEDS ORDERED: NIFEDIPINE XL 60 MG TABLET PO SCH (21:00)
[2023-02-08] MEDS ORDERED: DOCUSATE NA 100 MG CAP PO SCH (21:00)
--- NOTE | 2023-02-08 22:04 | P.PN ---
Date of Service: 02/08/23 Vital Signs Temp Pulse Resp BP Pulse Ox 97.9 F 74 16 162/84 H 96 02/08/23 11:46 02/08/23 14:36 02/08/23 11:46 02/08/23 14:36 02/08/23 11:46 Microbiology Results 02/03/23 12:15 Blood - Blood Aerobic Blood Culture - Final No growth in 5 days. 02/03/23 12:15 Blood - Blood Anaerobic Blood Culture - Final No growth in 5 days. 02/03/23 12:35 Blood - Blood Aerobic Blood Culture - Final No growth in 5 days. 02/03/23 12:35 Blood - Blood Anaerobic Blood Culture - Final No growth in 5 days. 02/03/23 12:20 Nasopharnyx Influenza Type A Antigen Screen - Final 02/03/23 12:20 Nasopharnyx Influenza Type B Antigen Screen - Final Assessment/ Plan: Nephrology Progress Note No Dyspnea No Chest Pain +PO No Acute Events Overnight Limited IH/ ROS due to dementia Vital Signs, Medications, Blood Work, and Imaging reviewed in the chart General: In no apparent distress, Confused HEENT: Atraumatic Neck: Supple Respiratory: Clear to auscultation bilaterally Cardiovascular: No edema, Regular rate/rhythm Gastrointestinal: Soft and benign, Non-distended Musculoskeletal: No clubbing, No contractures Integumentary: No rashes, No cyanosis Neurological: Normal speech Laboratory Data (last 24 hrs) 02/03/23 02/03/23 02/03/23 12:35 12:35 12:35 WBC 6.20 Hgb 10.8 L Hct 32.0 L Plt Count 257 PT 11.5 INR 1.05 Sodium 141 Potassium 3.7 BUN 32 H Creatinine 2.02 H Glucose 111 H Magnesium 2.4 Total Bilirubin 0.5 AST 19 ALT 24 Alkaline Phosphatase 86 Imagings Data: [id number] EXAM DESCRIPTION: US - Renal Ultrasound-Complete - 02/03/2023 8:32 pm CLINICAL HISTORY: acute renal failure Flank pain COMPARISON: Stone Protocol dated 02/03/2023 FINDINGS: Both kidneys are mildly echogenic. The right kidney measures 10.3 x 6.5 x 4.8 cm. No hydronephrosis, focal mass or perinephric fluid. The left kidney measures 9.9 x 5.6 x 4.9 cm. No hydronephrosis, focal mass or perinephric fluid. The urinary bladder is incompletely distended without gross abnormality seen. IMPRESSION: Mildly echogenic kidneys suggests underlying medical renal disease. [id number] EXAM DESCRIPTION: CT - Stone Protocol - 02/03/2023 1:41 pm CLINICAL HISTORY: Flank pain. Flank pain;Fever COMPARISON: <Comparisons> TECHNIQUE: Axial images were obtained without oral or IV contrast. Lack of contrast limits solid organ and vascular assessment. The [id number] spans the entirety of the system partially obscuring uppermost abdomen and lung bases. Coronal reformatted images were obtained and reviewed. All CT scans are performed using dose optimization technique as appropriate and may include automated exposure control or mA/KV adjustment according to patient size. FINDINGS: The lower lung conner are clear. The liver contains nonspecific 21 mm low-density lesion lateral right lobe. Additional 22 mm low-density lesion inferior right lobe additional small subcentimeter lesions are present centrally and in the left lobe. These are incompletely assessed on noncontrast CT.Cholelithiasis. The pancreas and adrenal glands are normal. No pathologic lymphadenopathy in the abdomen or pelvis. Aortoiliac atherosclerosis. Small to moderate fat containing umbilical hernia. No urinary tract stones or obstructive uropathy. No bowel obstruction, free air, free fluid or abscess. The appendix is not identified as a discrete structure, however, no secondary findings of appendicitis are identified. Significant stool retention is present throughout the colon with a particularly notable amount of stool retained in the rectum. Bilateral fat containing inguinal hernias, slightly larger on the left. No significant bony abnormality. IMPRESSION: No urinary tract stones or obstructive uropathy. Cholelithiasis. There is a large amount of retained stool throughout the colon. Rectal fecal impaction also suspected. [id number] EXAM DESCRIPTION: RAD - Chest Single View - 02/03/2023 12:23 pm CLINICAL HISTORY: COUGH Chest pain. COMPARISON: <Comparisons> FINDINGS: Portable technique limits examination quality. The lungs are grossly clear. The heart is mildly enlarged in size. Chondroid lesion is seen in the shaft of the proximal right humerus.Aortic atherosclerosis. IMPRESSION: No acute intrathoracic process suspected. Reason for Exam: Right knee pain/ tenderness Report Status: Signed EXAM DESCRIPTION: RAD - Knee Right 2 View - 02/04/2023 4:36 pm CLINICAL HISTORY: Right knee pain FINDINGS: No fracture or dislocation is seen. Osteoporosis. 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 NORMAL LEFT VENTRICULAR EJECTION FRACTION 60-65% WITH NORMAL WALL MOTION 2. MODERATE CONCENTRIC LEFT VENTRICULAR HYPERTROPHY 3. LEFT ATRIAL ENLARGEMENT 4. MILD MITRAL REGURGITATION 5. 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
[2023-02-09] MEDS ORDERED: MEMANTINE HCL 10 MG TABLET PO SCH (09:00)
[2023-02-09] MEDS ORDERED: ASPIRIN EC 81 MG TAB PO SCH (09:00)
[2023-02-09] MEDS ORDERED: FINASTERIDE 5 MG TAB PO SCH (09:00)
== END 2023-02-08 15:25 | DRG 682 ==
LOC: ER 11:32 → ERHOLD 15:24 → 2ND 20:56
PROVIDERS: ADMIT Hospitalist; ATTEND Hospitalist
DX: N17.9 Acute kidney failure, unspecified (principal); G93.41 Metabolic encephalopathy; G30.9 Alzheimer's disease, unspecified; F02.80 Dementia in other diseases classified elsewhere, unspecified severity, without behavioral disturbance, psychotic disturbance, mood disturbance, and anxiety; K80.20 Calculus of gallbladder without cholecystitis without obstruction; G40.909 Epilepsy, unspecified, not intractable, without status epilepticus; I12.9 Hypertensive chronic kidney disease with stage 1 through stage 4 chronic kidney disease, or unspecified chronic kidney disease; N18.4 Chronic kidney disease, stage 4 (severe); D63.1 Anemia in chronic kidney disease; N40.1 Benign prostatic hyperplasia with lower urinary tract symptoms; M25.561 Pain in right knee; I16.0 Hypertensive urgency; E78.2 Mixed hyperlipidemia; E87.6 Hypokalemia; K56.41 Fecal impaction; M17.11 Unilateral primary osteoarthritis, right knee; M25.461 Effusion, right knee; R31.29 Other microscopic hematuria; R73.9 Hyperglycemia, unspecified; R77.8 Other specified abnormalities of plasma proteins; Z11.52 Encounter for screening for COVID-19; Z79.82 Long term (current) use of aspirin; Z86.73 Personal history of transient ischemic attack (TIA), and cerebral infarction without residual deficits; Z79.899 Other long term (current) drug therapy
CPT/HCPCS: 36415; 70450; 71045; 74018; 74176; 76377; 76770; 80048; 80069; 80076; 81001; 82043; 82550; 82570; 82947; 83036; 83605; 83735; 83880; 84100; 84132; 84156; 84484; 84550; 85025; 85610; 87040; 87804; 87811; 93005; 93306; 96374; 96375; 97161; 97530; 99285; J0360; J0696; J1644; J1940; J7030; J7040

== ENCOUNTER → 2023-04-02 | Emergency (ER) | payer OTHER ==
[~2023-04-02] MED LIST: HYDRALAZINE HCL 20 MG/ML VIAL ONE; KCL 20 MEQ/100 mL IVPB 100 ML IV ONE; NA CHLORIDE 0.9% 250 ML ONE; NA CHLORIDE 0.9% 500 ML ONE; PANTOPRAZOLE 40 MG INJ ONE; POTASSIUM 25 MEQ EFFERV TAB ONE
[2023-04-02 17:40] LABS: Absolute Lymphocytes (CBC) 1.6 K/uL (0.7-4.9); Hematocrit 23.8 % (39.6-49.0); Lymphocytes % 25.5 % (15.3-44.8); MCV 88.1 fL (80-100); MPV 7.3 fL (7.6-11.3); Platelets 613 thou/uL (152-406); RBC Red Blood Cell Count 2.71 M/uL (4.33-5.43)
--- NOTE | 2023-04-02 18:01 | RAD REPORT ---
EXAM DESCRIPTION: Raimundo Single View04/02/2023 5:55 pm CLINICAL HISTORY: dark colored stools COMPARISON: Abdomen 1 View (KUB) dated 02/05/2023; Chest Single View dated 02/03/2023 TECHNIQUE: Portable AP view of the chest. FINDINGS: The lungs are clear. No pneumothorax or effusion. The cardiomediastinal contours are uncha nged, with prominent central vascular markings and tortuosity of the thoracic aorta. Geographic long segment sclerotic densities within the proximal right humeral shaft are stable, may r eflect sequelae of prior bone infarcts. IMPRESSION: No acute cardiopulmonary process. Stable findings as above.
[2023-04-02 20:18] LABS: Protime INR 1.21
[2023-04-02 20:48] LABS: Albumin 1.9 g/dL (3.4-5.0); Bilirubin Direct 0.1 mg/dL (0-0.2); Bilirubin Indirect, Calculated 0.2 mg/dL (0.2-0.8); Bilirubin Total 0.3 mg/dL (0.2-1.0); Magnesium 1.7 mg/dL (1.6-2.4); Protein, Total 6.5 g/dL (6.4-8.2)
[2023-04-02 21:11] LABS: Potassium 2.4 mEq/L (3.5-5.1)
--- NOTE | 2023-04-02 21:28 | ER ---
Nurse's Notes [facility] Name: Boubacar Holly Age: 87 yrs Sex: Male : 1935 Arrival Date: 04/02/2023 Time: 17:01 Bed 4 Private MD: Diagnosis: Anemia in other chronic diseases classified elsewhere;GI Bleed/ Gastrointestinal hemorrhage, unspecified;Subsequent non-ST elevation (NSTEMI) myocardial infarction;Hypokalemia Presentation: 04/02 17:03 Chief complaint: EMS states: patient has been having dark/tarry stools for approx 2 ap3 weeks. patients PCP advised the patient to come in and be evaluated. Coronavirus screen: At this time, the client does not indicate any symptoms associated with coronavirus-19. Ebola Screen: No symptoms or risks identified at this time. Initial Sepsis Screen: Does the patient meet any 2 criteria?. Risk Assessment: Do you want to hurt yourself or someone else? Patient reports no desire to harm self or others. Onset of symptoms was March 19, 2023. 17:03 Method Of Arrival: EMS: [facility] ap3 17:36 Initial Sepsis Screen: Does the patient meet any 2 criteria? Does the patient have a ll1 suspected source of infection? Yes: Acute abdominal pain. 17:36 Acuity: MAURICE 3 ll1 Triage Assessment: 17:36 General: Appears uncomfortable, Behavior is calm, cooperative, appropriate for age. ll1 Pain: Complains of pain in abdomen. GI: Reports rectal bleeding, bloody stool. Historical: - Allergies: 17:04 No Known Allergies; ap3 - PMHx: 17:04 Alzheimer's disease; Cerebrovascular accident; Dementia; Hypertensive disorder; Seizure;ap3 - Immunization history:: Adult Immunizations up to date. - Social history:: Smoking status: unknown. Screenin:05 Abuse screen: Denies threats or abuse. Nutritional screening: No deficits noted. ap3 Tuberculosis screening: No symptoms or risk factors identified. 04/03 00:[address] [facility] ED Fall Risk Assessment (Adult) History of falling in the last 3 months, jj7 including since admission No falls in past 3 months (0 pts) Confusion or Disorientation Yes (5 pts) Intoxicated or Sedated No (0 pts) Impaired Gait Yes (1 pt) Mobility Assist Device Used No (0 pt) Altered Elimination Yes (1 pt) Score/Fall Risk Level 3 or more points = High Risk Maintained a safe environment, Educated pt \T\ family on fall prevention, incl call for assistance when getting out of bed. Assessment: 04/02 19:15 General: Appears in no apparent distress. comfortable, Behavior is calm, cooperative. jj7 20:45 Reassessment: PT CLEANED AND BRIEF CHANGED AFTER STRAIGHT CATH. DARK BUT NOT TARRY jj7 STOOL NOTED IN BRIEF. PT READJUSTED IN BED FOR COMFORT. 20:51 GI: Stools are reported to be soft. Last BM at 20:53. jj7 04/03 00:10 Reassessment: BLOOD INFUSION CONTINUED UPON TRANSFER WITH [facility] FROM [facility]. jj7 00:31 Reassessment: REPORT GIVEN TO FRAN RN AT [facility]. Vital Signs: 04/02 17:34 BP 189 / 90; Pulse 74; Resp 17; Temp 98; Pulse Ox 94% ; ll1 19:15 BP 155 / 89; Pulse 76; Resp 15; Pulse Ox 96% ; jj7 20:00 BP 155 / 68; Pulse 71; Resp 16; Pulse Ox 100% ; jj7 21:00 BP 117 / 83; Pulse 77; Resp 17; Pulse Ox 100% ; jj7 21:51 Weight 83.91 kg (R); vc1 22:00 BP 158 / 90; Pulse 73; Resp 16; Pulse Ox 100% ; jj7 22:30 Height 5 ft. 9 in. (R); vc1 23:05 BP 171 / 91; Pulse 71; Resp 16; Pulse Ox 98% ; jj7 04/03 00:13 BP 167 / 97; Pulse 78; Resp 17; Temp 98.2; Pulse Ox 100% on R/A; jj7 ED Course: 04/02 17:03 Patient arrived in ED. ap3 17:03 Wilner Newman PA is PHCP. cp 17:04 Zain Conley DO is Attending Physician. cp 17:17 Watson Lyn, JASMYNE is Primary Nurse. ll1 17:35 Arm band placed on Patient placed in an exam room, on a stretcher. ll1 17:35 Initial lab(s) drawn, by me, sent to lab. Missed attempt(s): 22 gauge in right forearm. ll1 Bleeding controlled, band aid applied, catheter tip intact. 17:36 Triage completed. ll1 17:36 Patient has correct armband on for positive identification. Bed in low position. Call ll1 light in reach. Client placed on continuous cardiac and pulse oximetry monitoring. NIBP monitoring applied. cigarette machine filler on. 17:57 XRAY Chest (1 view) In Process Unspecified. EDMS 19:45 Inserted saline lock: 20 gauge in left antecubital area, using aseptic technique. nj1 ,using aseptic technique. Ultrasound guided. Catheter tip well visualized within vasculature during placement. Blood collected. 20:26 Type And Screen Sent. jj7 20:26 No provider procedures requiring assistance completed. jj7 20:44 Straight cath inserted, using sterile technique, 16 Fr. Returned clear yellow urine. jj7 Patient tolerated well. 21:10 Initiated a transfer to [facility], spoke with Jeniffer. ty 21:23 Urinalysis W/Microscopic Sent. jj7 21:50 Contacted by Jeniffer from [facility] advised [facility] is at capacity and is not ty accepting patients. Asked about [facility], was informed will call back. 22:10 Contacted by Jeniffer from [facility] advised [facility] is at ty capacity and is not accepting patients. 22:19 Initiated transfer to [facility], spoke with Nguyen Black. ty 22:31 Initiated transfer to [facility] spoke with Yulissa watson. ty 23:07 Contacted by Yulissa Watson and was accepted for a bed in the ER. ty 23:08 Called [facility] and advised patient was accepted into another hospital. ty 23:08 Inserted saline lock: 22 gauge in right antecubital area, using aseptic technique. jj7 ,using aseptic technique. DIFFUSIC. 23:31 contacted [facility] for patient transport, LJMARÍA ELENA advised they will be able to ty transport. ETA 10-15 minutes. 23:40 Consent for blood and/or blood product transfusion explained by staff, signed by spouse.jj7 04/03 00:21 Patient transferred, IV remains in place. jj7 00:23 Packed RBC Leukored Sent. jj7 Administered Medications: 04/02 20:26 Drug: Pantoprazole IVP 40 mg IVP once Route: IVP; Site: left antecubital; jj7 01/30 00:22 Follow up: Response: No adverse reaction 04/02 20:26 Drug: NS 0.9% IV 250 ml IV at bolus once Route: IV; Rate: bolus; Site: left antecubital; 21:00 Follow up: IV Status: Completed infusion 20:30 Drug: Pantoprazole IV 8 mg/hr IV at 25 ml/hr continuous; (Standard dilution is 80 mg in 7 250 mL NS) Route: IV; Rate: 25 ml/hr; Site: left antecubital; 04/03 00:23 Follow up: IV Status: Infusion continued upon transfer 04/02 21:22 Not Given (Hemodynamic Parameters): [id number] mg IVP once 22:38 Drug: Potassium PO Effervescent Tablet 50 mEq PO once; dissolve in 4 ounces of water or jw7 juice Route: PO; 04/03 00:22 Follow up: Response: No adverse reaction 04/02 22:39 Drug: Potassium Chloride IV 20 mEq IV at calculated rate once; administer over 1-2 jw7 hours Route: IV; Rate: calculated rate; Site: left antecubital; 04/03 00:22 Follow up: IV Status: Infusion continued upon transfer Medication: 04/02 20:48 VIS not applicable for this client. jj7 23:50 Blood products: PRBCs X 1 unit given. jj7 Outcome: 21:28 ER care complete, transfer ordered by MD. jaramillo 04/03 00:21 Transferred by [facility] to [facility], Transfer form jj7 completed. X-rays sent w/ patient. Condition: good 00:24 Patient left the ED. jj7 Signatures: Dispatcher [employer] EDMS Wilner Newman PA PA cp Prokisch, Amanda RN RN ap3 Watson Lyn RN RN ll1 Josseline Rosario RN RN vc1 Rosa Maria Correa RN RN jw7 Bay Sánchez RN RN jj7 Payal Grey RN RN nj1 Cisco Brower Corrections: (The following items were deleted from the chart) 04/02 22:39 22:38 Potassium Chloride IV 20 mEq IV at calculated rate in right antecubital jw7 jw7 04/03 01:36 04/02 22:10 Initiated a transfer to [facility], spoke with Jeniffer alvares ty 04/03 01:36 04/02 21:10 Initiated a transfer to [facility], spoke with Jeniffer alvares ty 04/03 01:46 04/02 22:31 Initiated transfer to [facility], spoke with Yulissa Watson at ty 2231 ty
--- NOTE | 2023-04-02 21:29 | EDPHYS ---
Physician Documentation [facility] Name: Boubacar Holly Age: 87 yrs Sex: Male : 1935 Arrival Date: 04/02/2023 Time: 17:01 Bed 4 Private MD: ED Physician Zain Conley HPI: 04/02 17:23 This 87 yrs old Black Male presents to ER via EMS with complaints of Dark Colored cp Stools. 17:23 The patient presents to the emergency department with rectal bleeding, dark red blood cp with bowel movement with multiple such episodes. Onset: The symptoms/episode began/occurred 2 week(s) ago. Abdominal pain: none is appreciated. Associated signs and symptoms: Pertinent negatives: chest pain, constipation, diarrhea, fever. 17:23 Patient is bed bound with limited use of lower extremities. Takes aspirin and no other cp blood thinners. Historical: - Allergies: 17:04 No Known Allergies; ap3 - PMHx: 17:04 Alzheimer's disease; Cerebrovascular accident; Dementia; Hypertensive disorder; Seizure;ap3 - Immunization history:: Adult Immunizations up to date. - Social history:: Smoking status: unknown. ROS: 17:24 Constitutional: Negative for fever, cp 17:24 Cardiovascular: Negative for chest pain, 17:24 Abdomen/GI: Positive for black/tarry stool, Negative for abdominal pain, vomiting, diarrhea, constipation, 17:24 : Negative for testicular pain 17:24 Neuro: Negative for altered mental status, 17:24 Eyes: Negative for injury, pain, redness, and discharge, cp 17:24 Respiratory: Negative for cough, shortness of breath, wheezing, 17:24 Skin: Positive for pressure ulcers to coccyx and left heel of foot, 17:24 All other systems are negative, cp Exam: 17:30 Constitutional: The patient appears in no acute distress, alert, awake, cp non-diaphoretic, non-toxic, well developed, well nourished, 17:30 Head/Face: Normocephalic, atraumatic. cp 17:30 Eyes: Periorbital structures: appear normal, Conjunctiva: normal, no exudate, no cp injection, Sclera: no appreciated abnormality, Lids and lashes: appear normal, bilaterally, 17:30 ENT: External ear(s): are unremarkable, Nose: is normal, Mouth: Lips: moist, Oral mucosa: moist, Posterior pharynx: is normal, airway is patent, no erythema, no exudate, 17:30 Chest/axilla: Inspection: normal, 17:30 Cardiovascular: Rate: normal, Rhythm: regular, Edema: is not appreciated, JVD: is not cp appreciated, 17:30 Respiratory: the patient does not display signs of respiratory distress, Respirations: normal, no use of accessory muscles, no retractions, labored breathing, is not present, Breath sounds: are clear throughout, no decreased breath sounds, no stridor, no wheezing, 17:30 Abdomen/GI: Inspection: abdomen appears normal, Palpation: abdomen is soft and non-tender, in all quadrants, Rectal exam: Stool: black, 17:30 Back: pain, is absent, ROM is normal, 17:30 Skin: pressure ulcers to coccyx area with minimal pressure ulcer to left heel of foot. 17:30 Neuro: Orientation: no acute changes, per family, Mentation: no acute changes, per family, Motor: no acute changes, moves upper extremities, 17:45 ECG was reviewed by the Attending Physician. cp Vital Signs: 17:34 BP 189 / 90; Pulse 74; Resp 17; Temp 98; Pulse Ox 94% ; ll1 19:15 BP 155 / 89; Pulse 76; Resp 15; Pulse Ox 96% ; jj7 20:00 BP 155 / 68; Pulse 71; Resp 16; Pulse Ox 100% ; jj7 21:00 BP 117 / 83; Pulse 77; Resp 17; Pulse Ox 100% ; jj7 21:51 Weight 83.91 kg (R); vc1 22:00 BP 158 / 90; Pulse 73; Resp 16; Pulse Ox 100% ; jj7 22:30 Height 5 ft. 9 in. (R); vc1 23:05 BP 171 / 91; Pulse 71; Resp 16; Pulse Ox 98% ; jj7 04/03 00:13 BP 167 / 97; Pulse 78; Resp 17; Temp 98.2; Pulse Ox 100% on R/A; jj7 MDM: 04/02 17:04 Patient medically screened. cp 18:00 Differential diagnosis: gastritis, diverticulitis, hemorrhoids, hemorrhagic shock, cp sepsis. 21:35 Data reviewed: vital signs, nurses notes, lab test result(s), EKG, radiologic studies, cp plain films, I have discussed the patient's presentation/case with the attending Emergency Department Physician; and as a result, I will transfer patient for GI services. 21:35 I considered the following discharge prescriptions or medication management in the emergency department Medications were administered in the Emergency Department. See MAR. Independent interpretation of the following test(s) in the Emergency Department EKG: See my EKG interpretation above. Care significantly affected by the following chronic conditions: Hypertension, dementia and Alzheimer's. 23:08 ED course: consult with DR Chadwick, hospitalist \T\[facility], will accept patient as transfer. 04/02 17:58 Order name: Type And Screen 04/02 17:16 Order name: Basic Metabolic Panel; Complete Time: 21:20 04/02 21:20 Interpretation: Normal except: NA 135; K 2.4; BUN 23; CRE 1.53; GFR 44. 04/02 17:16 Order name: CBC with Diff; Complete Time: 17:58 04/02 17:58 Interpretation: Normal except: RBC 2.71; HGB 8.0; HCT 23.8; PLT 613; MPV 7.3; BASO% 1.8. 04/02 17:16 Order name: LFT's; Complete Time: 21:20 04/02 21:20 Interpretation: Normal except: ALT 11; ALB 1.9; GLOB 4.6; A/G 0.4. 04/02 17:16 Order name: Magnesium; Complete Time: 21:20 04/02 17:16 Order name: NT PRO-BNP; Complete Time: 21:20 04/02 21:20 Interpretation: Normal except: NT PRO-BNP 1319. 04/02 17:16 Order name: PT-INR; Complete Time: 20:56 04/02 20:57 Interpretation: Reviewed. 04/02 17:16 Order name: Troponin HS; Complete Time: 21:20 04/02 21:20 Interpretation: Abnormal: Troponin HS 194.0. 04/02 17:16 Order name: Ptt, Activated; Complete Time: 20:56 04/02 17:25 Order name: Urinalysis W/Microscopic; Complete Time: 23:03 04/02 21:29 Order name: Packed RBC Leukored [facility] 04/02 21:31 Order name: ABO/RH no charge; Complete Time: 21:52 [facility] 04/02 17:16 Order name: XRAY Chest (1 view); Complete Time: 18:05 04/02 18:05 Interpretation: Report review. 04/02 17:16 Order name: EKG; Complete Time: 17:17 04/02 17:16 Order name: Cardiac monitoring; Complete Time: 17:34 04/02 17:16 Order name: EKG - Nurse/Tech; Complete Time: 17:34 04/02 17:16 Order name: IV Saline Lock; Complete Time: 17:18 04/02 17:16 Order name: Labs collected and sent; Complete Time: 17:18 04/02 17:16 Order name: O2 Per Protocol; Complete Time: 17:18 04/02 17:16 Order name: O2 Sat Monitoring; Complete Time: 17:18 04/02 17:42 Order name: Labs - recollect needed: recollect blue and green top; Complete Time: 20:16 bd EC:45 Rate is 69 beats/min. Rhythm is regular. [place] interval is normal. QRS interval is cp prolonged at 112 msec. QT interval is normal. Interpreted by me. Reviewed by me. Administered Medications: 20:26 Drug: Pantoprazole IVP 40 mg IVP once Route: IVP; Site: left antecubital; [facility] 04/03 00:22 Follow up: Response: No adverse reaction [facility] 04/02 20:26 Drug: NS 0.9% IV 250 ml IV at bolus once Route: IV; Rate: bolus; Site: left antecubital;[facility] 21:00 Follow up: IV Status: Completed infusion [facility] 20:30 Drug: Pantoprazole IV 8 mg/hr IV at 25 ml/hr continuous; (Standard dilution is 80 mg in [facility] 250 mL NS) Route: IV; Rate: 25 ml/hr; Site: left antecubital; 04/03 00:23 Follow up: IV Status: Infusion continued upon transfer [facility] 04/02 21:22 Not Given (Hemodynamic Parameters): [id number] mg IVP once [facility] 22:38 Drug: Potassium PO Effervescent Tablet 50 mEq PO once; dissolve in 4 ounces of water or jw7 juice Route: PO; 04/03 00:22 Follow up: Response: No adverse reaction jj7 04/02 22:39 Drug: Potassium Chloride IV 20 mEq IV at calculated rate once; administer over 1-2 jw7 hours Route: IV; Rate: calculated rate; Site: left antecubital; 04/03 00:22 Follow up: IV Status: Infusion continued upon transfer jj7 Disposition: 04/02 17:36 I was immediately available on-site in the Emergency Department for consultation in the ms3 care of the patient. Disposition Summary: 04/02/23 21:28 Transfer Ordered Notes: Reason: Higher level of care cp Condition: Stable cp Problem: new cp Symptoms: have improved cp Transfer Location: [facility](04/02/23 23:08) cp Accepting Physician: DR Chadwick(04/03/23 00:24) jj7 Diagnosis - Anemia in other chronic diseases classified elsewhere cp - GI Bleed/ Gastrointestinal hemorrhage, unspecified cp - Subsequent non-ST elevation (NSTEMI) myocardial infarction cp - Hypokalemia cp Forms: - Medication Reconciliation Form cp - SBAR form cp Signatures: Dispatcher [employer] EDMS Medina Loera Corey, PA PA cp Prokisch, Amanda RN RN ap3 Watson Lyn RN RN ll1 Zain Conley DO DO ms3 Rosa Maria Correa RN RN jw7 Bay Sánchez RN RN jj7 Corrections: (The following items were deleted from the chart) : 21:28 Doctor cp cp : 21:28 [facility] cp cp 23:08 : Doctor cp cp 23:08 21:28 [employer] cp cp 04/03 00:24 04/02 23:08 DR Chadwick cp jj7
[2023-04-02 22:10] LABS: Renal Epithelial <5 /HPF (None Seen); Urine Bacteria None Seen /HPF (<20); Urine Bilirubin NEGATIVE (Negative); Urine Blood Negative (Negative); Urine Clarity Clear (Clear); Urine Color Light-Yellow (Yellow); Urine Glucose NEGATIVE (Negative); Urine Protein TRACE (Negative); Urine RBC <5 /HPF (None Seen); Urine Urobilinogen Normal (Normal)
[2023-04-03 04:47] VITALS: BP 167/97; TEMP 98.2; O2SAT 100
== END ==
LOC: ER 17:01
PROC: 30233N1 Transfusion of Nonautologous Red Blood Cells into Peripheral Vein, Percutaneous Approach (ICD-10-PCS; principal; 2023-04-02)
DX: D64.9 Anemia, unspecified (principal); I21.4 Non-ST elevation (NSTEMI) myocardial infarction; E87.6 Hypokalemia; I10 Essential (primary) hypertension; G30.9 Alzheimer's disease, unspecified; F02.80 Dementia in other diseases classified elsewhere, unspecified severity, without behavioral disturbance, psychotic disturbance, mood disturbance, and anxiety; Z79.82 Long term (current) use of aspirin
CPT/HCPCS: 93005; 85025; 81001; 80048; 36415; 86900; 83735; 86850; 85610; 86901; 80076; 85730; 86920; 84484; 83880; 71045; 36430; J3480; C9113 ×2; P9016; J7050 ×3; J0360